=== PATIENT | male | born 1935 | race Caucasian/White ===

== ENCOUNTER 2018-02-01 08:48 | Outpatient (CLI) | payer MEDICARE, MEDICAID ==
--- NOTE | 2018-02-01 11:06 | CT ---
CT OF THE CHEST WITH CONTRAST: Comparison: 12-27-06, chest x-ray 11-14-16. History: Abnormal chest x-ray with shortness of breath. Technique: Multiple contiguous axial images were obtained in a CT of the chest with contrast. Coronal reformats were performed. FINDINGS: There is a calcified granuloma in the right middle lobe. There is a small left pleural effusion with adjacent atelectasis versus infiltrate. No other infiltrates are seen in the lungs. The heart is normal in size without focal cardiac abnormality. No hilar or mediastinal lymphadenopath y are seen. Atherosclerotic calcifications are seen in the aorta. Calcifications are also seen in the coronary arteries. Degenerative changes are seen in the spine. There are cysts in the left kidney measuring up to 6.6 c m in size. There appears to be a small cyst in the liver. The other visualized subdiaphragmatic struc tures are unremarkable. The chest wall soft tissues are unremarkable. IMPRESSION: 1. Small left pleural effusion with adjacent atelectasis versus infiltrate. 2. Left renal cysts. 3. Hepatic cyst. POS: JESÚS
== END 2018-02-01 08:49 | disposition home or self-care (01) ==
LOC: CT 08:48
PROVIDERS: ATTEND Internal Medicine
DX: R91.8 Other nonspecific abnormal finding of lung field (principal); J90 Pleural effusion, not elsewhere classified; N28.1 Cyst of kidney, acquired; K76.89 Other specified diseases of liver
CPT/HCPCS: 71260; 82565

== ENCOUNTER 2018-11-18 03:24 | Inpatient (IN) | payer MEDICARE, MEDICAID ==
[2018-11-18 03:50] LABS: Mean Corpuscular HGB CONC 32.6 g/dL (32.0-36.0); Mean Corpuscular Hemoglobin 30.1 pg (27.0-31.0); Mean Corpuscular Volume 92.2 fL (78.0-98.0); Mean Platelet Volume 9.9 fL (7.4-10.4); Platelet Count 160 thou/uL (130-400); RBC Distribution Width 13.9 % (11.5-14.5); Red Blood Cell (RBC) Count 3.99 mill/uL (4.70-6.10)
[2018-11-18] MEDS ORDERED: Norepinephrine 8 MG/0.9% NS 250 ML ONE (03:58)
[2018-11-18 04:04] LABS: Lactate 1.16 mmol/L (0.50-2.20)
[2018-11-18 04:10] LABS: Band 3 % (5-11); Hypochromia SLIGHT = 6-15 cells (100X) (0-5/hpf); Lymphocytes 4 % (21-51); MDiff Complete? YES; Monocytes 3 % (0-10); Neutrophil 90 % (42-75); Platelet Morphology Comment Appears Adequate
[2018-11-18 04:13] LABS: ALT (SGPT) 8 U/L (8-55); AST (SGOT) 16 U/L (5-34); Albumin 3.2 g/dL (3.4-4.8); Alkaline Phosphatase 81 U/L (40-150); Anion Gap 14 mmol/L (10-20); BUN (Urea Nitrogen) 44 mg/dL (8.4-25.7); Bilirubin, Total 0.5 mg/dL (0.2-1.2); Calc. Creatinine Clearance 0 mL/min (70-130); Calcium 8.6 mg/dL (7.8-10.44); Carbon Dioxide 22 mmol/L (23-31); Chloride 108 mmol/L (98-107); Estimated GFR-MDRD 30; Glucose 143 mg/dL (83-110); Lipase 19 U/L (8-78); Potassium 3.8 mmol/L (3.5-5.1); Protein, Total 6.2 g/dL (5.8-8.1); Sodium 140 mmol/L (136-145)
[2018-11-18 04:22] LABS: Bilirubin Small (Negative); Blood, Urine Small (Negative); Clarity CLOUDY (Clear); Glucose, Urine (Dipstick) Negative (Negative); Leukocyte Negative (Negative); Nitrite Negative (Negative); Protein, Urine (Dipstick) 100 mg/dL (Neg-Trace); Specific Gravity, Urine 1.024 (1.002-1.036)
[2018-11-18 04:25] LABS: Bacteria/HPF None Seen HPF (None Seen)
[2018-11-18 04:27] LABS: Pathc Cast-AUWi Flag 10.61 (0-2.49)
[2018-11-18 04:36] LABS: Hyaline Casts/LPF 0-3 HYALINE CAST LPF (0-3 Hyaline); Other Casts/LPF 0-3 COARSE GRAN LPF (0-3 Hyaline); Renal Epithelial None Seen HPF (0-3); Transitional Epithelial NONE SEEN HPF (0-3)
[2018-11-18 04:40] LABS: CKMB 2.9 ng/mL (0-6.6)
[2018-11-18 06:34] LABS: PTT 41.6 SEC (22.9-36.1); Prothrombin Time 22.3 SEC (12.0-14.7)
[2018-11-18] MEDS ORDERED: Cefepime 2 GM in Sodium Chloride 0.9% 100 ML IVPB SCH (06:45)
[2018-11-18] MEDS ORDERED: Diabetic Tussin 200 MG/10 ML UDCUP PO PRN (07:22)
[2018-11-18] MEDS ORDERED: Loratadine 10 MG TAB PO PRN (07:22)
[2018-11-18] MEDS ORDERED: Acetaminophen 650 MG Suppository PR PRN (07:22)
[2018-11-18] MEDS ORDERED: VANC AND ABX IVPB PRN (07:22)
[2018-11-18] MEDS ORDERED: Bisacodyl 5 MG TAB PO PRN (07:22)
[2018-11-18] MEDS ORDERED: Acetaminophen 325 MG TAB PO PRN (07:22)
[2018-11-18] MEDS ORDERED: Cepastat Lozenges 1 LOZ PO PRN (07:22)
[2018-11-18] MEDS ORDERED: Artificial Tears 18 DROP/0.9 ML EA EYE PRN (07:22)
[2018-11-18] MEDS ORDERED: Sodium Chloride 0.65% Nasal 44 ML BOT EA NARE PRN (07:22)
[2018-11-18] MEDS ORDERED: Ondansetron PF 4 MG/2 ML Vial IVP PRN (07:22)
[2018-11-18] MEDS ORDERED: Senokot S 8.6-50 MG TAB PO PRN (07:22)
[2018-11-18] MEDS ORDERED: Eucerin (Mineral Oil/Petrolatum,White) 30 gm Jar TOP PRN (07:22)
[2018-11-18] MEDS ORDERED: Bisacodyl 10 MG SUPP PR PRN (07:22)
[2018-11-18] MEDS ORDERED: Ondansetron ODT 4 MG TAB SL PRN (07:22)
[2018-11-18] MEDS ORDERED: Sodium Chloride 0.9% 1,000 ML IV SCH (07:30)
[2018-11-18] MEDS ORDERED: Norepinephrine 8 MG/0.9% NS 250 ML IVPB SCH (07:30)
--- NOTE | 2018-11-18 07:36 | CT ---
CT OF THE BRAIN WIHOUT CONTRAST: Date: 11/18/18 INDICATION: Altered mental status and fever. COMPARISON: None. FINDINGS: There is generalized cerebral and cerebellar atrophy. There is moderate chronic small vessel white ma tter ischemic change. There is some mild prominence of the lateral ventricles, likely related to gene ralized atrophy. There is a remote lacunar infarct involving both cerebellar hemispheres. There is pr ominent sulcation involving the left frontal convexity, best seen on image 24 of series 2, that is romano spicious for prior remote cortical infarct versus potentially an extra-axial CSF density lesion such as an arachnoid cyst. No acute intracranial hemorrhage is evident. Septum pellucidum and third ventri reynold are midline. Skull is intact. There is mucosal thickening within the ethmoid air cells. There is a mild right mastoid effusion. IMPRESSION: 1. No definite acute intracranial abnormality. 2. Prominent cerebral and cerebellar atrophy with slight prominence of the lateral ventricle, most l ikely related to ex vacuo dilatation. 3. Remote lacunar infarcts involving the cerebellar hemispheres, left basal ganglia with prominent h ypodensity involving the left frontal convexity which may reflect a cortically based infarct with enc ephalomalacia versus potentially an extra-axial arachnoid cyst. Follow-up MRI of the brain with and w ithout contrast may be helpful for improved characterization. POS: LAURA
--- NOTE | 2018-11-18 08:03 | RAD ---
CHEST 1 VIEW: Date: 11/18/18 INDICATION: Emergency room examination for fever. COMPARISON: Prior exam dated 11/14/[address] examination dated 02/01/18. FINDINGS: The left lower lobe air space consolidation persists. Cardiomegaly and pulmonary vascular congestion present. Chronic lung changes are similar appearing. Calcified granuloma in the right middle lobe per sists. No acute osseous abnormality is evident. IMPRESSION: Persistent consolidation of the left lower lobe. Findings may reflect an obstructive pneumonia or pos sibly recurrent aspiration. Repeat CT examination of the thorax may be helpful for better characteriz ation. POS: BH
[2018-11-18 08:09] LABS: Troponin I 1.682 ng/mL (< 0.028)
[2018-11-18] MEDS ORDERED: Famotidine/PF 20 mg/2ml Vial SLOW IVP SCH (09:00)
[2018-11-18] MEDS ORDERED: Famotidine 20 MG TAB PO SCH (09:00)
[2018-11-18] MEDS: Sodium Chloride 0.9% 1,000 ML IV SCH ×2 (10:30→20:16)
--- NOTE | 2018-11-18 10:49 | HP ---
PRIMARY CARE PHYSICIAN: Dr. Lilly. REASON FOR ADMISSION: Septic shock. HISTORY OF PRESENT ILLNESS: An 83-year-old male who lives at [facility]. Paramedics were called because the patient was having fever, hypoxia, tachycardia, and hypotension. His temperature was 101.2. He was unresponsive. As per , the patient is normally alert and oriented x1 or 2, but he was yesterday more lethargic and not following any commands. He appeared altered from his baseline and that is why the patient was sent to emergency room. In the emergency room, the patient's blood pressure was low at 66/39. Sepsis alert was initiated. He had central line placed. He required Levophed drip as well as a Claudia Hugger for relatively low temperature. The patient's blood pressure improved after Levophed in the emergency room. This morning, the was present at bedside, who reports that she saw him two days ago. At that time, he appeared baseline. The patient does have intermittent cough after thin liquid. He is on modified mechanical soft diet and nectar-thick liquid. He had a PEG tube couple of years ago, which was discontinued and removed. The [facility] prison, but is present, who reports that CPR is okay in case of cardiopulmonary arrest happens, but she is strictly against about intubation. The patient is altered from his baseline. He is not able to provide any good history, but to direct question, he denies any chest pain or palpitation. He feels mild congestion. He denies any upper respiratory symptoms. He denies any constipation, diarrhea, melena, or hematochezia. He does not have any UTI symptoms. prison people noted that he was coughing and he was having wheezing for last couple of days. REVIEW OF SYSTEMS: All review of systems tried to review the patient, but unable to review and not reliable because of altered mental status with encephalopathy. PAST MEDICAL HISTORY: Advanced Alzheimer dementia; osteoarthritis; oropharyngeal dysphagia, on modified diet; gout; glaucoma, cataract; history of TIA; hypertension; peripheral vascular disease; benign enlargement of prostate; history of throat cancer, required radiation. PAST SURGICAL HISTORY: Hemorrhoid surgery, back surgery, tracheostomy, and subsequent reversal. PAST PSYCHIATRIC HISTORY: Anxiety, depression, and dementia. SOCIAL HISTORY: The patient has DNR status at prison. He lives at [facility]. No history of tobacco, alcohol, or illicit drug abuse. The patient is wheelchair-bound. He is on modified diet. FAMILY HISTORY: No family history of coronary artery disease, stroke, or cancer. ALLERGIES: 1. DOXYCYCLINE. 2. PENICILLIN. 3. SULFA DRUGS. CURRENT HOME MEDICATIONS: 1. Allopurinol 300 mg daily. 2. MiraLAX 17 g daily. 3. Norvasc 10 mg daily. 4. Lisinopril 5 mg daily. 5. Depakote 125 mg twice daily. 6. Celexa 10 mg daily. 7. Trazodone 50 mg at bedtime. 8. Travatan Z ophthalmic drops at bedtime. 9. Gabapentin 800 mg twice daily. 10. Colace 100 mg daily. 11. Coumadin 7.5 mg Thursday, Thursday, Thursday and 5 mg on the rest of the days. EMERGENCY ROOM COURSE: The patient required central line placement. He is given cefepime, vancomycin, Levaquin, Levophed drip, and IV fluid. PHYSICAL EXAMINATION: VITAL SIGNS: Lowest blood pressure 66/39, pulse 82, respiratory rate 22, saturation 91% on room air, weight 101.2 kg, and temperature 99.3. Currently, blood pressure 112/67. GENERAL: The patient is currently alert, follows simple command, arousable, confused from baseline. HEENT: Head, normocephalic and atraumatic. Eyes pupils round and reactive to light. Extraocular muscles intact. ENT, oropharynx within normal limit. Moist mucous membranes. No oral lesion. No pharyngeal erythema. No exudate. NECK: Supple. No JVD. No thyromegaly. No carotid bruit. LUNGS: Bilateral end-expiratory wheezing with scattered rales at the base of the lung. Decreased air entry. CARDIAC: S1 and S2 appears regular without any significant murmur. ABDOMEN: Soft. Bowel sounds present. Nontender. Nondistended. No organomegaly. No mass. No suprapubic tenderness. BACK: Unremarkable. No CVA tenderness. GENITOURINARY: Peters catheter in place. EXTREMITIES: Upper extremities; passive movement of all joints is normal. Lower extremity, no edema. Good distal pulsation SKIN: No skin rash. HEMATOLOGICAL SYSTEM: No lymphadenopathy. PSYCHIATRIC: Flat affect. NEUROLOGIC: Nonfocal examination. He moves all four limbs. Grossly nonfocal neurological examination. SIGNIFICANT LABORATORY DATA: EKG showing normal sinus rhythm, premature ventricular complexes. Chest x-ray based on my review, consolidation of left lower lobe. CBC; WBC 24.0, hemoglobin 12.0, platelet 160 with bandemia. INR 2.0. BMP; sodium 140, potassium 3.8, chloride 108, carbon dioxide 22, BUN 44, creatinine 2.09, glucose 143, calcium 8.6. LFT; AST 16, ALT 8, alkaline phosphatase 81, albumin 3.2, lipase 19. TSH 0.55, CK-MB 2.9. Troponin 0.454, then 1.682. Urinalysis suspicious for UTI as well. CT brain based on my review, no acute intracranial process. ASSESSMENT AND PLAN: 1. Sepsis with acute organ dysfunction with septic shock. The patient was hypotensive. He was given IV fluid. He required Levophed drip in the emergency room. Currently, blood pressure has improved. He also has associated acute kidney failure. Source of infection is most likely aspiration pneumonia. Possibility of urinary tract infection cannot be entirely excluded. He also has lactic acidosis as well as [id number] myocardial infarction, type 2 because of demand ischemia. The patient will require admission in ICU. Levophed drip will be titrated. We will closely monitor his hemodynamics. 2. Acute kidney failure. The patient has very poor p.o. intake because of his modified diet. He has currently creatinine of 2.09. Most likely, this is from sepsis as well as his poor p.o. intake. He will be given IV fluid and will repeat BMP tomorrow. We will avoid nephrotoxins agent. 3. Demand ischemia of myocardium. His troponin is significantly elevated. Echocardiography will be obtained. Cardiology will be consulted. Most likely, this is related with demand ischemia. We will continue with aspirin 325 mg p.o. daily. 4. Acute aspiration pneumonia. The patient will be given broad-spectrum antibiotic therapy with cefepime, Levaquin, and vancomycin, and pharmacy will be adjusting dose based on renal function. Probiotics with Florastor 250 mg daily. 5. DuoNeb therapy q.6 hourly p.r.n. Pulmonary group is already consulted. This patient will need speech therapy evaluation. At this point, if the patient has swallowing dysfunction, then the patient has agreed and also agreed with PEG tube placement if needed. 6. Suspected urinary tract infection. Follow up on culture result. The patient is already on broad-spectrum antibiotic therapy. 7. Advanced Alzheimer dementia. Supportive care. 8. Gout. Continue allopurinol 300 mg daily. 9. Chronic anticoagulation. Currently, INR is therapeutic. We will monitor PT/ INR. Pharmacy will adjust warfarin dose. 10. Anxiety and depression. We will resume the patient's home medications, Celexa and Depakote as per prison dosage when the patient able to take p.o. intake. 11. Glaucoma. We will continue Travatan Z ophthalmic drops at bedtime. 12. History of hypertension, but currently low blood pressure. We will hold on antihypertensive medication. 13. Deep venous thrombosis prophylaxis. The patient is already on warfarin therapy. GI prophylaxis, Pepcid 20 mg IV daily. CODE STATUS: I spoke with the patient's at bedside, and she wants CPR to be done in case of cardiopulmonary arrest, but she is strictly against about intubation. This patient has [id number] DNR at prison, but the decided to keep as [id number] status. Palliative Care will be consulted. DISPOSITION PLAN: Based on clinical course. Total time spent providing critical care to this patient in the emergency room, 35 minutes. Job ID: [id number] MTDD
[2018-11-18 11:22] LABS: Troponin I 4.331 ng/mL (< 0.028)
--- NOTE | 2018-11-18 13:25 | CON ---
DATE OF CONSULTATION: 11/18/2018 TIME SPENT: This is a 45-minute critical care time. REASON FOR CONSULTATION: Septic shock. HISTORY OF PRESENT ILLNESS: The patient is an 83-year-old male, who was sent here from a senior care with fever, low O2 sats, rapid heart rate, and low blood pressure. He was treated with fluids. He had a central line inserted. Levophed has been started. He is demented and cannot give me much in the way of medical history. I am told by the nursing staff that he may have a left lower lobe pneumonia. PAST MEDICAL HISTORY: 1. Apparently, he chronically aspirates. 2. Advanced Alzheimer disease. 3. Osteoarthritis. 4. Gout. 5. Glaucoma. 6. Cataracts. 7. Transient ischemic attacks. 8. Hypertension. 9. Peripheral vascular disease. 10. Benign prostatic hypertrophy. 11. Throat cancer, treated with radiation therapy. PAST SURGICAL HISTORY: 1. Hemorrhoid surgery. 2. Back surgery. 3. Tracheostomy with removal. 4. PEG tube placement and removal. PSYCHIATRIC HISTORY: Remarkable for anxiety, depression, dementia. SOCIAL HISTORY: Apparently, he is a DNR status in the senior care. Does not smoke. Does not use illicit drugs. Wheelchair bound. FAMILY MEDICAL HISTORY: Negative for lung disease. ALLERGIES: DOXYCYCLINE, PENICILLIN, AND SULFA DRUGS. MEDICATIONS: Prior to admission; 1. Allopurinol. 2. MiraLAX. 3. Norvasc. 4. Lisinopril. 5. Depakote. 6. Celexa. 7. Trazodone. 8. Travatan. 9. Gabapentin. 10. Colace. 11. Coumadin. REVIEW OF SYSTEMS: Cannot be obtained secondary to the patient's altered mental status. PHYSICAL EXAMINATION: VITAL SIGNS: Blood pressure currently in the 90s/50s, pulse 80, respirations 20, O2 saturation 95% on nasal cannula, temperature 99.3. GENERAL: The patient is able to follow commands when stimulated. HEENT: Both pupils appear as if surgeries had been performed in the past. Oropharynx is dry. NECK: Without adenopathy, JVD, or bruits. LUNGS: Fairly clear bilaterally. CARDIOVASCULAR: S1, S2. Regular. ABDOMEN: Soft, obese, nontender, nondistended. EXTREMITIES: He has right femoral central line. He has stasis changes in his right ankle, extending down to his right feet. LABORATORY DATA: White blood cell count 24.0, hematocrit 36.8, and platelet count 160, with 90% neutrophils, 3% bands. INR 2.0, PTT 41.6. Sodium 140, potassium 3.8, chloride 108, CO2 of 22, BUN 44, creatinine 2.1, glucose 143, anion gap is 10. Troponin 4.3. Lactic acid was 1.2. TSH 0.556. Chest x-ray demonstrates cardiomegaly. There may be an infiltrate in the left base comparing to a film done 2 years ago. He also had chronic changes on left at that time. ASSESSMENT: 1. Probable sepsis, although he may just be clinically dry. He does not have lactic acidosis. Of note, he does have evidence of coronary ischemia. 2. Advanced age. 3. Alzheimer dementia. PLAN: 1. Would continue IV fluid resuscitation. 2. Levophed as needed to keep MAP greater than 65. 3. Agree with Levaquin, vancomycin, cefepime. 4. Follow up culture results. 5. Pepcid for GI prophylaxis. 6. Currently anticoagulated with Coumadin, which should be sufficient for DVT prophylaxis. I will follow with you. Job ID: [id number]
[2018-11-18 15:46] VITALS: BMI 29.8
--- NOTE | 2018-11-18 19:54 | CON ---
DATE OF CONSULTATION: 11/18/2018 HISTORY OF PRESENT ILLNESS: The patient is an 83-year-old gentleman who presented with altered mental status. The patient states he has no previous cardiac history. The patient lives in a local longterm. He apparently became disoriented. He was found to be hypotensive and admitted for further evaluation. The patient denies having any chest discomfort or dyspnea. PAST MEDICAL HISTORY: 1. Dementia. 2. History of TIA. 3. Glaucoma. 4. Peripheral vascular disease. PAST SURGICAL HISTORY: Back surgery, tracheostomy,and hemorrhoid surgery. SOCIAL HISTORY: Magnified Detention. ALLERGIES: PENICILLIN, SULFA, DOXYCYCLINE. MEDICATIONS: See nursing list. PHYSICAL EXAMINATION: GENERAL: Ill-appearing gentleman, hypotensive. VITAL SIGNS: Blood pressure 116/63 on Levophed. NECK: Showed no jugular venous distention. LUNGS: Clear to auscultation. HEART: Regular rate and rhythm. Normal S1 and S2. ABDOMEN: Distended. EXTREMITIES: Showed no edema. LABORATORY DATA: White blood cell count 24, hemoglobin 12.0, hematocrit 36.6, and platelets are 160. Sodium was 140, potassium 3.8, chloride 108, bicarbonate 22 , BUN 44, creatinine is 2.0, glucose 143, troponin 4.3, INR was 2.0. EKG revealed him to have normal sinus rhythm with voltage criteria for left ventricular hypertrophy. No acute ST-T wave changes. Q-waves suggestive of previous inferior infarct. IMPRESSION: 1. Septic shock. 2. Non-Q-wave myocardial infarction. 3. Renal insufficiency. 4. Dementia. This gentleman presents with septic shock and suffered a non-Q-wave myocardial infarction. The patient is not fully anticoagulated on Coumadin. The patient was treated with aspirin and would add lipid lowering medication. Continue to support the patient's blood pressure with Levophed. The patient's prognosis is very guarded. We will check the patient's echocardiogram. Critical care note time is 30 minutes. Job ID: [id number] MTDD
[2018-11-18] MEDS: Atorvastatin Calcium 40 MG TAB PO SCH (20:19)
[2018-11-18] MEDS ORDERED: Cefepime 1 GM in Sodium Chloride 0.9% 100 ML IVPB SCH (21:00)
[2018-11-19 03:56] LABS: #Eosinphils 0.3 thou/uL (0.0-0.7); #Lymphocytes 1.8 thou/uL (1.20-3.40); #Monocytes 1.2 thou/uL (0.11-0.59); #Neutrophils 8.9 thou/uL (1.40-6.50); %Basophils 0.1 % (0.0-1.0); %Eosinophils 2.2 % (0.0-10.0); %Lymphocytes 14.4 % (21.0-51.0); %Neutrophils 73.3 % (42.0-75.0); Hemoglobin 11.7 g/dL (14.0-18.0); Mean Corpuscular HGB CONC 32.3 g/dL (32.0-36.0); Mean Corpuscular Hemoglobin 30.4 pg (27.0-31.0); Mean Platelet Volume 10.2 fL (7.4-10.4); Platelet Count 140 thou/uL (130-400); RBC Distribution Width 14.1 % (11.5-14.5); Red Blood Cell (RBC) Count 3.84 mill/uL (4.70-6.10); White Blood Cell (WBC) Count 12.2 thou/uL (4.8-10.8)
[2018-11-19 04:01] LABS: INR-International Normal Ratio 2.3
[2018-11-19 04:14] LABS: Vancomycin, Random 18.8 ug/mL (See Comment)
[2018-11-19 04:18] LABS: ALT (SGPT) 14 U/L (8-55); AST (SGOT) 40 U/L (5-34); Albumin 3.2 g/dL (3.4-4.8); Alkaline Phosphatase 71 U/L (40-150); Anion Gap 14 mmol/L (10-20); BUN (Urea Nitrogen) 34 mg/dL (8.4-25.7); Bilirubin, Total 0.3 mg/dL (0.2-1.2); Calc. Creatinine Clearance 49 mL/min (70-130); Calcium 8.3 mg/dL (7.8-10.44); Carbon Dioxide 20 mmol/L (23-31); Chloride 113 mmol/L (98-107); Estimated GFR-MDRD 47; Globulin 2.9 g/dL (2.4-3.5); Glucose 93 mg/dL (83-110); Potassium 3.9 mmol/L (3.5-5.1); Protein, Total 6.1 g/dL (5.8-8.1); Sodium 143 mmol/L (136-145)
[2018-11-19] MEDS ORDERED: Vancomycin HCl 1.5 GM in Sodium Chloride 0.9% 250 ML 300 ML IVPB SCH (06:00)
[2018-11-19] MEDS: Sodium Chloride 0.9% 1,000 ML IV SCH ×2 (08:45→21:03)
[2018-11-19] MEDS: Famotidine 20 MG TAB PO SCH (09:00)
[2018-11-19] MEDS ORDERED: Aspirin 325 MG TAB PO SCH (09:00)
--- NOTE | 2018-11-19 09:02 | PRG ---
DATE OF SERVICE: 11/19/2018 SUBJECTIVE: He was weaned off the Levophed this morning. He is actually awake, alert, and communicative, which is totally different from yesterday. OBJECTIVE: VITAL SIGNS: Temperature 97.9, pulse 88, blood pressure 147/62, O2 saturation 93%. HEENT: Unremarkable. NECK: Without adenopathy, JVD, or bruits. LUNGS: Clear anteriorly. CARDIAC: S1, S2. Regular. ABDOMEN: Soft. EXTREMITIES: No edema. LABORATORY DATA: Sodium 143, potassium 3.9, chloride 113, CO2 20, BUN 34, creatinine 1.4, glucose 93. Troponin 4.3, INR 2.3. White blood cell count 12.2, hematocrit 36.1, and platelet count 140. His echo demonstrated EF of 40% to 45% with decreased LV function. ASSESSMENT: 1. Hypotension, sepsis versus volume depletion. 2. Advanced age. 3. Alzheimer type dementia. PLAN: 1. He will continue antibiotics and this will be adjusted based on culture results. 2. He is stable for transfer to the floor. 3. We will continue to follow for at least 24 more hours. Job ID: [id number]
[2018-11-19] MEDS: Aspirin 81 mg Enteric Coated Tablet PO SCH (10:02)
[2018-11-19] MEDS: Cefepime 1 GM in Sodium Chloride 0.9% 100 ML IVPB SCH (10:02)
[2018-11-19] MEDS: Famotidine/PF 20 mg/2ml Vial SLOW IVP SCH (10:03)
--- NOTE | 2018-11-19 11:13 | PDOC.PN ---
- Subjective Encounter Start Date: 11/19/18 Encounter Start Time: 09:00 -: old records requested/rev Patient seen and examined. No new complaints. No overnight events - Objective Resuscitation Status - Order Detail: 11/18/18 10:04 Resuscitation Status Routine Resuscitation Status: PRTL: Cardiac only Discussed with: SOREN Reviewed: Yes Vital Signs & Weight: Vital Signs (12 hours) Temp Pulse Resp Pulse Ox 11/19/18 07:57 77 15 99 11/19/18 04:00 97.9 F 11/19/18 00:26 73 12 99 11/19/18 00:00 97.8 F Weight Admit Weight 3.231 oz Weight 200 lb 6.403 oz Most Recent Monitor Data Heart Rate from ECG 96 NIBP 136/78 NIBP BP-Mean 97 Respiration from ECG 17 SpO2 96 I&O: 11/18/18 11/19/18 11/20/18 06:59 06:59 06:59 Intake Total 1891.3 Output Total 1685 Balance 206.3 Result Diagrams: 11/19/18 03:45 11/19/18 03:45 EKG Reviewed by me: Yes (nsr) Phys Exam - Physical Examination Constitutional: NAD HEENT: PERRLA, moist MMs, sclera anicteric Neck: no JVD, supple Respiratory: no wheezing, no rales, no rhonchi Cardiovascular: RRR, no rub SM+ Gastrointestinal: soft, non-tender, no distention, positive bowel sounds Musculoskeletal: no edema, pulses present chronic change+ Neurological: non-focal Lymphatic: no nodes Psychiatric: normal affect Skin: no rash, normal turgor Dx/Plan (1) Acute kidney failure Status: Acute (2) Aspiration pneumonia Code(s): J69.0 - PNEUMONITIS DUE TO INHALATION OF FOOD AND VOMIT Status: Acute (3) Moderate mitral regurgitation Code(s): I34.0 - NONRHEUMATIC MITRAL (VALVE) INSUFFICIENCY Status: Acute (4) Moderate tricuspid regurgitation Code(s): I07.1 - RHEUMATIC TRICUSPID INSUFFICIENCY Status: Acute (5) NSTEMI (non-ST elevated myocardial infarction) Code(s): I21.4 - NON-ST ELEVATION (NSTEMI) MYOCARDIAL INFARCTION Status: Acute (6) Septic shock Code(s): A41.9 - SEPSIS, UNSPECIFIED ORGANISM; R65.21 - SEVERE SEPSIS WITH SEPTIC SHOCK Status: Acute (7) Systolic dysfunction Code(s): I51.9 - HEART DISEASE, UNSPECIFIED Status: Acute (8) UTI (urinary tract infection) Status: Acute (9) Anxiety and depression Code(s): F41.9 - ANXIETY DISORDER, UNSPECIFIED; F32.9 - MAJOR DEPRESSIVE DISORDER, SINGLE EPISODE, UNSPECIFIED Status: Chronic (10) Chronic anticoagulation Code(s): Z79.01 - MCFP (CURRENT) USE OF ANTICOAGULANTS Status: Chronic (11) Dementia Code(s): F03.90 - UNSPECIFIED DEMENTIA WITHOUT BEHAVIORAL DISTURBANCE Status: Chronic (12) Glaucoma Code(s): H40.9 - UNSPECIFIED GLAUCOMA Status: Chronic (13) Gout Code(s): M10.9 - GOUT, UNSPECIFIED Status: Chronic (14) Hypertension Code(s): I10 - ESSENTIAL (PRIMARY) HYPERTENSION Status: Chronic (15) Oropharyngeal dysphagia Code(s): R13.12 - DYSPHAGIA, OROPHARYNGEAL PHASE Status: Chronic - Plan cont current plan of care, continue antibiotics * transfer to [facility] * continue modified diet * follow culture * continue empiric antibiotics * doing well * medication reviewed as below * symptomatic treatment. Review of Systems - Review of Systems ENT: negative: Ear Pain, Ear Discharge, Nose Pain, Nose Discharge, Nose Congestion, Mouth Pain, Mouth Swelling, Throat Pain, Throat Swelling, Other Respiratory: negative: Cough, Dry, Shortness of Breath, Hemoptysis, SOB with Excertion, Pleuritic Pain, Sputum, Wheezing Cardiovascular: negative: chest pain, palpitations, orthopnea, paroxysmal nocturnal dyspnea, edema, light headedness, other Gastrointestinal: negative: Nausea, Vomiting, Abdominal Pain, Diarrhea, Constipation, Melena, Hematochezia, Other Genitourinary: negative: Dysuria, Frequency, Incontinence, Hematuria, Retention , Other Musculoskeletal: negative: Neck Pain, Shoulder Pain, Arm Pain, Back Pain, Hand Pain, Leg Pain, Foot Pain, Other - Medications/Allergies Allergies/Adverse Reactions: Allergies Allergy/AdvReac Type Severity Reaction Status Date / Time doxycycline Allergy Verified 11/10/16 15:38 Penicillins Allergy Verified 11/10/16 15:38 Sulfa (Sulfonamide Allergy Verified 11/10/16 15:38 Antibiotics) Medications: Current Medications Acetaminophen (Tylenol) 650 mg PO Q4H PRN PRN Reason: Headache/Fever/Mild Pain (1-3) Acetaminophen (Tylenol) 650 mg NC Q4H PRN PRN Reason: Headache/Fever/Mild Pain (1-3) Albuterol/Ipratropium (Duoneb) 3 ml NEB [id number] [facility] Last Admin: 11/19/18 07:57 Dose: 3 ml Artificial Tears (Tears Naturale) 2 drop EA EYE PRN PRN PRN Reason: Dry Eyes Aspirin (Ecotrin) 81 mg PO DAILY [facility] Last Admin: 11/19/18 10:02 Dose: 81 mg Atorvastatin Calcium (Lipitor) 40 mg PO HS [facility] Last Admin: 11/18/18 20:19 Dose: Not Given Bisacodyl (Dulcolax) 10 mg NC DAILYPRN PRN PRN Reason: Constipation Bisacodyl (Dulcolax) 10 mg PO DAILYPRN PRN PRN Reason: Constipation Famotidine (Pepcid) 20 mg PO DAILY [facility] Last Admin: 11/19/18 09:00 Dose: Not Given Famotidine (Pepcid) 20 mg SLOW IVP DAILY [facility] Last Admin: 11/19/18 10:03 Dose: 20 mg Guaifenesin (Robitussin Sf) 200 mg PO Q4H PRN PRN Reason: Cough Cefepime HCl 1 gm/ Sodium (Chloride) 100 mls @ 200 mls/hr IVPB 0700 [facility] Last Admin: 11/19/18 10:02 Dose: 100 mls Sodium Chloride (Normal Saline 0.9%) 1,000 mls @ 100 mls/hr IV .Q10H [facility] Last Admin: 11/19/18 08:45 Dose: 1,000 mls Ascorbic Acid 1,500 mg/ Sodium (Chloride) 53 mls @ 100 mls/hr IVPB Q6HR [facility] Stop: 11/22/18 12:01 Last Admin: 11/19/18 05:41 Dose: 53 mls Thiamine HCl 200 mg/ Sodium (Chloride) 52 mls @ 100 mls/hr IVPB Q12HR [facility] Stop: 11/22/18 21:01 Last Admin: 11/19/18 10:09 Dose: 52 mls Levofloxacin 750 mg/ Device 150 mls @ 100 mls/hr IVPB Q2DAYS [facility] Loratadine (Claritin) 10 mg PO DAILYPRN PRN PRN Reason: Sinus Symptoms Mineral Oil/White Petrolatum (Eucerin Cream) 0 gm TOP BIDPRN PRN PRN Reason: Dry Skin Miscellaneous Medication (Pharmacy To Dose) 1 each IVPB DAILYPRN PRN PRN Reason: LABS Ondansetron HCl (Zofran Odt) 4 mg SL Q6H PRN PRN Reason: Nausea/Vomiting Ondansetron HCl (Zofran) 4 mg IVP Q6H PRN PRN Reason: Nausea/Vomiting Senna/Docusate Sodium (Senokot S) 2 tab PO BID PRN PRN Reason: Constipation Sodium Chloride ([place] Nasal [place] 0.65%) 0 ml EA NARE QIDPRN PRN PRN Reason: Nasal Congestion Throat Lozenges (Cepastat Lozenges) 1 mel PO Q2H PRN PRN Reason: Sore Throat
[2018-11-19] MEDS: Carvedilol 3.125 MG TAB PO SCH (17:00)
[2018-11-19] MEDS: Atorvastatin Calcium 40 MG TAB PO SCH (21:04)
[2018-11-19] MEDS ORDERED: Ziprasidone 20 MG VIAL IM PRN (22:54)
[2018-11-19] MEDS: Lorazepam 2 MG/ML VIAL SLOW IVP PRN (23:10)
[2018-11-20] MEDS ORDERED: Sterile Water 10 ML VIAL FS PRN (00:40)
[2018-11-20] MEDS ORDERED: Furosemide 40 MG/4 ML VIAL ONE (00:47)
[2018-11-20] MEDS ORDERED: Furosemide 40 MG/4 ML VIAL SLOW IVP SCH (01:15)
[2018-11-20 05:47] LABS: INR-International Normal Ratio 2.1; Prothrombin Time 23.5 SEC (12.0-14.7)
[2018-11-20 05:50] LABS: #Basophils 0.1 thou/uL (0.0-0.2); #Eosinphils 0.1 thou/uL (0.0-0.7); #Monocytes 0.8 thou/uL (0.11-0.59); #Neutrophils 10.4 thou/uL (1.40-6.50); %Basophils 0.5 % (0.0-1.0); %Eosinophils 0.5 % (0.0-10.0); %Lymphocytes 7.9 % (21.0-51.0); %Monocytes 6.1 % (0.0-10.0); Hemoglobin 13.1 g/dL (14.0-18.0); Mean Corpuscular HGB CONC 33.2 g/dL (32.0-36.0); Mean Corpuscular Hemoglobin 30.9 pg (27.0-31.0); Mean Corpuscular Volume 93.1 fL (78.0-98.0); Mean Platelet Volume 10.2 fL (7.4-10.4); Platelet Count 160 thou/uL (130-400); RBC Distribution Width 14.1 % (11.5-14.5); Red Blood Cell (RBC) Count 4.23 mill/uL (4.70-6.10); White Blood Cell (WBC) Count 12.2 thou/uL (4.8-10.8)
[2018-11-20 05:54] LABS: Anion Gap 11 mmol/L (10-20); BUN (Urea Nitrogen) 18 mg/dL (8.4-25.7); Calc. Creatinine Clearance 60 mL/min (70-130); Calcium 8.8 mg/dL (7.8-10.44); Carbon Dioxide 29 mmol/L (23-31); Chloride 104 mmol/L (98-107); Estimated GFR-MDRD 60; Glucose 124 mg/dL (83-110); Potassium 3.4 mmol/L (3.5-5.1); Sodium 141 mmol/L (136-145)
[2018-11-20 05:55] LABS: Vancomycin, Random 15.3 ug/mL (See Comment)
[2018-11-20] MEDS ORDERED: Vancomycin HCl 1.5 GM in Sodium Chloride 0.9% 250 ML 300 ML IVPB SCH (06:00)
[2018-11-20] MEDS ORDERED: Sodium Chloride 0.9% 10 ML ONE ×3 (08:26→17:17)
[2018-11-20] MEDS ORDERED: Lisinopril 5 MG TAB PO SCH (09:00)
[2018-11-20] MEDS ORDERED: Cefepime 1 GM in Sodium Chloride 0.9% 100 ML IVPB SCH (10:00)
[2018-11-20] MEDS: Famotidine/PF 20 mg/2ml Vial SLOW IVP SCH (10:02)
[2018-11-20] MEDS: Famotidine 20 MG TAB PO SCH (10:03)
[2018-11-20] MEDS: Aspirin 81 mg Enteric Coated Tablet PO SCH (10:16)
[2018-11-20] MEDS: Carvedilol 3.125 MG TAB PO SCH ×2 (10:17→17:24)
[2018-11-20] MEDS: Cefepime 1 GM in Sodium Chloride 0.9% 100 ML IVPB SCH (11:09)
--- NOTE | 2018-11-20 11:40 | PDOC.PN ---
- Subjective Encounter Start Date: 11/20/18 Encounter Start Time: 07:30 Patient seen and examined. No new complaints. No overnight events - Objective Resuscitation Status - Order Detail: 11/18/18 10:04 Resuscitation Status Routine Resuscitation Status: PRTL: Cardiac only Discussed with: SOREN Reviewed: Yes Vital Signs & Weight: Vital Signs (12 hours) Temp Pulse Resp BP BP Pulse Ox 11/20/18 10:21 85 155/67 H 11/20/18 08:08 95 11/20/18 08:06 87 16 11/20/18 07:54 98.1 F 98 17 144/64 H 97 11/20/18 03:50 98.2 F 97 17 140/78 94 L 11/20/18 00:55 142/80 H 11/20/18 00:25 89 L 11/20/18 00:20 85 16 85 L 11/19/18 23:56 99 160/79 H Weight Admit Weight 3.231 oz Weight 200 lb 6.403 oz Most Recent Monitor Data Heart Rate from ECG 84 NIBP 155/117 NIBP BP-Mean 129 Respiration from ECG 17 SpO2 95 I&O: 11/19/18 11/20/18 11/21/18 06:59 06:59 06:59 Intake Total 1891.3 3337.0 Output Total 1685 5065 Balance 206.3 -1728.0 Result Diagrams: 11/20/18 05:06 11/20/18 05:06 Additional Labs: Accuchecks 11/19/18 20:15 POC Glucose 129 H EKG Reviewed by me: Yes Phys Exam - Physical Examination Constitutional: NAD HEENT: PERRLA, moist MMs, sclera anicteric Neck: no JVD, supple Respiratory: no wheezing, no rales, no rhonchi Cardiovascular: RRR, no significant murmur, no rub Gastrointestinal: soft, non-tender, no distention, positive bowel sounds Musculoskeletal: no edema, pulses present Lymphatic: no nodes Psychiatric: normal affect Skin: no rash, normal turgor Dx/Plan (1) Acute kidney failure Status: Acute (2) Aspiration pneumonia Code(s): J69.0 - PNEUMONITIS DUE TO INHALATION OF FOOD AND VOMIT Status: Acute (3) Moderate mitral regurgitation Code(s): I34.0 - NONRHEUMATIC MITRAL (VALVE) INSUFFICIENCY Status: Acute (4) Moderate tricuspid regurgitation Code(s): I07.1 - RHEUMATIC TRICUSPID INSUFFICIENCY Status: Acute (5) NSTEMI (non-ST elevated myocardial infarction) Code(s): I21.4 - NON-ST ELEVATION (NSTEMI) MYOCARDIAL INFARCTION Status: Acute (6) Septic shock Code(s): A41.9 - SEPSIS, UNSPECIFIED ORGANISM; R65.21 - SEVERE SEPSIS WITH SEPTIC SHOCK Status: Acute (7) Systolic dysfunction Code(s): I51.9 - HEART DISEASE, UNSPECIFIED Status: Acute (8) UTI (urinary tract infection) Status: Acute (9) Anxiety and depression Code(s): F41.9 - ANXIETY DISORDER, UNSPECIFIED; F32.9 - MAJOR DEPRESSIVE DISORDER, SINGLE EPISODE, UNSPECIFIED Status: Chronic (10) Chronic anticoagulation Code(s): Z79.01 - RETIREMENT (CURRENT) USE OF ANTICOAGULANTS Status: Chronic (11) Dementia Code(s): F03.90 - UNSPECIFIED DEMENTIA WITHOUT BEHAVIORAL DISTURBANCE Status: Chronic (12) Glaucoma Code(s): H40.9 - UNSPECIFIED GLAUCOMA Status: Chronic (13) Gout Code(s): M10.9 - GOUT, UNSPECIFIED Status: Chronic (14) Hypertension Code(s): I10 - ESSENTIAL (PRIMARY) HYPERTENSION Status: Chronic (15) Oropharyngeal dysphagia Code(s): R13.12 - DYSPHAGIA, OROPHARYNGEAL PHASE Status: Chronic - Plan cont current plan of care * medication reviewed as below * symptomatic treatment * continue iv antibiotics over weekend * will consider discharge on Thursday. Review of Systems - Review of Systems ENT: negative: Ear Pain, Ear Discharge, Nose Pain, Nose Discharge, Nose Congestion, Mouth Pain, Mouth Swelling, Throat Pain, Throat Swelling, Other Respiratory: negative: Cough, Dry, Shortness of Breath, Hemoptysis, SOB with Excertion, Pleuritic Pain, Sputum, Wheezing Cardiovascular: negative: chest pain, palpitations, orthopnea, paroxysmal nocturnal dyspnea, edema, light headedness, other Gastrointestinal: negative: Nausea, Vomiting, Abdominal Pain, Diarrhea, Constipation, Melena, Hematochezia, Other Genitourinary: negative: Dysuria, Frequency, Incontinence, Hematuria, Retention , Other Musculoskeletal: negative: Neck Pain, Shoulder Pain, Arm Pain, Back Pain, Hand Pain, Leg Pain, Foot Pain, Other Skin: negative: Rash, Lesions, Rodolfo, Bruising, Other - Medications/Allergies Allergies/Adverse Reactions: Allergies Allergy/AdvReac Type Severity Reaction Status Date / Time doxycycline Allergy Verified 11/10/16 15:38 Penicillins Allergy Verified 11/10/16 15:38 Sulfa (Sulfonamide Allergy Verified 11/10/16 15:38 Antibiotics) Medications: Current Medications Acetaminophen (Tylenol) 650 mg PO Q4H PRN PRN Reason: Headache/Fever/Mild Pain (1-3) Acetaminophen (Tylenol) 650 mg DE Q4H PRN PRN Reason: Headache/Fever/Mild Pain (1-3) Albuterol/Ipratropium (Duoneb) 3 ml NEB [id number] [facility] Last Admin: 11/20/18 08:06 Dose: 3 ml Artificial Tears (Tears Naturale) 2 drop EA EYE PRN PRN PRN Reason: Dry Eyes Aspirin (Ecotrin) 81 mg PO DAILY [facility] Last Admin: 11/20/18 10:16 Dose: 81 mg Atorvastatin Calcium (Lipitor) 40 mg PO HS [facility] Last Admin: 11/19/18 21:04 Dose: 40 mg Bisacodyl (Dulcolax) 10 mg DE DAILYPRN PRN PRN Reason: Constipation Bisacodyl (Dulcolax) 10 mg PO DAILYPRN PRN PRN Reason: Constipation Carvedilol (Coreg) 3.125 mg PO BID-WM [facility] Last Admin: 11/20/18 10:17 Dose: 3.125 mg Famotidine (Pepcid) 20 mg PO DAILY [facility] Last Admin: 11/20/18 10:03 Dose: Not Given Famotidine (Pepcid) 20 mg SLOW IVP DAILY [facility] Last Admin: 11/20/18 10:02 Dose: 20 mg Guaifenesin (Robitussin Sf) 200 mg PO Q4H PRN PRN Reason: Cough Ascorbic Acid 1,500 mg/ Sodium (Chloride) 53 mls @ 100 mls/hr IVPB Q6HR [facility] Stop: 11/22/18 12:01 Last Admin: 11/20/18 05:30 Dose: 53 mls Thiamine HCl 200 mg/ Sodium (Chloride) 52 mls @ 100 mls/hr IVPB Q12HR [facility] Stop: 11/22/18 21:01 Last Admin: 11/20/18 10:44 Dose: 52 mls Levofloxacin 750 mg/ Device 150 mls @ 100 mls/hr IVPB Q2DAYS [facility] Last Admin: 11/20/18 06:18 Dose: 150 mls Cefepime HCl 1 gm/ Sodium (Chloride) 100 mls @ 200 mls/hr IVPB 1000 [facility] Last Admin: 11/20/18 10:06 Dose: 100 mls Lisinopril (Zestril) 5 mg PO DAILY [facility] Last Admin: 11/20/18 10:21 Dose: 5 mg Loratadine (Claritin) 10 mg PO DAILYPRN PRN PRN Reason: Sinus Symptoms Lorazepam (Ativan) 0.5 mg SLOW IVP Q4H PRN PRN Reason: Agitation Last Admin: 11/19/18 23:10 Dose: 0.5 mg Mineral Oil/White Petrolatum (Eucerin Cream) 0 gm TOP BIDPRN PRN PRN Reason: Dry Skin Miscellaneous Medication (Pharmacy To Dose) 1 each IVPB DAILYPRN PRN PRN Reason: LABS Ondansetron HCl (Zofran Odt) 4 mg SL Q6H PRN PRN Reason: Nausea/Vomiting Ondansetron HCl (Zofran) 4 mg IVP Q6H PRN PRN Reason: Nausea/Vomiting Senna/Docusate Sodium (Senokot S) 2 tab PO BID PRN PRN Reason: Constipation Sodium Chloride ([place] Nasal [place] 0.65%) 0 ml EA NARE QIDPRN PRN PRN Reason: Nasal Congestion Sterile Water (Water For Injection) 10 ml FS PRN PRN PRN Reason: DILUTENT Throat Lozenges (Cepastat Lozenges) 1 mel PO Q2H PRN PRN Reason: Sore Throat Ziprasidone (Geodon) 10 mg IM Q8HR PRN PRN Reason: Agitation Last Admin: 11/20/18 00:49 Dose: 10 mg
--- NOTE | 2018-11-20 12:49 | PDOC.CTH ---
Cardiology Progress Note - Subjective Patient without complaints. Per at bedside, patient hallucinating last night. Continues today. - Objective Vital Signs Temp Pulse Resp BP BP Pulse Ox 11/20/18 10:21 85 155/67 H 11/20/18 08:08 95 11/20/18 08:06 87 16 11/20/18 07:54 98.1 F 98 17 144/64 H 97 11/20/18 03:50 98.2 F 97 17 140/78 94 L 11/20/18 00:55 142/80 H Admit Weight 3.231 oz Weight 200 lb 6.403 oz 11/19/18 11/20/18 11/21/18 06:59 06:59 06:59 Intake Total 1891.3 3337.0 Output Total 1685 5065 Balance 206.3 -1728.0 - Physical Examination General/Neuro: alert & oriented x3 Neck: no JVD present Lungs: CTA Heart: RRR Abdomen: NT/ND Extremities: other: (trace; bilateral erythema to LEs) - Labs Result Diagrams: 11/20/18 05:06 11/20/18 05:06 Troponin/CKMB CK-MB (CK-2) 2.9 ng/mL (0-6.6) 11/18/18 03:43 Troponin I 4.331 ng/mL (< 0.028) H* 11/18/18 10:40 - Assessment/Plan 1. s/p NSTEMI 2. PNA 3. TATE 4. HTN 5. Sepsis 6. hallucinations Continue conservative management. On Coreg and lisinopril started today. recheck BMP in AM. Monitor neuro status. Agree with the above. Pt seen and examined. See CV meds. Abx.
[2018-11-20] MEDS: Lorazepam 2 MG/ML VIAL SLOW IVP PRN (17:22)
[2018-11-20] MEDS: Atorvastatin Calcium 40 MG TAB PO SCH (20:33)
--- NOTE | 2018-11-20 21:08 | PRG ---
DATE OF SERVICE: 11/20/2018 SERVICE: Pulmonary Medicine. INTERVAL HISTORY: The patient is doing okay from respiratory standpoint. Today's oxygen is off. He is not having any shortness of breath or chest discomfort. Otherwise, he has no apparent distress. PHYSICAL EXAMINATION: VITAL SIGNS: Afebrile, pulse 83, blood pressure 151/74, respirations 18, and saturation 95% on 2 L nasal cannula. GENERAL: The patient is awake and alert, in no apparent distress. LUNGS: Decent air entry. Rhonchi are present. No prolonged expiratory phase. HEART: Normal rate. Regular. ABDOMEN: Soft, nontender, and nondistended. Bowel sounds are positive. MUSCULOSKELETAL: No cyanosis or clubbing. There is no pitting in the bilateral lower extremities. NEUROLOGIC: Grossly nonfocal. LABORATORY DATA: WBC 12.2, hemoglobin 13.1, and platelets 160,000. Creatinine downtrending to 1.15. Basic metabolic profile is otherwise unremarkable. Potassium 3.4. Troponin was previously up trending to 4.3. Blood cultures x2 and urine culture is unremarkable. ASSESSMENT: 1. Acute hypoxic respiratory failure, resolved. 2. Pulmonary infiltrate, likely related to chronic aspiration. 3. Dementia, advanced. 4. Dehydration, severe. 5. Healthcare-associated pneumonia, possible. DISCUSSION AND PLAN: The patient has gotten significantly better with antibiotics and IV hydration. My suspicion is that much of his presentation was associated with dehydrated state. I will give him a dose of potassium. Pulmonary will continue to follow, intermittently during the hospital stay. Job ID: [id number]
[2018-11-21 05:54] LABS: INR-International Normal Ratio 2.5; Prothrombin Time 27.2 SEC (12.0-14.7)
[2018-11-21 06:06] LABS: Anion Gap 15 mmol/L (10-20); BUN (Urea Nitrogen) 16 mg/dL (8.4-25.7); Calc. Creatinine Clearance 67 mL/min (70-130); Calcium 8.6 mg/dL (7.8-10.44); Carbon Dioxide 23 mmol/L (23-31); Chloride 106 mmol/L (98-107); Estimated GFR-MDRD 68; Glucose 93 mg/dL (83-110); Potassium 3.7 mmol/L (3.5-5.1); Sodium 140 mmol/L (136-145)
[2018-11-21 06:07] LABS: Vancomycin, Random 16.4 ug/mL (See Comment)
[2018-11-21] MEDS ORDERED: Sodium Chloride 0.9% 10 ML ONE ×4 (07:42→18:31)
[2018-11-21] MEDS ORDERED: Vancomycin HCl 1.5 GM in Sodium Chloride 0.9% 250 ML 300 ML IVPB SCH (08:00)
[2018-11-21] MEDS: Carvedilol 6.25 MG TAB PO SCH ×2 (08:18→18:29)
[2018-11-21] MEDS: Lisinopril 5 MG TAB PO SCH ×2 (08:18→21:26)
[2018-11-21] MEDS: Aspirin 81 mg Enteric Coated Tablet PO SCH (08:18)
[2018-11-21] MEDS: Citalopram 10 MG TAB PO SCH (10:25)
[2018-11-21] MEDS: Docusate 100 MG CAP PO SCH (10:27)
[2018-11-21] MEDS: Amlodipine 10 MG TAB PO SCH (10:27)
[2018-11-21] MEDS: Divalproex Sodium 125 mg Sprinkle Capsule PO SCH ×2 (10:27→21:27)
[2018-11-21] MEDS: Allopurinol 300 MG TAB PO SCH (10:29)
[2018-11-21] MEDS: Famotidine 20 MG TAB PO SCH (10:30)
[2018-11-21] MEDS: Gabapentin 400 MG CAP PO SCH ×2 (10:32→21:26)
[2018-11-21] MEDS: Multivit, Therapeutic 1 TAB PO SCH (10:33)
[2018-11-21] MEDS: Polyethylene Glycol 3350 17 GM Packet PO SCH (10:33)
--- NOTE | 2018-11-21 10:40 | PDOC.PN ---
- Subjective Encounter Start Date: 11/21/18 Encounter Start Time: 07:45 Patient seen and examined. No overnight events pt is confused, refusing to take meds, requires restraints - Objective Resuscitation Status - Order Detail: 11/18/18 10:04 Resuscitation Status Routine Resuscitation Status: PRTL: Cardiac only Discussed with: SOREN Reviewed: Yes Vital Signs & Weight: Vital Signs (12 hours) Temp Pulse Resp BP BP Pulse Ox 11/21/18 08:18 85 174/75 H 11/21/18 07:55 97.8 F 85 20 174/75 H 94 L 11/21/18 07:53 94 L 11/21/18 07:50 82 12 11/21/18 05:16 166/71 H 11/21/18 04:00 98.9 F 88 16 182/79 H 95 11/21/18 00:52 91 16 94 L 11/21/18 00:00 99.4 F 87 20 143/66 H 94 L Weight Admit Weight 3.231 oz Weight 200 lb 9 oz Most Recent Monitor Data Heart Rate from ECG 84 NIBP 155/117 NIBP BP-Mean 129 Respiration from ECG 17 SpO2 95 I&O: 11/20/18 11/21/18 11/22/18 06:59 06:59 06:59 Intake Total 3337.0 1250 Output Total 5065 1350 Balance -1728.0 -100 Result Diagrams: 11/20/18 05:06 11/21/18 05:26 EKG Reviewed by me: Yes (nsr) Phys Exam - Physical Examination Constitutional: NAD HEENT: PERRLA, sclera anicteric Neck: no JVD, supple Respiratory: no wheezing, no rales, no rhonchi Cardiovascular: RRR, no significant murmur, no rub Gastrointestinal: soft, non-tender, no distention, positive bowel sounds Musculoskeletal: pulses present, edema present Neurological: non-focal, normal sensation Lymphatic: no nodes Psychiatric: normal affect Skin: no rash, normal turgor Dx/Plan (1) Acute kidney failure Status: Resolved (2) Aspiration pneumonia Code(s): J69.0 - PNEUMONITIS DUE TO INHALATION OF FOOD AND VOMIT Status: Acute (3) Moderate mitral regurgitation Code(s): I34.0 - NONRHEUMATIC MITRAL (VALVE) INSUFFICIENCY Status: Chronic (4) Moderate tricuspid regurgitation Code(s): I07.1 - RHEUMATIC TRICUSPID INSUFFICIENCY Status: Chronic (5) NSTEMI (non-ST elevated myocardial infarction) Code(s): I21.4 - NON-ST ELEVATION (NSTEMI) MYOCARDIAL INFARCTION Status: Acute (6) Septic shock Code(s): A41.9 - SEPSIS, UNSPECIFIED ORGANISM; R65.21 - SEVERE SEPSIS WITH SEPTIC SHOCK Status: Resolved (7) Systolic dysfunction Code(s): I51.9 - HEART DISEASE, UNSPECIFIED Status: Acute (8) UTI (urinary tract infection) Status: Acute (9) Anxiety and depression Code(s): F41.9 - ANXIETY DISORDER, UNSPECIFIED; F32.9 - MAJOR DEPRESSIVE DISORDER, SINGLE EPISODE, UNSPECIFIED Status: Chronic (10) Chronic anticoagulation Code(s): Z79.01 - MCFP (CURRENT) USE OF ANTICOAGULANTS Status: Chronic (11) Dementia Code(s): F03.90 - UNSPECIFIED DEMENTIA WITHOUT BEHAVIORAL DISTURBANCE Status: Chronic (12) Glaucoma Code(s): H40.9 - UNSPECIFIED GLAUCOMA Status: Chronic (13) Gout Code(s): M10.9 - GOUT, UNSPECIFIED Status: Chronic (14) Hypertension Code(s): I10 - ESSENTIAL (PRIMARY) HYPERTENSION Status: Chronic (15) Oropharyngeal dysphagia Code(s): R13.12 - DYSPHAGIA, OROPHARYNGEAL PHASE Status: Chronic - Plan cont current plan of care, continue antibiotics, respiratory therapy * medication reviewed as below * symptomatic treatment * supportive care * continue IV antibiotics * repeat labs tomorrow. Review of Systems - Review of Systems Other: not reliable due to dementia - Medications/Allergies Allergies/Adverse Reactions: Allergies Allergy/AdvReac Type Severity Reaction Status Date / Time doxycycline Allergy Verified 11/10/16 15:38 Penicillins Allergy Verified 11/10/16 15:38 Sulfa (Sulfonamide Allergy Verified 11/10/16 15:38 Antibiotics) Medications: Current Medications Acetaminophen (Tylenol) 650 mg PO Q4H PRN PRN Reason: Headache/Fever/Mild Pain (1-3) Albuterol/Ipratropium (Duoneb) 3 ml NEB [id number] [facility] Last Admin: 11/21/18 07:50 Dose: 3 ml Allopurinol (Zyloprim) 300 mg PO DAILY [facility] Amlodipine Besylate (Norvasc) 10 mg PO DAILY [facility] Artificial Tears (Tears Naturale) 2 drop EA EYE PRN PRN PRN Reason: Dry Eyes Aspirin (Ecotrin) 81 mg PO DAILY [facility] Last Admin: 11/21/18 08:18 Dose: 81 mg Atorvastatin Calcium (Lipitor) 40 mg PO HS [facility] Last Admin: 11/20/18 20:33 Dose: 40 mg Bisacodyl (Dulcolax) 10 mg MD DAILYPRN PRN PRN Reason: Constipation Bisacodyl (Dulcolax) 10 mg PO DAILYPRN PRN PRN Reason: Constipation [facility] ([facility]) [facility] Last Admin: 11/21/18 08:18 Dose: 6.25 mg Citalopram Hydrobromide (Celexa) 10 mg PO DAILY [facility] Divalproex Sodium (Depakote Sprinkle) 125 mg PO BID [facility] Docusate Sodium (Colace) 100 mg PO DAILY [facility] Famotidine (Pepcid) 20 mg PO DAILY [facility] Last Admin: 11/20/18 10:03 Dose: Not Given Gabapentin (Neurontin) 800 mg PO BID [facility] Guaifenesin (Robitussin Sf) 200 mg PO Q4H PRN PRN Reason: Cough Ascorbic Acid 1,500 mg/ Sodium (Chloride) 53 mls @ 100 mls/hr IVPB Q6HR [facility] Stop: 11/22/18 12:01 Last Admin: 11/21/18 05:36 Dose: 53 mls Thiamine HCl 200 mg/ Sodium (Chloride) 52 mls @ 100 mls/hr IVPB Q12HR [facility] Stop: 11/22/18 21:01 Last Admin: 11/21/18 08:20 Dose: 52 mls Levofloxacin 750 mg/ Device 150 mls @ 100 mls/hr IVPB 0900 [facility] Cefepime HCl 2 gm/ Sodium (Chloride) 100 mls @ 200 mls/hr IVPB 1000,2200 [facility] Lisinopril (Zestril) 5 mg PO BID [facility] Last Admin: 11/21/18 08:18 Dose: 5 mg Loratadine (Claritin) 10 mg PO DAILYPRN PRN PRN Reason: Sinus Symptoms Mineral Oil/White Petrolatum (Eucerin Cream) 0 gm TOP BIDPRN PRN PRN Reason: Dry Skin Multivitamins (Theragran) 1 tab PO DAILY [facility] Ondansetron HCl (Zofran Odt) 4 mg SL Q6H PRN PRN Reason: Nausea/Vomiting Ondansetron HCl (Zofran) 4 mg IVP Q6H PRN PRN Reason: Nausea/Vomiting Polyethylene Glycol (Miralax) 17 gm PO DAILY [facility] Senna/Docusate Sodium (Senokot S) 2 tab PO BID PRN PRN Reason: Constipation Sodium Chloride ([place] Nasal [place] 0.65%) 0 ml EA NARE QIDPRN PRN PRN Reason: Nasal Congestion Sterile Water (Water For Injection) 10 ml FS PRN PRN PRN Reason: DILUTENT Throat Lozenges (Cepastat Lozenges) 1 mel PO Q2H PRN PRN Reason: Sore Throat Trazodone HCl (Desyrel) 50 mg PO HS [facility] Warfarin Sodium (Coumadin) 2.5 mg PO We@1700 [facility] Warfarin Sodium (Coumadin) 5 mg PO SuMoTuThFrSa@1700 [facility] Ziprasidone (Geodon) 10 mg IM Q8HR PRN PRN Reason: Agitation Last Admin: 11/20/18 00:49 Dose: 10 mg
--- NOTE | 2018-11-21 10:59 | PDOC.CTH ---
Cardiology Progress Note - Subjective no overnight events. Patient still confused. - Objective Vital Signs Temp Pulse Resp BP BP Pulse Ox 11/21/18 10:27 76 137/61 11/21/18 08:18 85 174/75 H 11/21/18 07:55 97.8 F 85 20 174/75 H 94 L 11/21/18 07:53 94 L 11/21/18 07:50 82 12 11/21/18 05:16 166/71 H 11/21/18 04:00 98.9 F 88 16 182/79 H 95 11/21/18 00:52 91 16 94 L 11/21/18 00:00 99.4 F 87 20 143/66 H 94 L Admit Weight 3.231 oz Weight 200 lb 9 oz 11/20/18 11/21/18 11/22/18 06:59 06:59 06:59 Intake Total 3337.0 1250 Output Total 5065 1350 Balance -1728.0 -100 - Physical Examination General/Neuro: other: (alert and awake) Neck: no JVD present Lungs: CTA Heart: RRR Abdomen: NT/ND - Telemetry Telemetry Rhythm: SR - Labs Result Diagrams: 11/20/18 05:06 11/21/18 05:26 Troponin/CKMB CK-MB (CK-2) 2.9 ng/mL (0-6.6) 11/18/18 03:43 Troponin I 4.331 ng/mL (< 0.028) H* 11/18/18 10:40 - Assessment/Plan 1. s/p NSTEMI 2. PNA 3. TATE 4. HTN 5. Sepsis 6. hallucinations BP up, but patient refusing meds at times and confused. Continue conservative therapy.
[2018-11-21] MEDS: Cefepime 2 GM in Sodium Chloride 0.9% 100 ML IVPB SCH ×2 (12:22→21:41)
[2018-11-21 12:54] LABS: Hemoglobin 12.5 g/dL (14.0-18.0); Platelet Count 157 thou/uL (130-400)
[2018-11-21] MEDS ORDERED: Warfarin Sodium 2.5 MG TAB PO SCH (17:00)
[2018-11-21] MEDS ORDERED: Warfarin Sodium 5 MG TAB PO SCH (17:00)
[2018-11-21] MEDS: Atorvastatin Calcium 40 MG TAB PO SCH (21:26)
[2018-11-21] MEDS: traZODone HCl 50 MG TAB PO SCH (21:26)
[2018-11-22 05:31] LABS: #Basophils 0.1 thou/uL (0.0-0.2); #Eosinphils 0.6 thou/uL (0.0-0.7); #Lymphocytes 1.9 thou/uL (1.20-3.40); #Monocytes 0.9 thou/uL (0.11-0.59); #Neutrophils 5.5 thou/uL (1.40-6.50); %Basophils 0.8 % (0.0-1.0); %Eosinophils 6.5 % (0.0-10.0); %Lymphocytes 21.6 % (21.0-51.0); %Monocytes 9.8 % (0.0-10.0); %Neutrophils 61.4 % (42.0-75.0); Hemoglobin 11.8 g/dL (14.0-18.0); INR-International Normal Ratio 3.1; Mean Corpuscular HGB CONC 33.3 g/dL (32.0-36.0); Mean Corpuscular Hemoglobin 30.9 pg (27.0-31.0); Mean Corpuscular Volume 92.7 fL (78.0-98.0); Mean Platelet Volume 10.1 fL (7.4-10.4); Platelet Count 164 thou/uL (130-400); RBC Distribution Width 13.7 % (11.5-14.5); Red Blood Cell (RBC) Count 3.81 mill/uL (4.70-6.10)
[2018-11-22 05:51] LABS: ALT (SGPT) 15 U/L (8-55); AST (SGOT) 21 U/L (5-34); Alkaline Phosphatase 63 U/L (40-150); Anion Gap 13 mmol/L (10-20); BUN (Urea Nitrogen) 18 mg/dL (8.4-25.7); Bilirubin, Total 0.8 mg/dL (0.2-1.2); Calc. Creatinine Clearance 65 mL/min (70-130); Calcium 8.4 mg/dL (7.8-10.44); Carbon Dioxide 25 mmol/L (23-31); Chloride 107 mmol/L (98-107); Estimated GFR-MDRD 65; Globulin 2.9 g/dL (2.4-3.5); Glucose 94 mg/dL (83-110); Potassium 3.4 mmol/L (3.5-5.1); Protein, Total 5.9 g/dL (5.8-8.1); Sodium 142 mmol/L (136-145)
[2018-11-22] MEDS: Amlodipine 10 MG TAB PO SCH (09:05)
[2018-11-22] MEDS: Divalproex Sodium 125 mg Sprinkle Capsule PO SCH ×2 (09:05→21:15)
[2018-11-22] MEDS: Multivit, Therapeutic 1 TAB PO SCH (09:07)
[2018-11-22] MEDS: Gabapentin 400 MG CAP PO SCH ×2 (09:07→21:15)
[2018-11-22] MEDS: Famotidine 20 MG TAB PO SCH (09:07)
[2018-11-22] MEDS: Allopurinol 300 MG TAB PO SCH (09:07)
[2018-11-22] MEDS: Citalopram 10 MG TAB PO SCH (09:15)
[2018-11-22] MEDS: Docusate 100 MG CAP PO SCH (09:15)
[2018-11-22] MEDS: Aspirin 81 mg Enteric Coated Tablet PO SCH (09:15)
[2018-11-22] MEDS: Carvedilol 6.25 MG TAB PO SCH ×2 (09:15→16:25)
[2018-11-22] MEDS: Polyethylene Glycol 3350 17 GM Packet PO SCH (09:16)
[2018-11-22] MEDS: Cefepime 2 GM in Sodium Chloride 0.9% 100 ML IVPB SCH ×2 (09:17→21:16)
--- NOTE | 2018-11-22 09:27 | PRG ---
DATE OF SERVICE: 11/22/2018 SUBJECTIVE: The patient is doing reasonably well, had no complaints. OBJECTIVE: VITAL SIGNS: Temperature 98.4, pulse 67, blood pressure 158/70, O2 saturation 93%. HEENT: Unremarkable. NECK: No adenopathy, JVD, or bruits. LUNGS: Clear anteriorly. CARDIAC: S1 and S2, regular. ABDOMEN: Soft. EXTREMITIES: No edema. ASSESSMENT: 1. Acute hypoxic respiratory failure. 2. Aspiration pneumonia. 3. Dementia. PLAN: Issues are mainly rehabilitative at this point. I believe the patient can be switched over to oral antibiotics at any time. Pulmonary will continue to follow intermittently during the patient's hospitalization. Job ID: [id number]
[2018-11-22] MEDS: Lisinopril 5 MG TAB PO SCH ×2 (09:42→21:15)
--- NOTE | 2018-11-22 11:25 | PDOC.PN ---
- Subjective Encounter Start Date: 11/22/18 Encounter Start Time: 07:40 today pt is less confused, he is taking his meds and eating bedside Patient seen and examined. No new complaints. No overnight events - Objective Resuscitation Status - Order Detail: 11/18/18 10:04 Resuscitation Status Routine Resuscitation Status: PRTL: Cardiac only Discussed with: SOREN Reviewed: Yes Vital Signs & Weight: Vital Signs (12 hours) Temp Pulse Resp BP BP Pulse Ox 11/22/18 09:42 78 156/71 H 11/22/18 09:05 78 156/71 H 11/22/18 06:23 94 L 11/22/18 06:20 78 12 11/22/18 04:00 98.4 F 67 20 158/70 H 92 L 11/22/18 00:50 65 12 91 L Weight Admit Weight 3.231 oz Weight 202 lb 4 oz Most Recent Monitor Data Heart Rate from ECG 84 NIBP 155/117 NIBP BP-Mean 129 Respiration from ECG 17 SpO2 95 I&O: 11/21/18 11/22/18 11/23/18 06:59 06:59 06:59 Intake Total 1250 965 Output Total 1350 1050 Balance -100 -85 Result Diagrams: 11/22/18 04:58 11/22/18 04:58 Additional Labs: Accuchecks 11/21/18 16:53 POC Glucose 111 H EKG Reviewed by me: Yes Phys Exam - Physical Examination Constitutional: NAD HEENT: PERRLA, moist MMs, sclera anicteric Neck: no JVD, supple Respiratory: no wheezing, no rales, no rhonchi Cardiovascular: RRR, no significant murmur, no rub Gastrointestinal: soft, non-tender, no distention Musculoskeletal: no edema, pulses present Lymphatic: no nodes Psychiatric: normal affect Skin: no rash, normal turgor Dx/Plan (1) Acute kidney failure Status: Resolved (2) Aspiration pneumonia Code(s): J69.0 - PNEUMONITIS DUE TO INHALATION OF FOOD AND VOMIT Status: Acute (3) Moderate mitral regurgitation Code(s): I34.0 - NONRHEUMATIC MITRAL (VALVE) INSUFFICIENCY Status: Chronic (4) Moderate tricuspid regurgitation Code(s): I07.1 - RHEUMATIC TRICUSPID INSUFFICIENCY Status: Chronic (5) NSTEMI (non-ST elevated myocardial infarction) Code(s): I21.4 - NON-ST ELEVATION (NSTEMI) MYOCARDIAL INFARCTION Status: Acute (6) Septic shock Code(s): A41.9 - SEPSIS, UNSPECIFIED ORGANISM; R65.21 - SEVERE SEPSIS WITH SEPTIC SHOCK Status: Resolved (7) Systolic dysfunction Code(s): I51.9 - HEART DISEASE, UNSPECIFIED Status: Acute (8) UTI (urinary tract infection) Status: Acute (9) Anxiety and depression Code(s): F41.9 - ANXIETY DISORDER, UNSPECIFIED; F32.9 - MAJOR DEPRESSIVE DISORDER, SINGLE EPISODE, UNSPECIFIED Status: Chronic (10) Chronic anticoagulation Code(s): Z79.01 - [employer] (CURRENT) USE OF ANTICOAGULANTS Status: Chronic (11) Dementia Code(s): F03.90 - UNSPECIFIED DEMENTIA WITHOUT BEHAVIORAL DISTURBANCE Status: Chronic (12) Glaucoma Code(s): H40.9 - UNSPECIFIED GLAUCOMA Status: Chronic (13) Gout Code(s): M10.9 - GOUT, UNSPECIFIED Status: Chronic (14) Hypertension Code(s): I10 - ESSENTIAL (PRIMARY) HYPERTENSION Status: Chronic (15) Oropharyngeal dysphagia Code(s): R13.12 - DYSPHAGIA, OROPHARYNGEAL PHASE Status: Chronic - Plan cont current plan of care, plan discussed w/ family, continue antibiotics * continue IV antibiotics today * tomorrow will plan for discharge to SNU on oral antibiotics * discussed with bedside * medication reviewed as below * symptomatic treatment. * DC tele * transfer to medical Review of Systems - Review of Systems Other: not reliable due to advanced dementia - Medications/Allergies Allergies/Adverse Reactions: Allergies Allergy/AdvReac Type Severity Reaction Status Date / Time doxycycline Allergy Verified 11/10/16 15:38 Penicillins Allergy Verified 11/10/16 15:38 Sulfa (Sulfonamide Allergy Verified 11/10/16 15:38 Antibiotics) Medications: Current Medications Acetaminophen (Tylenol) 650 mg PO Q4H PRN PRN Reason: Headache/Fever/Mild Pain (1-3) Albuterol/Ipratropium (Duoneb) 3 ml NEB F4FT-PO DAVID Last Admin: 11/22/18 06:20 Dose: 3 ml Allopurinol (Zyloprim) 300 mg PO DAILY DAVID Last Admin: 11/22/18 09:07 Dose: 300 mg Amlodipine Besylate (Norvasc) 10 mg PO DAILY [facility] Last Admin: 11/22/18 09:05 Dose: 10 mg Artificial Tears (Tears Naturale) 2 drop EA EYE PRN PRN PRN Reason: Dry Eyes Aspirin (Ecotrin) 81 mg PO DAILY [facility] Last Admin: 11/22/18 09:15 Dose: 81 mg Atorvastatin Calcium (Lipitor) 40 mg PO HS [facility] Last Admin: 11/21/18 21:26 Dose: 40 mg Bisacodyl (Dulcolax) 10 mg SD DAILYPRN PRN PRN Reason: Constipation Bisacodyl (Dulcolax) 10 mg PO DAILYPRN PRN PRN Reason: Constipation Carvedilol (Coreg) 6.25 mg PO BID-[facility] Last Admin: 11/22/18 09:15 Dose: 6.25 mg Citalopram Hydrobromide (Celexa) 10 mg PO DAILY [facility] Last Admin: 11/22/18 09:15 Dose: 10 mg Divalproex Sodium (Depakote Sprinkle) 125 mg PO BID [facility] Last Admin: 11/22/18 09:05 Dose: 125 mg Docusate Sodium (Colace) 100 mg PO DAILY [facility] Last Admin: 11/22/18 09:15 Dose: Not Given Famotidine (Pepcid) 20 mg PO DAILY [facility] Last Admin: 11/22/18 09:07 Dose: 20 mg Gabapentin (Neurontin) 800 mg PO BID [facility] Last Admin: 11/22/18 09:07 Dose: 800 mg Guaifenesin (Robitussin Sf) 200 mg PO Q4H PRN PRN Reason: Cough Ascorbic Acid 1,500 mg/ Sodium (Chloride) 53 mls @ 100 mls/hr IVPB Q6HR [facility] Stop: 11/22/18 12:01 Last Admin: 11/22/18 05:26 Dose: 53 mls Thiamine HCl 200 mg/ Sodium (Chloride) 52 mls @ 100 mls/hr IVPB Q12HR [facility] Stop: 11/22/18 21:01 Last Admin: 11/22/18 09:17 Dose: 52 mls Levofloxacin 750 mg/ Device 150 mls @ 100 mls/hr IVPB 0900 [facility] Last Admin: 11/22/18 09:16 Dose: 150 mls Cefepime HCl 2 gm/ Sodium (Chloride) 100 mls @ 200 mls/hr IVPB 1000,2200 [facility] Last Admin: 11/22/18 09:17 Dose: 100 mls Lisinopril (Zestril) 10 mg PO BID [facility] Last Admin: 11/22/18 09:42 Dose: 10 mg Loratadine (Claritin) 10 mg PO DAILYPRN PRN PRN Reason: Sinus Symptoms Mineral Oil/White Petrolatum (Eucerin Cream) 0 gm TOP BIDPRN PRN PRN Reason: Dry Skin Multivitamins (Theragran) 1 tab PO DAILY [facility] Last Admin: 11/22/18 09:07 Dose: 1 tab Ondansetron HCl (Zofran Odt) 4 mg SL Q6H PRN PRN Reason: Nausea/Vomiting Ondansetron HCl (Zofran) 4 mg IVP Q6H PRN PRN Reason: Nausea/Vomiting Polyethylene Glycol (Miralax) 17 gm PO DAILY [facility] Last Admin: 11/22/18 09:16 Dose: Not Given Senna/Docusate Sodium (Senokot S) 2 tab PO BID PRN PRN Reason: Constipation Sodium Chloride ([place] Nasal [place] 0.65%) 0 ml EA NARE QIDPRN PRN PRN Reason: Nasal Congestion Sterile Water (Water For Injection) 10 ml FS PRN PRN PRN Reason: DILUTENT Throat Lozenges (Cepastat Lozenges) 1 mel PO Q2H PRN PRN Reason: Sore Throat Trazodone HCl (Desyrel) 50 mg PO HS [facility] Last Admin: 11/21/18 21:26 Dose: 50 mg Warfarin Sodium (Coumadin) 2.5 mg PO 1700 [facility] Last Admin: 11/21/18 18:29 Dose: 2.5 mg Ziprasidone (Geodon) 10 mg IM Q8HR PRN PRN Reason: Agitation Last Admin: 11/20/18 00:49 Dose: 10 mg
[2018-11-22] MEDS ORDERED: Warfarin Sodium 2.5 MG TAB PO SCH (17:00)
[2018-11-22] MEDS: traZODone HCl 50 MG TAB PO SCH (21:15)
[2018-11-22] MEDS: Atorvastatin Calcium 40 MG TAB PO SCH (21:15)
[2018-11-23 07:39] LABS: INR-International Normal Ratio 3.4; Prothrombin Time 33.9 SEC (12.0-14.7)
--- NOTE | 2018-11-23 09:28 | PRG ---
DATE OF SERVICE: 11/23/2018 SUBJECTIVE: He is in better spirits, had no acute complaints. OBJECTIVE: VITAL SIGNS: Temperature 97.7, pulse 79, respirations 16, O2 saturation 96% on 0.5 L, and blood pressure 117/57. HEENT: Unremarkable. NECK: No JVD. CHEST: Clear anteriorly. CARDIAC: S1, S2. Regular. ABDOMEN: Soft. EXTREMITIES: No edema. ASSESSMENT: 1. Acute hypoxic respiratory failure, which has resolved. 2. Aspiration pneumonia. 3. Dementia. 4. Oropharyngeal dysphagia. PLAN: The patient has progressed to the point where I think he can go to rehab. In my opinion, his antibiotics can be changed to oral therapy. There was nothing further to add from Pulmonary standpoint. We will sign off the case. Job ID: [id number]
[2018-11-23] MEDS: Amlodipine 10 MG TAB PO SCH (10:18)
[2018-11-23] MEDS: Gabapentin 400 MG CAP PO SCH (10:18)
[2018-11-23] MEDS: Docusate 100 MG CAP PO SCH (10:19)
[2018-11-23] MEDS: Lisinopril 5 MG TAB PO SCH (10:19)
[2018-11-23] MEDS: Divalproex Sodium 125 mg Sprinkle Capsule PO SCH (10:19)
[2018-11-23] MEDS: Carvedilol 6.25 MG TAB PO SCH (10:19)
[2018-11-23] MEDS: Citalopram 10 MG TAB PO SCH (10:20)
[2018-11-23] MEDS: Polyethylene Glycol 3350 17 GM Packet PO SCH (10:20)
[2018-11-23] MEDS: Allopurinol 300 MG TAB PO SCH (10:20)
[2018-11-23] MEDS: Aspirin 81 mg Enteric Coated Tablet PO SCH (10:20)
[2018-11-23] MEDS: Cefepime 2 GM in Sodium Chloride 0.9% 100 ML IVPB SCH (10:20)
[2018-11-23] MEDS: Famotidine 20 MG TAB PO SCH (10:20)
[2018-11-23] MEDS: Multivit, Therapeutic 1 TAB PO SCH (10:20)
--- NOTE | 2018-11-23 12:22 | DIS ---
DATE OF ADMISSION: 11/18/2018 DATE OF DISCHARGE: 11/23/2018 PRIMARY CARE PHYSICIAN: Dr. Lilly. DISCHARGE DISPOSITION: Magnified Assisted. PRIMARY DISCHARGE DIAGNOSES: Aspiration pneumonia, septic shock, acute kidney failure, [id number] NC type 2 due to demand ischemia, urinary tract infection, systolic dysfunction. SECONDARY DISCHARGE DIAGNOSES: Oropharyngeal dysphagia, moderate tricuspid regurgitation, moderate mitral regurgitation, hypertension, gout, glaucoma, dementia, chronic anticoagulation, anxiety and depression, physical deconditioning. PRIMARY PROCEDURE/OPERATION: Central line placement. RADIOLOGICAL INVESTIGATION: Chest x-ray on admission showed persistent consolidation of the left lower lobe. CT brain negative for any acute intracranial process. Echocardiography showed EF 40%, moderate tricuspid regurgitation. SIGNIFICANT LABORATORY DATA: WBC 9.0, hemoglobin 11.8, platelet 164. INR 3.4. Sodium 142, potassium 3.4, BUN 18, creatinine 1.08, calcium 8.4. LFT normal. Urinalysis suggestive of UTI. Blood culture and urine culture negative. DISCHARGE MEDICATIONS: 1. Allopurinol 300 mg p.o. daily. 2. Norvasc 10 mg daily. 3. Celexa 10 mg daily. 4. Depakote 125 mg p.o. b.i.d. 5. Colace 100 mg daily. 6. Gabapentin 800 mg p.o. b.i.d. 7. Lisinopril 5 mg daily. 8. Theragran one tablet p.o. daily. 9. MiraLAX 17 g p.o. daily. 10. Travatan ophthalmic drops at bedtime. 11. Trazodone 50 mg p.o. at bedtime. 12. Warfarin 2.5 mg and 5 mg as per previous dose to maintain INR 2 to 3. 13. Aspirin 81 mg daily. 14. Lipitor 10 mg p.o. b.i.d. 15. Coreg 6.25 mg p.o. b.i.d. 16. Levaquin 500 mg p.o. daily. CONTRAINDICATION: None. CODE STATUS: CPR only. No intubation. TEST RESULTS PENDING ON DISCHARGE: None. ALLERGIES: DOXYCYCLINE, PENICILLIN, SULFA. DISCHARGE PLAN: Post hospital, the patient will follow up with primary care physician in one week. HOSPITAL COURSE: An 83-year-old male who lives at senior living. The patient was sent from senior living for fever, altered mental status, cough. The patient was having septic shock on admission. He required central line placement. He required Levophed drip. He was admitted in ICU. He also had relatively low temperature, which required Claudia Hugger. The patient required overnight ICU stay and subsequently, he was transferred to telemetry floor. On admission, he was having acute kidney failure, non ST elevation NC type 2. We suspected aspiration pneumonia and UTI as a source of infection. We treated him with cefepime, Levaquin, and vancomycin. On discharge, we changed to levofloxacin. While in the hospital, INR was monitored. Based on INR monitoring daily basis by the time of discharge, the patient's renal function improved. Because of NSTEMI, we did echocardiography, which showed low EF. Cardiology started above-mentioned medication. During this admission, we increased lisinopril as above as well as we restarted Coreg. Statin therapy and aspirin was added. During this hospital course, the patient's code status was changed to CPR only. No intubation as per the patient's . Once patient was stabilized, he was transferred to tele medical floor. We continued above-mentioned treatment while in hospital. The patient significantly improved and he is now up to his baseline. The patient is seen and examined at bedside today. PHYSICAL EXAMINATION: VITAL SIGNS: Currently, temperature 97.7, pulse 79, blood pressure 150/61, saturation 96%. Weight 202 pounds. GENERAL: The patient is alert and oriented. NECK: Supple. No JVD. LUNGS: Clear to auscultation without any rhonchi or rales. CARDIAC: S1, S2. Regular without any murmur. ABDOMEN: Soft and benign. EXTREMITIES: No edema. NEUROLOGIC: Nonfocal examination. REVIEW OF SYSTEMS: Not reliable with the patient because of his advanced dementia. Paperwork for discharge done. DISCHARGE MEDICATIONS: Reconciliation done. Total time spent on discharge day, 31 minutes. Job ID: [id number]
[2018-11-23 14:32] VITALS: BP 115/58; TEMP 98.6
[2018-11-24] MEDS ORDERED: Warfarin Sodium 2.5 MG TAB PO SCH (17:00)
--- NOTE | 2018-11-26 08:10 | PQF ---
[employer] CARMELINA Batres, ROMAN XOCHITLNORMALAURARUTHY [id number] [id number] CLINICAL DOCUMENTATION CLARIFICATION FORM: POST DISCHARGE Addendum to original discharge summary date: ____ Late entry note date: __ Please exercise your independent, professional judgment in responding to the clarification form. Clinical indicators are provided on the bottom of this form for your review Please check appropriate box(s): Conflicting documentation was noted in the Medical Record, please clarify if patient is being treated/monitored for: [ ] NSTEMI [x ] NSTEMI TYPE 2 [ ] DEMAND ISCHEMIA [ ] Other diagnosis [ ] Unable to determine In addition, please specify: Present on Admission (POA): [x ] Yes [ ] No [ ] Unable to determine For continuity of documentation, please document condition throughout progress notes and discharge summary. Thank You. CLINICAL INDICATORS - SIGNS / SYMPTOMS/ LABS NSTEMI- PN 11/19, 11/20, 11/21, 11/22, 11/24 NSTEMI TYPE 2 DUE TO DEMAND ISCHEMIA- H&P, D/S NON Q WAVE OR- CONSULT 11/18 DR. PALMER RISK FACTORS HYPERTENSION- D/S, CONSULT DR. FARR, PN 11/19, 11/20, 11/21, 11/22, 11/24 TREATMENT CARDIAC CONSULT- 11/18 DR. BETTENCOURT (This form is maintained as a part of the permanent medical record) 2014 [employer]. All Rights Reserved [email or web address] [phone] MTDD
--- NOTE | 2018-11-26 08:15 | PQF ---
[employer] Veter[employer] Anatomist [employer] Reports Win[employer] ViewerCARMELINA ADAME, ROMAN RESENDIZ MD [id number] O-[id number] CLINICAL DOCUMENTATION CLARIFICATION FORM: POST DISCHARGE Addendum to original discharge summary date: ____ Late entry note date: __ Please exercise your independent, professional judgment in responding to the clarification form. Clinical indicators are provided on the bottom of this form for your review Please check appropriate box(s): HEART FAILURE: A. TYPE: [ ] Systolic / HFrEF [ ] Diastolic / HFpEF [ x ] Combined Systolic / Diastolic B. ACUITY [ ] Acute [ ] Acute on Chronic [ x ] Chronic [ ] Other diagnosis [ ] Unable to determine In addition, please specify: Present on Admission (POA): [ x ] Yes [ ] No [ ] Unable to determine For continuity of documentation, please document condition throughout progress notes and discharge summary. Thank You. CLINICAL INDICATORS - SIGNS / SYMPTOMS / LABS Ejection Fraction = 40 %- D/S SYSTOLIC DYSFUNCTION- PN 2/, 2/2, 2/3, 2 RISKS: HYPERTENSION- D/S, CONSULT DR. FARR, PN 11/19, 2, 11/21, 11/22, 2 TREATMENTS: ON HOME LISINOPRIL- H&P (This form is maintained as a part of the permanent medical record) [employer] An[id number]. All Rights Reserved [email or web address] [phone] MTDD
--- NOTE | 2018-11-27 15:34 | EKG ---
Test Reason : Blood Pressure : / mmHG Vent. Rate : 090 BPM Atrial Rate : 090 BPM P-R Int : 216 ms QRS Dur : 086 ms QT Int : 378 ms P-R-T Axes : 071 -20 049 degrees QTc Int : 462 ms Sinus rhythm with 1st degree A-V block with occasional Premature ventricular complexes Moderate voltage criteria for LVH, may be normal variant Inferior infarct , age undetermined Abnormal ECG Confirmed by MORENA Ga, KARY ([id number]), science editor JOVON LAMB ([id number]) on 11/27/2018 3:33:58 PM Referred By: Confirmed By:KARY BERG M.D.
== END 2018-11-23 15:12 | DRG 871 ==
LOC: ERS 03:24 → ERHOLD 06:29 → CCU 10:27 → 2NO 11-19 11:46 → T4-B 11-22 17:10
PROVIDERS: ADMIT Hospitalist; ATTEND Hospitalist
PROC: 3E033XZ Introduction of Vasopressor into Peripheral Vein, Percutaneous Approach (ICD-10-PCS; principal; 2018-11-18)
PROC: 06HM33Z Insertion of Infusion Device into Right Femoral Vein, Percutaneous Approach (ICD-10-PCS; 2018-11-18)
DX: A41.9 Sepsis, unspecified organism (principal); R65.21 Severe sepsis with septic shock; J69.0 Pneumonitis due to inhalation of food and vomit; J96.01 Acute respiratory failure with hypoxia; I21.A1 Myocardial infarction type 2; N17.9 Acute kidney failure, unspecified; N39.0 Urinary tract infection, site not specified; G93.40 Encephalopathy, unspecified; I50.42 Chronic combined systolic (congestive) and diastolic (congestive) heart failure; Z66 Do not resuscitate; G30.9 Alzheimer's disease, unspecified; I11.0 Hypertensive heart disease with heart failure; F02.80 Dementia in other diseases classified elsewhere, unspecified severity, without behavioral disturbance, psychotic disturbance, mood disturbance, and anxiety; M19.90 Unspecified osteoarthritis, unspecified site; R13.12 Dysphagia, oropharyngeal phase; I34.0 Nonrheumatic mitral (valve) insufficiency; E86.0 Dehydration; M10.9 Gout, unspecified; H40.9 Unspecified glaucoma; I73.9 Peripheral vascular disease, unspecified; N40.0 Benign prostatic hyperplasia without lower urinary tract symptoms; F41.9 Anxiety disorder, unspecified; F32.9 Major depressive disorder, single episode, unspecified; Z88.0 Allergy status to penicillin; Z88.2 Allergy status to sulfonamides; Z79.01 Long term (current) use of anticoagulants; Z86.73 Personal history of transient ischemic attack (TIA), and cerebral infarction without residual deficits; Z85.89 Personal history of malignant neoplasm of other organs and systems
CPT/HCPCS: 36415; 36416; 36556; 51702; 70450; 71045; 80048; 80053; 80202; 81003; 81015; 82553; 83605; 83690; 84443; 84484; 85014; 85018; 85025; 85049; 85610; 85730; 87040; 87086; 93005; 93306; 94640; 96365; 96366; 96367; A4216; J0692; J1940; J1956; J2060; J3370; J3411; J3486; J7050; J7620; S0028

== ENCOUNTER 2018-12-12 10:07 | Inpatient (IN) | payer MEDICARE, MEDICAID ==
[2018-12-12 11:01] LABS: #Basophils 0.1 thou/uL (0.0-0.2); #Eosinphils 0.2 thou/uL (0.0-0.7); #Lymphocytes 1.3 thou/uL (1.20-3.40); #Monocytes 1.8 thou/uL (0.11-0.59); #Neutrophils 13.7 thou/uL (1.40-6.50); %Basophils 0.4 % (0.0-1.0); %Eosinophils 1.4 % (0.0-10.0); %Lymphocytes 7.7 % (21.0-51.0); %Monocytes 10.7 % (0.0-10.0); %Neutrophils 79.8 % (42.0-75.0); Hemoglobin 11.9 g/dL (14.0-18.0); Mean Corpuscular HGB CONC 31.7 g/dL (32.0-36.0); Mean Corpuscular Hemoglobin 30.1 pg (27.0-31.0); Mean Corpuscular Volume 95.1 fL (78.0-98.0); Mean Platelet Volume 9.8 fL (7.4-10.4); Platelet Count 175 thou/uL (130-400); RBC Distribution Width 13.8 % (11.5-14.5); Red Blood Cell (RBC) Count 3.96 mill/uL (4.70-6.10); White Blood Cell (WBC) Count 17.2 thou/uL (4.8-10.8)
[2018-12-12 11:23] LABS: ALT (SGPT) 8 U/L (8-55); AST (SGOT) 17 U/L (5-34); Albumin 3.3 g/dL (3.4-4.8); Alkaline Phosphatase 105 U/L (40-150); Anion Gap 13 mmol/L (10-20); BUN (Urea Nitrogen) 20 mg/dL (8.4-25.7); Bilirubin, Total 0.7 mg/dL (0.2-1.2); CK (CPK) 34 U/L (30-200); Calc. Creatinine Clearance 0 mL/min (70-130); Calcium 8.8 mg/dL (7.8-10.44); Carbon Dioxide 27 mmol/L (23-31); Chloride 107 mmol/L (98-107); Estimated GFR-MDRD 49; Globulin 3.5 g/dL (2.4-3.5); Glucose 104 mg/dL (83-110); Lipase 22 U/L (8-78); Potassium 4.6 mmol/L (3.5-5.1); Protein, Total 6.8 g/dL (5.8-8.1); Sodium 142 mmol/L (136-145)
[2018-12-12 11:48] LABS: CKMB 1.2 ng/mL (0-6.6)
[2018-12-12 12:20] LABS: Bilirubin Negative (Negative); Blood, Urine Large (Negative); Clarity CLOUDY (Clear); Glucose, Urine (Dipstick) Negative (Negative); Leukocyte Large (Negative); Nitrite Positive (Negative); Protein, Urine (Dipstick) 100 mg/dL (Neg-Trace); Specific Gravity, Urine 1.022 (1.002-1.036)
[2018-12-12 12:23] LABS: Bacteria/HPF 2+ HPF (None Seen); Hyaline Casts/LPF 0-3 HYALINE CAST LPF (0-3 Hyaline); Pathc Cast-AUWi Flag 0.62 (0-2.49); RBC/HPF GREATER THAN 50-TNTC HPF (0-3); Squamous Epithelial None Seen HPF (0-3)
[2018-12-12] MEDS ORDERED: cefTRIAXone\\ROCEPHIN 2 GM VIAL ONE (12:47)
[2018-12-12] MEDS ORDERED: Sodium Chloride 0.9% 100 ML ONE (12:48)
--- NOTE | 2018-12-12 14:05 | RAD ---
FRONTAL RADIOGRAPH CHEST: DATE: 12/12/2018. COMPARISON: 11/18/2018. HISTORY: Altered mental status. FINDINGS: There is marked enlargement of the cardiac silhouette and elevation of the left hemidiaphragm, stable . Calcified granuloma noted in right lung base and calcified mediastinal lymph node again noted on t he right. Elevation of left hemidiaphragm limits assessment of the left base. No pneumothorax, loba r consolidation, or alveolar edema. IMPRESSION: Stable appearance of the chest. The left lung base is not well assessed secondary to elevation of th e left hemidiaphragm. POS: [facility]
[2018-12-12 14:09] LABS: Troponin I 0.048 ng/mL (< 0.028)
[2018-12-12] MEDS ORDERED: Senokot S 8.6-50 MG TAB PO PRN (14:25)
[2018-12-12] MEDS ORDERED: Guaifenesin DM 100-10/5 ML UDCUP PO PRN (14:25)
[2018-12-12] MEDS ORDERED: Ondansetron PF 4 MG/2 ML Vial IVP PRN (14:25)
[2018-12-12 15:12] LABS: INR-International Normal Ratio 2.8; Prothrombin Time 29.2 SEC (12.0-14.7)
--- NOTE | 2018-12-12 15:53 | HP ---
REASON FOR ADMISSION: Urinary tract infection, acute encephalopathy. HISTORY OF PRESENTING ILLNESS: The patient was sent from [facility] for increasing confusion, not eating well. The at bedside who saw him yesterday tells me that the patient was confused a bit and he was also having hallucinations with him telling her that people are chasing him. He was sleeping the whole day yesterday. He did not eat much and was not himself per . She was expecting a call anytime from yesterday that he might be transferred to the hospital. This happened this morning and she arrived with the patient here. The patient has had history of prior radiation for throat cancer and he was told that his throat is scarred up and cervical spine was also involved with quadriparesis. He has been bed bound from 2009 onwards. The patient was recently hospitalized and discharged on 11/23/2018 for pneumonia. The patient had a fever of 99.5 degrees rectal on arrival here. 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 Peripheral vascular disease, hypertension, glaucoma, cataract surgery, history of TIAs, benign enlargement of prostate, osteoarthritis, prior history of having feeding PEG tube placed and removed in 2018, hemorrhoid surgery, back surgery, prior history of tracheostomy with reversal, anxiety disorder, depression, seizure disorder, trigeminal neuralgia, history of diverticulitis. CURRENT MEDICATIONS: From shelter record, the patient is on, 1. Citalopram 10 mg daily. 2. Trazodone 25 mg at bedtime every other day. 3. Gabapentin 800 mg twice daily. 4. Tylenol p.r.n. 5. Albuterol nebulization q.4 hourly p.r.n. 6. Norvasc 10 mg daily. 7. Travatan eye drops at bedtime to both eyes. 8. Lisinopril 5 mg daily. 9. Multivitamin one tablet once daily. 10. Depakote 125 mg daily. 11. Allopurinol 300 mg daily. 12. Colace 100 mg daily. ALLERGIES: ALLERGIC TO DOXYCYCLINE, PENICILLIN, AND SULFA. PERSONAL HISTORY: Does not abuse alcohol or drugs. No history of smoking. He is a resident of [facility]. At baseline, the patient mobilizes himself to a wheelchair. He has been bed bound from 2009. He is able to dial his telephone to call his and normally converses well if he is on a good day. FAMILY HISTORY: Mother at the age of 85, father at the age of 76. Had three brothers, who were all diseased at 87 years, 76 years, and the third brother in his 70s. Has a living sister, who has history of leukemia, back pain which is chronic, and coronary artery disease, and has been wearing a monitor at present for possible arrhythmias. CODE STATUS: DNAR. This was discussed with the patient and at bedside. REVIEW OF SYSTEMS: CONSTITUTIONAL: Negative for weight loss or gain, ability to conduct usual activities. SKIN: Negative for rash, itching. EYES: Negative for double vision, pain. ENT/MOUTH: Negative for nose bleeding, neck stiffness, pain, tenderness. CARDIOVASCULAR: Negative for palpitations, dyspnea on exertion, orthopnea. RESPIRATORY: Negative for shortness of breath, wheezing, cough, hemoptysis, fever or night sweats. GASTROINTESTINAL: Negative for poor appetite, abdominal pain, heartburn, nausea , vomiting, constipation, or diarrhea. GENITOURINARY: Negative for urgency, frequency, dysuria, nocturia. MUSCULOSKELETAL: Negative for pain, swelling. NEUROLOGIC/PSYCHIATRIC: Negative for anxiety, depression. ALLERGY/IMMUNOLOGIC: Negative for skin rash, bleeding tendency. PHYSICAL EXAMINATION: GENERAL: The patient is an 83-year-old male, who is currently not in any acute distress. VITAL SIGNS: Blood pressure 146/60, pulse 82 per minute, respiratory rate 20 per minute, temperature 99 degrees Fahrenheit, saturating 95% on 3 L nasal cannula. NECK: Supple. No elevated JVD. HEENT: Eyes; extraocular muscles intact. Pupils reacting to light. Oral cavity; mucous membranes are dry. No exudates or congestion. CARDIOVASCULAR SYSTEM: S1 and S2 heard. Regular rhythm. RESPIRATORY SYSTEM: Air entry 1+ bilateral. Scattered rhonchi plus no rales or wheezes. ABDOMEN: Soft. Bowel sounds heard. No tenderness, rigidity, or guarding. EXTREMITIES: The patient has chronic nonpitting edema of both lower extremities worse on the left lower extremity. The at bedside also mentions that his left lower extremity is usually bigger than right. She does not know the reason for the same. No calf tenderness. Peripheral pulses are barely palpable in lower extremities and is 2+ in upper extremities. No peripheral gangrene noted. CENTRAL NERVOUS SYSTEM: No gross focal deficits noted. The patient is able to move his upper extremities and has good human resource internship on both hand and fingers. He barely moves his lower extremities, but mostly strength is 0/5 in both lower extremities. PSYCHIATRIC SYSTEM: The patient does not have any obvious hallucinations or delusions at present. He responds well to verbal questions at present. LABORATORY DATA: White count of 17, H and H of 11 and 37, platelet count is 175 with 79% neutrophils, MCV is 95. Electrolytes stable. BUN 20, creatinine 1.3. Liver enzymes within normal limits. Albumin is 3.3. Troponin I 0.04. CK-MB 1.2. BNP is 1517. UA shows signs of UTI with positive nitrite, large leukocyte esterase, greater than 50 wbc's, and 2+ bacteria. Influenza A and B antigens are negative. Chest x-ray done shows no obvious infiltrate. EKG shows normal sinus rhythm at 81 beats per minute. CLINICAL IMPRESSION AND PLAN: The patient will be admitted to medical floor for acute encephalopathy, urinary tract infection, dehydration. We will gently hydrate him with D5 normal saline at 60 mL/h for a total of 1 L. Urine and blood cultures have been obtained in the ER. He will be on ceftriaxone 1 g daily. The patient has received antibiotics recently for pneumonia. We will keep a close eye on his bowel moments to make sure he does not develop C. diff. We will continue his home medications of aspirin, Lipitor, carvedilol, citalopram, Neurontin, lisinopril at 5 mg daily, trazodone, MiraLAX, and latanoprost as before. We will also continue his Coumadin for prior history of pulmonary embolism. We will obtain an ultrasound and venous Doppler of lower extremities to rule out deep venous thrombosis. He will also be on DuoNeb q.6 hourly. Once cultures are obtained, his antibiotics will be switched based on sensitivities. Job ID: [id number] [facility]
[2018-12-12] MEDS ORDERED: Ibuprofen 800 MG TAB PO SCH (16:30)
[2018-12-12] MEDS ORDERED: Warfarin Sodium 5 MG TAB PO SCH (17:00)
[2018-12-12 17:52] VITALS: BMI 29.9
--- NOTE | 2018-12-12 18:12 | ULT ---
BILATERAL LOWER EXTREMITY VENOUS ULTRASOUND WITH DOPPLER: History: Evaluate for lower extremity thrombus. There is erythema and swelling. Edema. Comparison: None. Technique: Grayscale, color flow, doppler imaging and spectral waveform analysis was performed of the left and right lower extremity system. FINDINGS: There is nonspecific pulsatile flow in both lower extremity venous systems. Correlate for right heart failure. Incidental enlarged right inguinal lymph node measuring 1.4 cm. Fatty hilum is preserved. Bilaterally there is compressibility, presence of flow and augmentation in the common femoral veins, femoral veins, and popliteal veins. Flow in bilateral greater saphenous veins, profunda femoral veins and posterior tibial veins. IMPRESSION: 1. No acute thrombus in the left or right lower extremity venous system. 2. Pulsatile flow in visualized lower extremity venous systems. Correlate for right heart failure. POS: [facility]
[2018-12-12] MEDS: Dextrose 5 % And 0.9 % NaCl 1,000 ML IV SCH (19:45)
[2018-12-12] MEDS: Carvedilol 6.25 MG TAB PO SCH (20:07)
[2018-12-12] MEDS: Divalproex Sodium 125 mg Sprinkle Capsule PO SCH (20:10)
[2018-12-12] MEDS: traZODone HCl 50 MG TAB PO SCH (20:10)
[2018-12-12] MEDS: Atorvastatin Calcium 40 MG TAB PO SCH (20:10)
[2018-12-12] MEDS: Gabapentin 400 MG CAP PO SCH (20:10)
[2018-12-12] MEDS: Latanoprost 0.005% Ophth Soln 2.5 ml Bottle EA EYE SCH (20:53)
[2018-12-13 05:35] LABS: INR-International Normal Ratio 3.2; Prothrombin Time 32.8 SEC (12.0-14.7)
[2018-12-13 05:36] LABS: #Eosinphils 0.1 thou/uL (0.0-0.7); #Lymphocytes 0.7 thou/uL (1.20-3.40); #Monocytes 1.2 thou/uL (0.11-0.59); #Neutrophils 10.3 thou/uL (1.40-6.50); %Basophils 0.2 % (0.0-1.0); %Eosinophils 0.7 % (0.0-10.0); %Lymphocytes 5.7 % (21.0-51.0); %Monocytes 9.5 % (0.0-10.0); %Neutrophils 83.9 % (42.0-75.0); Hemoglobin 10.4 g/dL (14.0-18.0); Mean Corpuscular HGB CONC 31.8 g/dL (32.0-36.0); Mean Corpuscular Hemoglobin 30.1 pg (27.0-31.0); Mean Corpuscular Volume 94.8 fL (78.0-98.0); Platelet Count 144 thou/uL (130-400); RBC Distribution Width 13.8 % (11.5-14.5); Red Blood Cell (RBC) Count 3.46 mill/uL (4.70-6.10); White Blood Cell (WBC) Count 12.3 thou/uL (4.8-10.8)
[2018-12-13 05:55] LABS: Anion Gap 10 mmol/L (10-20); BUN (Urea Nitrogen) 20 mg/dL (8.4-25.7); Calc. Creatinine Clearance 62 mL/min (70-130); Calcium 8.2 mg/dL (7.8-10.44); Carbon Dioxide 28 mmol/L (23-31); Chloride 109 mmol/L (98-107); Estimated GFR-MDRD 55; Glucose 106 mg/dL (83-110); Potassium 3.8 mmol/L (3.5-5.1); Sodium 143 mmol/L (136-145)
[2018-12-13] MEDS ORDERED: Prevnar 13-Val Conj/PF 0.5 ML SYRINGE IM ONE (09:00)
[2018-12-13] MEDS ORDERED: Aspirin Chewable 81 MG TAB PO SCH (09:00)
[2018-12-13] MEDS: Famotidine 20 MG TAB PO SCH (10:51)
[2018-12-13] MEDS: Polyethylene Glycol 3350 17 GM Packet PO SCH ×2 (10:51→18:51)
[2018-12-13] MEDS: Citalopram 10 MG TAB PO SCH (10:51)
[2018-12-13] MEDS: Gabapentin 400 MG CAP PO SCH ×2 (10:51→20:17)
[2018-12-13] MEDS: Divalproex Sodium 125 mg Sprinkle Capsule PO SCH ×2 (10:51→20:17)
[2018-12-13] MEDS: Carvedilol 6.25 MG TAB PO SCH ×2 (10:52→18:50)
[2018-12-13] MEDS: Multivit, Therapeutic 1 TAB PO SCH (10:52)
[2018-12-13] MEDS: Allopurinol 300 MG TAB PO SCH (10:53)
[2018-12-13] MEDS: Lisinopril 5 MG TAB PO SCH (10:53)
[2018-12-13] MEDS: Docusate 100 MG CAP PO SCH (10:53)
[2018-12-13] MEDS: Dextrose 5 % And 0.9 % NaCl 1,000 ML IV SCH (10:58)
--- NOTE | 2018-12-13 12:24 | PDOC.PN ---
- Subjective Encounter Start Date: 12/13/18 Encounter Start Time: 10:00 Subjective: awake, no sob, at bedside - Objective Resuscitation Status - Order Detail: 12/12/18 14:16 Resuscitation Status Routine Resuscitation Status: DNAR: NO Resuscitation Discussed with: POA: , d/w patient and at bedside in ER room Dec Reviewed: Yes Vital Signs & Weight: Vital Signs (12 hours) Temp Pulse Resp BP BP Pulse Ox 12/13/18 10:53 65 141/62 H 12/13/18 10:52 141/62 H 12/13/18 08:00 98.1 F 65 16 141/62 H 96 12/13/18 06:06 54 L 16 93 L 12/13/18 03:50 97.8 F 67 20 144/60 H 92 L Weight Weight 223 lb 4.8 oz I&O: 12/12/18 12/13/18 12/14/18 06:59 06:59 06:59 Intake Total 905 Balance 905 Result Diagrams: 12/13/18 04:44 12/13/18 04:44 Phys Exam - Physical Examination HEENT: PERRLA, moist MMs Neck: no JVD, supple Respiratory: no wheezing, no rales rhonchi+ Cardiovascular: RRR, no significant murmur Gastrointestinal: soft, non-tender, positive bowel sounds Musculoskeletal: pulses present, edema present Neurological: non-focal, moves all 4 limbs Dx/Plan (1) Acute encephalopathy Code(s): G93.40 - ENCEPHALOPATHY, UNSPECIFIED Status: Resolved (2) Dehydration Code(s): E86.0 - DEHYDRATION Status: Resolved (3) UTI (urinary tract infection) Status: Acute Qualifiers: Urinary tract infection type: acute cystitis Hematuria presence: with hematuria Qualified Code(s): N30.01 - Acute cystitis with hematuria (4) Anxiety and depression Code(s): F41.9 - ANXIETY DISORDER, UNSPECIFIED; F32.9 - MAJOR DEPRESSIVE DISORDER, SINGLE EPISODE, UNSPECIFIED Status: Chronic (5) Dementia Code(s): F03.90 - UNSPECIFIED DEMENTIA WITHOUT BEHAVIORAL DISTURBANCE Status: Chronic Qualifiers: Dementia type: Alzheimer's disease Alzheimer's disease onset: unspecified onset Dementia behavioral disturbance: without behavioral disturbance Qualified Code(s): G30.9 - Alzheimer's disease, unspecified; F02.80 - Dementia in other diseases classified elsewhere without behavioral disturbance (6) Glaucoma Code(s): H40.9 - UNSPECIFIED GLAUCOMA Status: Chronic Qualifiers: Glaucoma type: unspecified (7) Gout Code(s): M10.9 - GOUT, UNSPECIFIED Status: Chronic Qualifiers: Gout site: unspecified site (8) Hypertension Code(s): I10 - ESSENTIAL (PRIMARY) HYPERTENSION Status: Chronic Qualifiers: Hypertension type: essential hypertension Qualified Code(s): I10 - Essential (primary) hypertension (9) Oropharyngeal dysphagia Code(s): R13.12 - DYSPHAGIA, OROPHARYNGEAL PHASE Status: Chronic (10) Hematuria Code(s): R31.9 - HEMATURIA, UNSPECIFIED Status: Acute Qualifiers: Hematuria type: gross Qualified Code(s): R31.0 - Gross hematuria - Plan is on ceftriaxone -: likely has underlying prostatic enlargement, d/w -: inr is 3.2, coumadin and asp are on hold -: will reverse anticoagulation if his bleeding worsens -: no dvt in LE, last PE was in 2003 per * . on lipitor, coreg, neurontin, lisinopril. prognosis guarded. Review of Systems - Medications/Allergies Allergies/Adverse Reactions: Allergies Allergy/AdvReac Type Severity Reaction Status Date / Time doxycycline Allergy Verified 11/10/16 15:38 Penicillins Allergy Verified 11/10/16 15:38 Sulfa (Sulfonamide Allergy Verified 11/10/16 15:38 Antibiotics) Medications: Current Medications Acetaminophen (Tylenol) 650 mg PO Q4H PRN PRN Reason: Headache/Fever/Mild Pain (1-3) Albuterol/Ipratropium (Duoneb) 3 ml NEB [id number] [facility] Last Admin: 12/13/18 06:06 Dose: 3 ml Allopurinol (Zyloprim) 300 mg PO DAILY [facility] Last Admin: 12/13/18 10:53 Dose: 300 mg Atorvastatin Calcium (Lipitor) 40 mg PO HS [facility] Last Admin: 12/12/18 20:10 Dose: 40 mg Carvedilol (Coreg) 6.25 mg PO BID-WM [facility] Last Admin: 12/13/18 10:52 Dose: 6.25 mg Citalopram Hydrobromide (Celexa) 10 mg PO DAILY [facility] Last Admin: 12/13/18 10:51 Dose: 10 mg Divalproex Sodium (Depakote Sprinkle) 125 mg PO BID [facility] Last Admin: 12/13/18 10:51 Dose: 125 mg Docusate Sodium (Colace) 100 mg PO DAILY [facility] Last Admin: 12/13/18 10:53 Dose: 100 mg Famotidine (Pepcid) 20 mg PO DAILY [facility] Last Admin: 12/13/18 10:51 Dose: 20 mg Gabapentin (Neurontin) 800 mg PO BID [facility] Last Admin: 12/13/18 10:51 Dose: 800 mg Guaifenesin/Dextromethorphan (Robitussin Dm) 15 ml PO Q4H PRN PRN Reason: Cough Ceftriaxone Sodium 1 gm/ (Sodium Chloride) 100 mls @ 200 mls/hr IVPB Q24HR [facility] Dextrose/Sodium Chloride (D5 0.9% Ns) 1,000 mls @ 50 mls/hr IV .Q20H [facility] Last Admin: 12/13/18 10:58 Dose: 1,000 mls Latanoprost (Xalatan 0.005% Oph Soln) 1 drop [facility] Last Admin: 12/12/18 20:53 Dose: 1 drp Lisinopril (Zestril) 5 mg PO DAILY [facility] Last Admin: 12/13/18 10:53 Dose: 5 mg Multivitamins (Theragran) 1 tab PO DAILY [facility] Last Admin: 12/13/18 10:52 Dose: 1 tab Ondansetron HCl (Zofran) 4 mg IVP Q6H PRN PRN Reason: Nausea/Vomiting Polyethylene Glycol (Miralax) 17 gm PO DAILY [facility] Last Admin: 12/13/18 10:51 Dose: 17 gm Senna/Docusate Sodium (Senokot S) 2 tab PO BID PRN PRN Reason: Constipation Trazodone HCl (Desyrel) 50 mg PO HS [facility] Last Admin: 12/12/18 20:10 Dose: 50 mg
[2018-12-13] MEDS: cefTRIAXone\\ROCEPHIN 1 GM in Sodium Chloride 0.9% 100 ML IVPB SCH (14:07)
[2018-12-13] MEDS: Atorvastatin Calcium 40 MG TAB PO SCH (20:17)
[2018-12-13] MEDS: Latanoprost 0.005% Ophth Soln 2.5 ml Bottle EA EYE SCH (20:17)
[2018-12-13] MEDS: traZODone HCl 50 MG TAB PO SCH (20:17)
[2018-12-14] MEDS ORDERED: Melatonin 3 MG TAB PO PRN (00:46)
[2018-12-14] MEDS: Acetaminophen 325 MG TAB PO PRN ×2 (00:50→20:46)
[2018-12-14] MEDS: Dextrose 5 % And 0.9 % NaCl 1,000 ML IV SCH (04:30)
[2018-12-14 07:25] LABS: #Eosinphils 0.5 thou/uL (0.0-0.7); #Lymphocytes 1.4 thou/uL (1.20-3.40); #Monocytes 0.8 thou/uL (0.11-0.59); #Neutrophils 4.7 thou/uL (1.40-6.50); %Basophils 0.4 % (0.0-1.0); %Eosinophils 6.4 % (0.0-10.0); %Lymphocytes 18.6 % (21.0-51.0); %Monocytes 11.2 % (0.0-10.0); %Neutrophils 63.4 % (42.0-75.0); Hemoglobin 10.8 g/dL (14.0-18.0); Mean Corpuscular HGB CONC 30.5 g/dL (32.0-36.0); Mean Corpuscular Volume 95.1 fL (78.0-98.0); Mean Platelet Volume 9.5 fL (7.4-10.4); Platelet Count 148 thou/uL (130-400); RBC Distribution Width 13.7 % (11.5-14.5); Red Blood Cell (RBC) Count 3.72 mill/uL (4.70-6.10); White Blood Cell (WBC) Count 7.4 thou/uL (4.8-10.8)
[2018-12-14 07:31] LABS: Prothrombin Time 31.2 SEC (12.0-14.7)
[2018-12-14 07:49] LABS: Anion Gap 10 mmol/L (10-20); BUN (Urea Nitrogen) 17 mg/dL (8.4-25.7); Calc. Creatinine Clearance 66 mL/min (70-130); Calcium 8.3 mg/dL (7.8-10.44); Carbon Dioxide 28 mmol/L (23-31); Chloride 110 mmol/L (98-107); Estimated GFR-MDRD 60; Glucose 94 mg/dL (83-110); Potassium 3.8 mmol/L (3.5-5.1); Sodium 144 mmol/L (136-145)
[2018-12-14] MEDS: Citalopram 10 MG TAB PO SCH (09:24)
[2018-12-14] MEDS: Divalproex Sodium 125 mg Sprinkle Capsule PO SCH ×2 (09:24→20:43)
[2018-12-14] MEDS: Gabapentin 400 MG CAP PO SCH ×2 (09:24→20:43)
[2018-12-14] MEDS: Multivit, Therapeutic 1 TAB PO SCH (09:24)
[2018-12-14] MEDS: Famotidine 20 MG TAB PO SCH (09:25)
[2018-12-14] MEDS: Allopurinol 300 MG TAB PO SCH (09:25)
[2018-12-14] MEDS: Carvedilol 6.25 MG TAB PO SCH ×2 (09:25→18:13)
[2018-12-14] MEDS: Lisinopril 5 MG TAB PO SCH (09:25)
[2018-12-14] MEDS: Docusate 100 MG CAP PO SCH (09:25)
[2018-12-14] MEDS: Polyethylene Glycol 3350 17 GM Packet PO SCH (09:40)
--- NOTE | 2018-12-14 11:14 | PDOC.PN ---
- Subjective Encounter Start Date: 12/14/18 Encounter Start Time: 11:00 Subjective: no sob, is awake and oriented -: ate his breakfast well -: drinks half can of ensure - Objective Resuscitation Status - Order Detail: 12/12/18 14:16 Resuscitation Status Routine Resuscitation Status: DNAR: NO Resuscitation Discussed with: POA: , d/w patient and at bedside in ER room Dec Reviewed: Yes Vital Signs & Weight: Vital Signs (12 hours) Temp Pulse Resp BP BP Pulse Ox 12/14/18 09:25 75 153/70 H 12/14/18 07:45 97.8 F 75 20 153/70 H 91 L 12/14/18 07:17 79 16 93 L 12/14/18 01:00 68 16 92 L Weight Weight 218 lb 8 oz I&O: 12/13/18 12/14/18 12/15/18 06:59 06:59 06:59 Intake Total 905 1650 200 Balance 905 1650 200 Result Diagrams: 12/14/18 07:09 12/14/18 07:09 Phys Exam - Physical Examination HEENT: PERRLA, moist MMs Neck: no nodes, no JVD Respiratory: no wheezing, no rales Cardiovascular: RRR, no significant murmur Gastrointestinal: soft, non-tender, positive bowel sounds Musculoskeletal: pulses present, edema present Neurological: non-focal, moves all 4 limbs Psychiatric: A&O x 3 Dx/Plan (1) Acute encephalopathy Code(s): G93.40 - ENCEPHALOPATHY, UNSPECIFIED Status: Resolved (2) Dehydration Code(s): E86.0 - DEHYDRATION Status: Resolved (3) UTI (urinary tract infection) Status: Acute Qualifiers: Urinary tract infection type: acute cystitis Hematuria presence: with hematuria Qualified Code(s): N30.01 - Acute cystitis with hematuria (4) Anxiety and depression Code(s): F41.9 - ANXIETY DISORDER, UNSPECIFIED; F32.9 - MAJOR DEPRESSIVE DISORDER, SINGLE EPISODE, UNSPECIFIED Status: Chronic (5) Dementia Code(s): F03.90 - UNSPECIFIED DEMENTIA WITHOUT BEHAVIORAL DISTURBANCE Status: Chronic Qualifiers: Dementia type: Alzheimer's disease Alzheimer's disease onset: unspecified onset Dementia behavioral disturbance: without behavioral disturbance Qualified Code(s): G30.9 - Alzheimer's disease, unspecified; F02.80 - Dementia in other diseases classified elsewhere without behavioral disturbance (6) Glaucoma Code(s): H40.9 - UNSPECIFIED GLAUCOMA Status: Chronic Qualifiers: Glaucoma type: unspecified (7) Gout Code(s): M10.9 - GOUT, UNSPECIFIED Status: Chronic Qualifiers: Gout site: unspecified site (8) Hypertension Code(s): I10 - ESSENTIAL (PRIMARY) HYPERTENSION Status: Chronic Qualifiers: Hypertension type: essential hypertension Qualified Code(s): I10 - Essential (primary) hypertension (9) Oropharyngeal dysphagia Code(s): R13.12 - DYSPHAGIA, OROPHARYNGEAL PHASE Status: Chronic (10) Hematuria Code(s): R31.9 - HEMATURIA, UNSPECIFIED Status: Resolved Qualifiers: Hematuria type: gross Qualified Code(s): R31.0 - Gross hematuria - Plan now passing clear urine, no blood or clots now -: tolerating oral diet -: is more awake and oriented this morning -: dc plan in am -: urine culture is pending, on ceftriaxone * . continue ensure 1/2 can tid hold coumadin for another day and restart from am on lipitor, correg, lisinopril and neurontin. [place] hose to both lower extremities, good capillary refill with no sign of cyanosis. Review of Systems - Medications/Allergies Allergies/Adverse Reactions: Allergies Allergy/AdvReac Type Severity Reaction Status Date / Time doxycycline Allergy Verified 11/10/16 15:38 Penicillins Allergy Verified 11/10/16 15:38 Sulfa (Sulfonamide Allergy Verified 11/10/16 15:38 Antibiotics) Medications: Current Medications Acetaminophen (Tylenol) 650 mg PO Q4H PRN PRN Reason: Headache/Fever/Mild Pain (1-3) Last Admin: 12/14/18 00:50 Dose: 650 mg Albuterol/Ipratropium (Duoneb) 3 ml NEB [id number] [facility] Last Admin: 12/14/18 07:17 Dose: 3 ml Allopurinol (Zyloprim) 300 mg PO DAILY [facility] Last Admin: 12/14/18 09:25 Dose: 300 mg Atorvastatin Calcium (Lipitor) 40 mg PO HS [facility] Last Admin: 12/13/18 20:17 Dose: 40 mg Carvedilol (Coreg) 6.25 mg PO BID-WM [facility] Last Admin: 12/14/18 09:25 Dose: 6.25 mg Citalopram Hydrobromide (Celexa) 10 mg PO DAILY [facility] Last Admin: 12/14/18 09:24 Dose: 10 mg Divalproex Sodium (Depakote Sprinkle) 125 mg PO BID [facility] Last Admin: 12/14/18 09:24 Dose: 125 mg Docusate Sodium (Colace) 100 mg PO DAILY [facility] Last Admin: 12/14/18 09:25 Dose: 100 mg Famotidine (Pepcid) 20 mg PO DAILY [facility] Last Admin: 12/14/18 09:25 Dose: 20 mg Gabapentin (Neurontin) 800 mg PO BID [facility] Last Admin: 12/14/18 09:24 Dose: 800 mg Guaifenesin/Dextromethorphan (Robitussin Dm) 15 ml PO Q4H PRN PRN Reason: Cough Ceftriaxone Sodium 1 gm/ (Sodium Chloride) 100 mls @ 200 mls/hr IVPB Q24HR [facility] Last Admin: 12/13/18 14:07 Dose: 100 mls Dextrose/Sodium Chloride (D5 0.9% Ns) 1,000 mls @ 50 mls/hr IV .Q20H [facility] Last Admin: 12/14/18 04:30 Dose: 1,000 mls Latanoprost (Xalatan 0.005% Oph Soln) 1 drop EA EYE HS [facility] Last Admin: 12/13/18 20:17 Dose: 1 drp Lisinopril (Zestril) 5 mg PO DAILY [facility] Last Admin: 12/14/18 09:25 Dose: 5 mg Melatonin (Melatonin) 3 mg PO HS PRN PRN Reason: Insomnia Last Admin: 12/14/18 00:50 Dose: 3 mg Multivitamins (Theragran) 1 tab PO DAILY [facility] Last Admin: 12/14/18 09:24 Dose: 1 tab Ondansetron HCl (Zofran) 4 mg IVP Q6H PRN PRN Reason: Nausea/Vomiting Polyethylene Glycol (Miralax) 17 gm PO DAILY [facility] Last Admin: 12/14/18 09:40 Dose: Not Given Senna/Docusate Sodium (Senokot S) 2 tab PO BID PRN PRN Reason: Constipation Trazodone HCl (Desyrel) 50 mg PO HS [facility] Last Admin: 12/13/18 20:17 Dose: 50 mg
[2018-12-14] MEDS: cefTRIAXone\\ROCEPHIN 1 GM in Sodium Chloride 0.9% 100 ML IVPB SCH (12:48)
[2018-12-14] MEDS ORDERED: Haloperidol Lactate 5 MG/ML VIAL IM SCH (16:00)
[2018-12-14 19:34] VITALS: TEMP 98.1
[2018-12-14] MEDS: Atorvastatin Calcium 40 MG TAB PO SCH (20:43)
[2018-12-14] MEDS: traZODone HCl 50 MG TAB PO SCH (20:44)
[2018-12-14] MEDS: Latanoprost 0.005% Ophth Soln 2.5 ml Bottle EA EYE SCH (20:45)
[2018-12-15] MEDS: Dextrose 5 % And 0.9 % NaCl 1,000 ML IV SCH (00:21)
[2018-12-15 04:45] LABS: INR-International Normal Ratio 2.2; Prothrombin Time 24.6 SEC (12.0-14.7)
[2018-12-15] MEDS: Allopurinol 300 MG TAB PO SCH (08:57)
[2018-12-15] MEDS: Carvedilol 6.25 MG TAB PO SCH (08:57)
[2018-12-15] MEDS: Multivit, Therapeutic 1 TAB PO SCH (08:57)
[2018-12-15] MEDS: Lisinopril 5 MG TAB PO SCH (08:57)
[2018-12-15] MEDS: Famotidine 20 MG TAB PO SCH (08:57)
[2018-12-15] MEDS: Polyethylene Glycol 3350 17 GM Packet PO SCH (09:00)
[2018-12-15 10:11] VITALS: BP 148/74
[2018-12-15] MEDS: Docusate 100 MG CAP PO SCH (10:31)
[2018-12-15] MEDS: Citalopram 10 MG TAB PO SCH (10:32)
[2018-12-15] MEDS: Divalproex Sodium 125 mg Sprinkle Capsule PO SCH (10:32)
[2018-12-15] MEDS: cefTRIAXone\\ROCEPHIN 1 GM in Sodium Chloride 0.9% 100 ML IVPB SCH (12:17)
--- NOTE | 2018-12-15 12:19 | PDOC.PN ---
- Subjective Encounter Start Date: 12/15/18 Encounter Start Time: 09:00 Subjective: awake and responds well to verbal stimuli -: is calm with no agitation - Objective Resuscitation Status - Order Detail: 12/12/18 14:16 Resuscitation Status Routine Resuscitation Status: DNAR: NO Resuscitation Discussed with: POA: , d/w patient and at bedside in ER room Dec Reviewed: Yes Vital Signs & Weight: Vital Signs (12 hours) Temp Pulse Resp BP BP Pulse Ox 12/15/18 08:57 59 L 154/72 H 12/15/18 08:00 98.1 F 79 16 148/74 H 93 L 12/15/18 06:25 59 L 16 93 L 12/15/18 00:45 69 16 92 L Weight Weight 218 lb 5 oz I&O: 12/14/18 12/15/18 12/16/18 06:59 06:59 06:59 Intake Total 1650 450 592 Balance 1650 450 592 Result Diagrams: 12/14/18 07:09 12/14/18 07:09 Phys Exam - Physical Examination HEENT: PERRLA, moist MMs Neck: no JVD, supple Respiratory: no wheezing, no rales Cardiovascular: RRR, no significant murmur Gastrointestinal: soft, non-tender, positive bowel sounds Musculoskeletal: no edema, pulses present Neurological: non-focal, moves all 4 limbs Dx/Plan (1) Acute encephalopathy Code(s): G93.40 - ENCEPHALOPATHY, UNSPECIFIED Status: Resolved (2) Dehydration Code(s): E86.0 - DEHYDRATION Status: Resolved (3) UTI (urinary tract infection) Status: Acute Qualifiers: Urinary tract infection type: acute cystitis Hematuria presence: with hematuria Qualified Code(s): N30.01 - Acute cystitis with hematuria (4) Anxiety and depression Code(s): F41.9 - ANXIETY DISORDER, UNSPECIFIED; F32.9 - MAJOR DEPRESSIVE DISORDER, SINGLE EPISODE, UNSPECIFIED Status: Chronic (5) Dementia Code(s): F03.90 - UNSPECIFIED DEMENTIA WITHOUT BEHAVIORAL DISTURBANCE Status: Chronic Qualifiers: Dementia type: Alzheimer's disease Alzheimer's disease onset: unspecified onset Dementia behavioral disturbance: without behavioral disturbance Qualified Code(s): G30.9 - Alzheimer's disease, unspecified; F02.80 - Dementia in other diseases classified elsewhere without behavioral disturbance (6) Glaucoma Code(s): H40.9 - UNSPECIFIED GLAUCOMA Status: Chronic Qualifiers: Glaucoma type: unspecified (7) Gout Code(s): M10.9 - GOUT, UNSPECIFIED Status: Chronic Qualifiers: Gout site: unspecified site (8) Hypertension Code(s): I10 - ESSENTIAL (PRIMARY) HYPERTENSION Status: Chronic Qualifiers: Hypertension type: essential hypertension Qualified Code(s): I10 - Essential (primary) hypertension (9) Oropharyngeal dysphagia Code(s): R13.12 - DYSPHAGIA, OROPHARYNGEAL PHASE Status: Chronic (10) Hematuria Code(s): R31.9 - HEMATURIA, UNSPECIFIED Status: Resolved Qualifiers: Hematuria type: gross Qualified Code(s): R31.0 - Gross hematuria - Plan vantin for uti -: hemostable -: continue seroquel bid in addition to celexa and trazadone -: dc pt to snf * .
[2018-12-15] MEDS: Gabapentin 400 MG CAP PO SCH (12:20)
--- NOTE | 2018-12-16 13:39 | DIS ---
DATE OF ADMISSION: 12/12/2018 DATE OF DISCHARGE: 12/15/2018 DISCHARGE DISPOSITION: To [facility]. PRIMARY DISCHARGE DIAGNOSES: Acute encephalopathy with urinary tract infection and dehydration, resolving. SECONDARY DISCHARGE DIAGNOSES: Dementia, anxiety, depression, oropharyngeal dysphagia with aspiration precautions, hematuria resolving, hypertension, gout, and glaucoma. PROCEDURES DONE DURING HOSPITALIZATION: Chest x-ray showed no acute changes when compared to prior x-ray. Ultrasound venous Doppler of both lower extremities done showed no evidence of DVT. Urine culture grew E. coli sensitive to ceftazidime, ceftriaxone, and cefepime. Blood cultures x2, no growth. Influenza A and B antigens were negative. Had a white count of 17 on the day of admission with discharge number of 7, H and H are 10 and 35, platelet count 148. PT/INR on the day of discharge is 24 and 2.2. BUN and creatinine are 17 and 1.1 on the day of discharge. Troponin was indeterminate, peaking up to 0.04. BNP was 1517. DISCHARGE MEDICATIONS: 1. Allopurinol 300 mg p.o. daily. 2. Norvasc 10 mg p.o. daily. 3. Celexa 10 mg p.o. daily. 4. Depakote 125 mg p.o. q.a.m. 5. Colace 100 mg daily. 6. Gabapentin 800 mg p.o. twice daily. 7. Lisinopril 5 mg p.o. q.a.m. 8. Multivitamin one tablet once daily. 9. MiraLAX 17 g daily. 10. Travatan eye drops at bedtime. 11. Trazodone 50 mg p.o. at bedtime. 12. Coumadin 7.5 mg p.o. daily. 13. Vantin 200 mg p.o. twice daily for 5 days. 14. DuoNeb q.6 hourly p.r.n. 15. Seroquel 25 mg p.o. twice daily. ALLERGIES: ALLERGIC TO DOXYCYCLINE, PENICILLIN, AND SULFA. DISCHARGE PLAN: The patient is to follow up with primary care physician in 1 week. BRIEF COURSE DURING HOSPITALIZATION: The patient initially got sent over from [facility] for increasing confusion and loss of appetite. He was also having delusions. The patient was essentially admitted to medical floor for acute encephalopathy with urinary tract infection and dehydration. He was gently hydrated during his stay here. The patient has history of ongoing oropharyngeal dysphagia. He has underlying dementia with behavioral disturbance as well. He had mild demand ischemia due to above is resolving. The patient did not have any acute CHF exacerbation. He was closely monitored on medical floor. The patient has come back to his baseline cognitive function. He has had sundowning with agitation and has been placed on Seroquel 25 mg twice daily in addition to Celexa and trazodone that he is on. The patient will need escalating doses based on response to current medications for his dementia with psychosis. He needs to continue Vantin for another 5 days for his UTI. His overall prognosis is guarded. The patient is essentially bed bound and mobilizes himself into a wheelchair. Complete updates were given to the patient 's during his stay here. We will discuss with Dr. Lilly, his primary care physician as well. A total of 35 minutes was spent on discharge plan. Please see a [id number] documentation for the day of discharge on [place]. Job ID: [id number] [facility]
--- NOTE | 2018-12-17 14:15 | PQF ---
CARMELINA ADAME VINAYA KUMAR MD [phone] CLINICAL DOCUMENTATION CLARIFICATION FORM: POST DISCHARGE Addendum to original discharge summary date: ____ Late entry note date: __ DATE: 12/17/18 ATTN: Dr. Davis, Please exercise your independent, professional judgment in responding to the clarification form. Clinical indicators are provided on the bottom of this form for your review Please check appropriate box(s): [x ] Encephalopathy: Etiology: [ ] Hypertensive [ x] Metabolic [ ] Toxic [ ] Hepatic with Coma [ ] Hepatic w/o Coma [ ] Hypoxic [ ] Septic [ ] Drug induced: [ ] Unspecified [ ] in the setting of underlying dementia [ ] Other (please specify) [ ] Other diagnosis [ ] Unable to determine In addition, please specify: Present on Admission (POA): [ x ] Yes [ ] No [ ] Unable to determine For continuity of documentation, please document condition throughout progress notes and discharge summary. Thank You. CLINICAL INDICATORS - SIGNS / SYMPTOMS / LABS Increasing confusion---H&P Altered Mental Status--12/12 ED note Acute Encephalopathy---Discharge Summary Oropharyngeal dysphasgia---Discharge Summary RISK FACTORS Acute Cystitis with hematuria--12/15 Progress note Dementia---Discharge Summary TREATMENTS: Ceftriaxone 1 gram daily-ordered 12/12/18 IV fluids---Ordered Thank you, Marialuisa Walsh, FRANCES 12/17/18 2:11PM (This form is maintained as a part of the permanent medical record) 2014 [employer]. All Rights Reserved [email or web address] [phone] [facility]
== END 2018-12-15 13:08 | DRG 689 ==
LOC: ERS 10:07 → ONC 12:45
PROVIDERS: ADMIT Internal Medicine; ATTEND Internal Medicine
DX: N30.01 Acute cystitis with hematuria (principal); G82.50 Quadriplegia, unspecified; G93.41 Metabolic encephalopathy; I24.8 Other forms of acute ischemic heart disease; I73.9 Peripheral vascular disease, unspecified; I10 Essential (primary) hypertension; H40.9 Unspecified glaucoma; B96.20 Unspecified Escherichia coli [E. coli] as the cause of diseases classified elsewhere; R13.12 Dysphagia, oropharyngeal phase; N40.0 Benign prostatic hyperplasia without lower urinary tract symptoms; M19.90 Unspecified osteoarthritis, unspecified site; G30.9 Alzheimer's disease, unspecified; F02.80 Dementia in other diseases classified elsewhere, unspecified severity, without behavioral disturbance, psychotic disturbance, mood disturbance, and anxiety; M10.9 Gout, unspecified; F41.9 Anxiety disorder, unspecified; F32.9 Major depressive disorder, single episode, unspecified; G40.909 Epilepsy, unspecified, not intractable, without status epilepticus; Z92.3 Personal history of irradiation; Z74.01 Bed confinement status; Z87.01 Personal history of pneumonia (recurrent); Z85.818 Personal history of malignant neoplasm of other sites of lip, oral cavity, and pharynx; G50.0 Trigeminal neuralgia; Z79.899 Other long term (current) drug therapy; Z79.51 Long term (current) use of inhaled steroids; Z88.0 Allergy status to penicillin; Z88.2 Allergy status to sulfonamides; Z66 Do not resuscitate; E86.0 Dehydration; Z86.711 Personal history of pulmonary embolism; Z86.73 Personal history of transient ischemic attack (TIA), and cerebral infarction without residual deficits; S14.109S Unspecified injury at unspecified level of cervical spinal cord, sequela; W88.1XXS Exposure to radioactive isotopes, sequela
CPT/HCPCS: 36415; 51701; 71045; 80048; 80053; 81003; 81015; 82550; 82553; 83605; 83690; 83880; 84484; 85025; 85610; 87040; 87077; 87086; 87186; 87804; 93005; 93970; 94640; 96365; J0696; J7050; J7620

== ENCOUNTER 2019-05-18 13:45 | Inpatient (IN) | payer MEDICARE, MEDICAID ==
[2019-05-18 14:59] LABS: Hemoglobin 13.1 g/dL (14.0-18.0); Mean Corpuscular HGB CONC 33.2 g/dL (32.0-36.0); Mean Corpuscular Hemoglobin 30.6 pg (27.0-31.0); Mean Corpuscular Volume 92.4 fL (78.0-98.0); Mean Platelet Volume 10.6 fL (7.4-10.4); Platelet Count 140 thou/uL (130-400); RBC Distribution Width 15.3 % (11.5-14.5); Red Blood Cell (RBC) Count 4.29 mill/uL (4.70-6.10); White Blood Cell (WBC) Count 21.5 thou/uL (4.8-10.8)
[2019-05-18] MEDS ORDERED: MEROPENEM 1 GM/50 ML BAG IVPB SCH (15:00)
--- NOTE | 2019-05-18 15:05 | RAD ---
RADIOGRAPH CHEST 1 VIEW: Date: 05/18/19 Time: 2:29 p.m. HISTORY: 83-year-old male with fever and hypoxemia. COMPARISON: 12/12/18. FINDINGS: There is a new dense, ill-defined opacity at the right mid lung zone of moderate size. Again noted is a chronically elevated left hemidiaphragm. No pulmonary edema or pneumothorax. IMPRESSION: 1. New pulmonary opacity on the right side: evidence for right sided pneumonia. 2. Recommend serial follow up chest radiographs, beginning in 1 week, until complete resolution. 3. Chronically elevated left hemidiaphragm. JN [] POS: OFF
[2019-05-18 15:20] LABS: Anisocytosis SLIGHT = 6-15 cells (100X) (0-5/hpf); Band 25 % (5-11); Lymphocytes 6 % (21-51); MDiff Complete? YES; Metamyelocyte 2 % (0-0); Monocytes 4 % (0-10); Neutrophil 61 % (42-75); Ovalocytes SLIGHT = 2-5 cells (100X) (0-1/hpf); Platelet Morphology Comment Appears Adequate; Polychromasia SLIGHT = 2-3 cells (100X) (0-2/hpf); Reactive Lymphocytes 2 % (0-10); Schistocytes SLIGHT = 2-5 cells (100X) (0-1/hpf)
[2019-05-18 15:21] LABS: ALT (SGPT) Less than 7 U/L (8-55); AST (SGOT) 11 U/L (5-34); Albumin 3.2 g/dL (3.4-4.8); Alkaline Phosphatase 84 U/L (40-150); Anion Gap 11 mmol/L (10-20); BUN (Urea Nitrogen) 27 mg/dL (8.4-25.7); Bilirubin, Total 0.8 mg/dL (0.2-1.2); Calc. Creatinine Clearance 0 mL/min (70-130); Carbon Dioxide 29 mmol/L (23-31); Chloride 107 mmol/L (98-107); Estimated GFR-MDRD 44; Globulin 2.6 g/dL (2.4-3.5); Glucose 115 mg/dL (83-110); Potassium 4.5 mmol/L (3.5-5.1); Protein, Total 5.8 g/dL (5.8-8.1); Sodium 142 mmol/L (136-145)
[2019-05-18 15:48] LABS: Bacteria/HPF None Seen HPF (None Seen); Bilirubin Negative (Negative); Blood, Urine Negative (Negative); Clarity Clear (Clear); Glucose, Urine (Dipstick) Normal (Negative); Leukocyte Negative Leu/uL (Negative); Mucous/LPF Rare LPF (<2+); Nitrite Negative (Negative); Protein, Urine (Dipstick) 50 mg/dL (Neg-Trace); RBC/HPF 0-3 HPF (0-3); Squamous Epithelial None Seen HPF (0-3); WBC/HPF 0-3 HPF (0-3)
[2019-05-18] MEDS ORDERED: Clindamycin/D5W 900 mg/50 ml Premix Bag ONE (15:54)
[2019-05-18] MEDS ORDERED: Ondansetron ODT 4 MG TAB SL PRN (18:18)
[2019-05-18] MEDS ORDERED: Ondansetron PF 4 MG/2 ML Vial IVP PRN (18:18)
[2019-05-18] MEDS ORDERED: Famotidine/PF 20 mg/2ml Vial SLOW IVP SCH (21:00)
[2019-05-18 21:45] VITALS: BMI 28.9
[2019-05-18] MEDS: Atorvastatin Calcium 40 MG TAB PO SCH (22:37)
[2019-05-18] MEDS: Lisinopril 10 MG TAB PO SCH (22:37)
[2019-05-18] MEDS ORDERED: Clindamycin/D5W 900 MG in Premix Bag 1 BAG IVPB SCH (23:59)
--- NOTE | 2019-05-19 01:44 | HP ---
CHIEF COMPLAINT: Hypoxia and altered mental status. HISTORY OF PRESENT ILLNESS: This patient is an 83-year-old male, who presented via the emergency department. The patient lives at [facility]. He was noted today to have some decreased verbal interaction, which he has had in the past with prior infections. The patient has a history of throat cancer with radiation and associated dysphagia, has a history of FL and TIAs. Today, he was noted to have the altered mentation with decreased verbal responses. His evaluation revealed some hypoxia and reportedly some facial asymmetry, but the reports that she currently has no indication if that is the case. This patient's baseline is that he is typically very verbally interactive. The patient currently denies any problems as he is breathing comfortably. Denies any cough, although some cough was noted by his that she described as a wet cough. REVIEW OF SYSTEMS: The patient apparently has been eating and drinking well. His reports that he has been eating better since he has been on a pureed diet with nectar thick liquids. He has some chronic peripheral edema, for which he wears CHRISTOPHER hose. As far as she knows, he has had no fevers, chills, and has had normal bowel and bladder habits. All other systems were reviewed, all pertinent positives and negatives noted in the HPI. 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 The patient had an apparent pulmonary embolus following spinal surgery. PAST SURGICAL HISTORY: Spinal surgery, trach, knee surgery, jaw surgery, and hemorrhoidectomy. FAMILY HISTORY: Negative for coronary artery disease, stroke, or cancer. SOCIAL HISTORY: The patient lives at [facility]. He is . His is present. He has no history of alcohol, tobacco, or drugs. He is apparently primarily wheelchair bound and he is a DNR/DNI. ALLERGIES: REPORTS HIS ONLY ALLERGY IS PENICILLIN, ALTHOUGH HE HAS DOXYCYCLINE AND SULFA LISTED. SHE STATES THAT HIS PENICILLIN ALLERGY WAS FROM MANY MANY YEARS AGO. CURRENT MEDICATIONS: 1. Atorvastatin 40 mg daily. 2. Carvedilol 6.25 b.i.d. 3. Divalproex 125 mg, I believe it is three tablets b.i.d., although it is unclear at this point. 4. Lasix 20 mg daily. 5. Lisinopril 10 mg b.i.d. 6. Warfarin 7.5 mg. PHYSICAL EXAMINATION: VITAL SIGNS: Initially, the patient's blood pressure dropped down as low as 76/51 and currently 126/57, pulse 70, respirations 18, and O2 saturation 100% on 4 L nasal cannula. GENERAL APPEARANCE: Age-appropriate male. He is in no distress. He is resting comfortably in the ER [facility]. He is awake and talkative, has retained sense of humor. HEENT: PERRL. He has extraocular lens implants noted. He has no OP lesions. Small bit of white matter on the tongue with satellites concerning for possible thrush but not clear. He has some defect in the posterior right ramus consistent with the history of the osteonecrosis. NECK: Has old trach scar, which is well healed. HEART: Regular rate and rhythm without murmurs, gallops, or rubs. LUNGS: Diminished. He has some rales and wheezes bilaterally, but definitely worse on the right than the left. Fair air exchange otherwise. ABDOMEN: Soft, nontender, and nondistended with positive bowel sounds. No masses. No organomegaly. EXTREMITIES: He has one CHRISTOPHER hose. He has no cyanosis, clubbing, or edema. Has palpable and symmetric dorsalis pedis pulses. PSYCH: The patient has normal affect and behavior. NEUROLOGICAL: He appears to be grossly intact with no focal deficits. LABORATORY DATA: White count 21.5, hemoglobin 13.1, platelets 140, and 25% bands. Chemistry; sodium 142, potassium 4.5, chloride 107, CO2 of 29, BUN 27, creatinine is 1.52, and GFR is 44. Urinalysis is negative. IMAGING DATA: Chest x-ray shows right-sided infiltrate, which appears to be more in the middle lung with chronically elevated left hemidiaphragm. EKG is unremarkable for any ischemic changes. IMPRESSION AND PLAN: 1. Pneumonia. The patient has a significant infiltrate on chest x-ray on the right side consistent with pneumonia, unclear if this is aspiration. He does have a history of radiation damage, resulting in some dysphagia, so we will cover him with vancomycin and Levaquin. In the emergency department, he received vancomycin, meropenem, and clindamycin. We will continue with p.r.n. nebs as needed. 2. Acute hypoxic respiratory failure secondary to pneumonia. Continue with supplemental oxygen as needed. 3. Sepsis. The patient dropped his blood pressure in the emergency department related to this infection consistent with sepsis along with his significantly elevated white blood cell count. In the emergency department, the patient has received some fluid resuscitation and his blood pressure has responded. He has received a total of 2 L of fluid given his congestive heart failure history. We will keep that for now. 4. History of congestive heart failure, appears to be stable and not decompensated presently. We will need to watch fluids carefully. 5. Chronic kidney disease, stage 3. He is close to his baseline renal function now. We will need to renally dose medications. 6. History of seizure disorder. We will continue with his divalproex. 7. History of thromboembolic event. I am not sure of the details, but he is on warfarin for that and we will continue with that for now. 8. Dysphagia. We will keep him on a pureed diet and nectar thick liquids per the 's instructions and we will consult Speech Therapy as well. Job ID: [id number]
[2019-05-19] MEDS ORDERED: Vancomycin HCl 1 GM in Premix Bag 1 BAG IVPB SCH (02:00)
[2019-05-19] MEDS ORDERED: MEROPENEM 1 GM/50 ML 1 GM in Premix Bag 1 BAG IVPB SCH (04:00)
[2019-05-19 05:17] LABS: INR-International Normal Ratio 1.7; Prothrombin Time 19.9 SEC (12.0-14.7)
[2019-05-19 05:32] LABS: #Eosinphils 0.1 thou/uL (0.0-0.7); #Lymphocytes 1.8 thou/uL (1.20-3.40); #Monocytes 1.2 thou/uL (0.11-0.59); #Neutrophils 12.8 thou/uL (1.40-6.50); %Basophils 0.2 % (0.0-1.0); %Eosinophils 0.6 % (0.0-10.0); %Lymphocytes 11.5 % (21.0-51.0); %Monocytes 7.7 % (0.0-10.0); %Neutrophils 79.9 % (42.0-75.0); Hemoglobin 11.6 g/dL (14.0-18.0); Mean Corpuscular HGB CONC 33.1 g/dL (32.0-36.0); Mean Corpuscular Hemoglobin 31.6 pg (27.0-31.0); Mean Corpuscular Volume 95.4 fL (78.0-98.0); Mean Platelet Volume 10.9 fL (7.4-10.4); Platelet Count 114 thou/uL (130-400); Platelet Morphology Comment Appears Decreased; RBC Distribution Width 15.5 % (11.5-14.5); Red Blood Cell (RBC) Count 3.66 mill/uL (4.70-6.10)
[2019-05-19 05:33] LABS: Anion Gap 7 mmol/L (10-20); BUN (Urea Nitrogen) 29 mg/dL (8.4-25.7); Calc. Creatinine Clearance 56 mL/min (70-130); Calcium 8.4 mg/dL (7.8-10.44); Carbon Dioxide 28 mmol/L (23-31); Chloride 109 mmol/L (98-107); Estimated GFR-MDRD 55; Glucose 99 mg/dL (83-110); Potassium 4.2 mmol/L (3.5-5.1); Sodium 140 mmol/L (136-145)
[2019-05-19] MEDS: Lisinopril 10 MG TAB PO SCH ×2 (08:59→19:49)
[2019-05-19] MEDS: Furosemide 20 MG TAB PO SCH (08:59)
[2019-05-19] MEDS: Carvedilol 6.25 MG TAB PO SCH ×2 (08:59→15:52)
[2019-05-19] MEDS: Cefepime 1 GM in Sodium Chloride 0.9% 100 ML IVPB SCH ×2 (09:10→19:48)
--- NOTE | 2019-05-19 09:23 | CON ---
DATE OF CONSULTATION: HISTORY OF PRESENT ILLNESS: Kevin Montana is an 83-year-old gentleman demented from the fpc, presented with fever, acute mental status change, possible UTI. This morning, he is in MICU for reason for consult, not able to give any additional history. Not coughing. While arrived, he had foul-smelling diapers as per the ER note. Admission saturations were 90% on 4 L, temperature 99, and blood pressure 113/74. He was recently in the hospital, he was seen by Dr. Gauthier. PAST MEDICAL HISTORY: 1. Dementia. 2. Osteoarthritis. 3. Gout. 4. Hemorrhoids. 5. Dysphagia. 6. History of throat cancer. 7. History of tobacco abuse. 8. History of glaucoma. 9. Cataract. 10. TIA. 11. Hypertension. 12. Recurrent aspiration pneumonia. 13. Previous CO. PAST SURGICAL HISTORY: Including back surgery, previous radiation at [facility] ([place] for throat cancer, previous tracheostomy, previous jaw surgery, previous hemorrhoid surgery. SKILLED NURSING MEDICATIONS: 1. Coumadin 7.5. 2. Potassium. 3. Melatonin. 4. Zestril 10. 5. Lasix 20. 6. . 7. Coreg 6.25. 8. Calcium. X-ray shows now right-sided pneumonia. ALLERGIES: DOXY, PENICILLIN, SULFA. PHYSICAL EXAMINATION: VITAL SIGNS: saturations are 99% on 3 L, temperature 98, blood pressure 130/61, respiratory rate 18. CHEST: No wheezing or crackles. CARDIAC: Normal S1 and S2. No gallops. ABDOMEN: No masses. LABORATORY DATA: Admission white count 21,000, H and H 13 and 39, platelet count normal. His lytes are normal. Creatinine is elevated at 1.25. Urine was negative. IMPRESSION: 1. Right-sided pneumonia, probably aspiration. 2. Previous head and neck cancer status post radiation. 3. Dementia. 4. Renal failure. PLAN: I have added some anaerobic coverage to his present regime. Steroids may hasten recovery and start low-dose for few days. Continue neb treatments and supportive care. Consultation note, 70 minutes, 50% direct patient. Job ID: [id number]
[2019-05-19] MEDS: Acetaminophen 325 MG TAB PO PRN (11:40)
[2019-05-19] MEDS ORDERED: hydrALAZINE 20 MG/ML VIAL SLOW IVP PRN (14:36)
--- NOTE | 2019-05-19 14:46 | PDOC.HOSPP ---
- Subjective Subjective: 83 y/o male with throat cancer s/p radiation associated with dyphagia, CKD, CAD , CHF and prior DVT admitted due to AMS and hypoxia. Found to have right lung base infiltrate consistent with apiration pneumonia. Started on antimicrobial and oxygen with improvement. Still confused though improved. No fever since admission. - Objective Vital Signs & Weight: Vital Signs (12 hours) Temp BP Pulse Ox 05/19/19 11:44 98.7 F 05/19/19 08:59 120/54 L 05/19/19 08:00 98.3 F 05/19/19 07:25 99 05/19/19 03:00 97.6 F Weight Weight 201 lb 12.8 oz Most Recent Monitor Data Heart Rate from ECG 93 NIBP 188/88 NIBP BP-Mean 121 Respiration from ECG 20 SpO2 99 I&O: 05/18/19 05/19/19 05/20/19 06:59 06:59 06:59 Intake Total 200 Balance 200 Result Diagrams: 05/19/19 04:53 05/19/19 04:53 ROS - Review of Systems All systems: All other ROS were reviewed and found negative. - Medication Medications: Active Medications Generic Name Dose Route Start Last Admin Trade Name Freq PRN Reason Stop Dose Admin Acetaminophen 650 mg 05/18/19 18:49 05/19/19 11:40 Tylenol PO 650 mg Q4H PRN Administration Headache/Fever/Mild Pain (1-3) Atorvastatin Calcium 40 mg 05/18/19 21:00 05/18/19 22:37 Lipitor PO Not Given HS DAVID Carvedilol 6.25 mg 05/19/19 08:00 05/19/19 08:59 Coreg PO 6.25 mg BID-WM DAVID Administration Furosemide 20 mg 05/19/19 09:00 05/19/19 08:59 Lasix PO 20 mg DAILY DAVID Administration Levofloxacin 750 mg/ Device 150 mls @ 100 mls/hr 05/18/19 20:00 05/18/19 20: 21 IVPB 150 mls Q24HR DAVID Administration Cefepime HCl 1 gm/ Sodium 100 mls @ 200 mls/hr 05/19/19 09:00 05/19/19 09:10 Chloride IVPB 100 mls Q12HR DAVID Administration Lisinopril 10 mg 05/18/19 21:00 05/19/19 08:59 Zestril PO 10 mg BID DAVID Administration - Exam awake alert Eye: PERRL, anicteric sclera ENT: normocephalic atraumatic Neck: symmetric Heart: RRR Respiratory: no wheezes, no ronchi (fair air entry bilaterally with some transmitted sound) Gastrointestinal: soft, non-tender, non-distended, normal bowel sounds Extremities: no cyanosis, 1+ LE edema Neurological: CN's grossly intact, no focal deficits (Mild disorientation noted) Hosp A/P (1) Acute respiratory failure with hypoxia Code(s): J96.01 - ACUTE RESPIRATORY FAILURE WITH HYPOXIA Status: Acute (2) MARIA (acute kidney injury) Code(s): N17.9 - ACUTE KIDNEY FAILURE, UNSPECIFIED Status: Acute (3) CKD (chronic kidney disease) stage 3, GFR 30-59 ml/min Code(s): N18.3 - CHRONIC KIDNEY DISEASE, STAGE 3 (MODERATE) Status: Acute (4) Seizure Code(s): R56.9 - UNSPECIFIED CONVULSIONS Status: Acute (5) Aspiration pneumonia Code(s): J69.0 - PNEUMONITIS DUE TO INHALATION OF FOOD AND VOMIT Status: Acute (6) Chronic anticoagulation Code(s): Z79.01 - SECURITY FIELD SUPERVISOR (CURRENT) USE OF ANTICOAGULANTS Status: Chronic (7) Dementia Code(s): F03.90 - UNSPECIFIED DEMENTIA WITHOUT BEHAVIORAL DISTURBANCE Status: Chronic Qualifiers: Dementia type: Alzheimer's disease Alzheimer's disease onset: unspecified onset Dementia behavioral disturbance: without behavioral disturbance Qualified Code(s): G30.9 - Alzheimer's disease, unspecified; F02.80 - Dementia in other diseases classified elsewhere without behavioral disturbance (8) Hypertension Code(s): I10 - ESSENTIAL (PRIMARY) HYPERTENSION Status: Chronic Qualifiers: Hypertension type: essential hypertension Qualified Code(s): I10 - Essential (primary) hypertension (9) Oropharyngeal dysphagia Code(s): R13.12 - DYSPHAGIA, OROPHARYNGEAL PHASE Status: Chronic (10) Acute encephalopathy Code(s): G93.40 - ENCEPHALOPATHY, UNSPECIFIED Status: Resolved (11) Chronic systolic (congestive) heart failure Code(s): I50.22 - CHRONIC SYSTOLIC (CONGESTIVE) HEART FAILURE Status: Acute - Plan Add flagyl to antibiotics. We will transition to oral antibiotics tomorrow Wean oxygen as tolerated. Titrate antihypertensives to get adequate BP control. Consult palliative care to help with care goals. this is patients 3rd admission this year for aspiration pneumonia monitor renal function.
[2019-05-19] MEDS ORDERED: OLANZapine 2.5 MG TAB PO SCH (15:15)
[2019-05-19] MEDS: metroNIDAZOLE 500 MG TAB PO SCH ×2 (15:52→19:49)
[2019-05-19] MEDS: Warfarin Sodium 7.5 MG TAB PO SCH (15:54)
[2019-05-19] MEDS: Famotidine/PF 20 mg/2ml Vial SLOW IVP SCH (19:49)
[2019-05-19] MEDS: Divalproex Sodium 125 mg Sprinkle Capsule PO SCH (19:49)
[2019-05-19] MEDS: Atorvastatin Calcium 40 MG TAB PO SCH (19:49)
[2019-05-20 05:54] LABS: INR-International Normal Ratio 1.6; Prothrombin Time 18.8 SEC (12.0-14.7)
[2019-05-20] MEDS ORDERED: Prevnar 13-Val Conj/PF 0.5 ML SYRINGE IM ONE (09:00)
--- NOTE | 2019-05-20 09:32 | PRG ---
DATE OF SERVICE: 05/20/2019 SUBJECTIVE: This morning, he is awake, alert, and responsive. OBJECTIVE: VITAL SIGNS: Saturations are 90% on room air, temperature is 98, blood pressure is 170/81. GENERAL: He is having difficulty breathing. He tells me though he appears to be in no distress. CHEST: No wheezing or crackles. CARDIAC: Normal S1, S2. No gallops. ABDOMEN: No masses. ASSESSMENT: Aspiration pneumonia. PLAN: He appears to be much improved. Clearly, he can be transferred out of the ICU. Switch him to some oral medication in the next 24 to 48 hours. PT, supportive care. So far, cultures are negative. Job ID: [id number]
[2019-05-20] MEDS: predniSONE 20 MG TAB PO SCH (10:09)
[2019-05-20] MEDS: Carvedilol 6.25 MG TAB PO SCH ×2 (10:09→16:38)
[2019-05-20] MEDS: Cefepime 1 GM in Sodium Chloride 0.9% 100 ML IVPB SCH (10:09)
[2019-05-20] MEDS: Divalproex Sodium 125 mg Sprinkle Capsule PO SCH ×2 (10:11→20:51)
[2019-05-20] MEDS: Furosemide 20 MG TAB PO SCH (10:12)
[2019-05-20] MEDS: metroNIDAZOLE 500 MG TAB PO SCH ×3 (10:13→20:50)
[2019-05-20] MEDS: Lisinopril 10 MG TAB PO SCH ×2 (10:13→20:50)
[2019-05-20] MEDS ORDERED: Amlodipine 5 MG TAB PO SCH (15:00)
[2019-05-20] MEDS: Warfarin Sodium 7.5 MG TAB PO SCH (16:37)
--- NOTE | 2019-05-20 18:43 | PDOC.HOSPP ---
- Subjective Subjective: 83 y/o male with throat cancer s/p radiation associated with dyphagia, CKD, CAD , CHF and prior DVT admitted due to AMS and hypoxia. Found to have right lung base infiltrate consistent with apiration pneumonia and was started on antimicrobial and oxygen with improvement. Was confused and agitated with aggressiveness hence with restraints. Calmer with spouse around but still confused. No fever since admission. - Objective Vital Signs & Weight: Vital Signs (12 hours) Temp Pulse BP Pulse Ox 05/20/19 16:38 145/78 H 05/20/19 16:37 74 145/78 H 05/20/19 16:00 98.8 F 05/20/19 11:31 99.3 F 05/20/19 10:13 175/86 H 05/20/19 10:09 175/86 H 05/20/19 08:00 98.7 F 05/20/19 07:59 95 Weight Weight 201 lb 12.8 oz Most Recent Monitor Data Heart Rate from ECG 66 NIBP 138/68 NIBP BP-Mean 91 Respiration from ECG 17 SpO2 99 I&O: 05/19/19 05/20/19 05/21/19 06:59 06:59 06:59 Intake Total 200 830 Balance 200 830 Result Diagrams: 05/19/19 04:53 05/19/19 04:53 ROS - Review of Systems All systems: All other ROS were reviewed and found negative. - Medication Medications: Active Medications Generic Name Dose Route Start Last Admin Trade Name Freq PRN Reason Stop Dose Admin Acetaminophen 650 mg 05/18/19 18:49 05/19/19 11:40 Tylenol PO 650 mg Q4H PRN Administration Headache/Fever/Mild Pain (1-3) Atorvastatin Calcium 40 mg 05/18/19 21:00 05/19/19 19:49 Lipitor PO 40 mg HS DAVID Administration Carvedilol 6.25 mg 05/19/19 08:00 05/20/19 16:38 Coreg PO 6.25 mg BID-WM DAVID Administration Divalproex Sodium 375 mg 05/19/19 21:00 05/20/19 10:11 Depakote Sprinkle PO 375 mg BID DAVID Administration Famotidine 20 mg 05/19/19 21:00 05/19/19 19:49 Pepcid SLOW IVP 20 mg 2100 DAVID Administration Furosemide 20 mg 05/19/19 09:00 05/20/19 10:12 Lasix PO 20 mg DAILY DAVID Administration Lisinopril 10 mg 05/18/19 21:00 05/20/19 10:13 Zestril PO 10 mg BID DAVID Administration Metronidazole 500 mg 05/19/19 15:00 05/20/19 16:38 Flagyl PO 500 mg TID DAVID Administration Prednisone 20 mg 05/20/19 08:00 05/20/19 10:09 Prednisone PO 05/25/19 08:01 20 mg QAM-WM DAVID Administration Warfarin Sodium 7.5 mg 05/19/19 17:00 05/20/19 16:37 Coumadin PO 7.5 mg 1700 DAVID Administration - Exam awake alert Eye: anicteric sclera ENT: normocephalic atraumatic, moist mucosa Heart: RRR Respiratory: no wheezes, no rales, no ronchi (Fair air entry bilaterally) Gastrointestinal: soft, non-tender, non-distended, normal bowel sounds Neurological: CN's grossly intact (Awake, oriented to self. Some confusion noted ) Hosp A/P (1) Acute respiratory failure with hypoxia Code(s): J96.01 - ACUTE RESPIRATORY FAILURE WITH HYPOXIA Status: Acute (2) MARIA (acute kidney injury) Code(s): N17.9 - ACUTE KIDNEY FAILURE, UNSPECIFIED Status: Acute (3) CKD (chronic kidney disease) stage 3, GFR 30-59 ml/min Code(s): N18.3 - CHRONIC KIDNEY DISEASE, STAGE 3 (MODERATE) Status: Acute (4) Seizure Code(s): R56.9 - UNSPECIFIED CONVULSIONS Status: Acute (5) Aspiration pneumonia Code(s): J69.0 - PNEUMONITIS DUE TO INHALATION OF FOOD AND VOMIT Status: Acute (6) Chronic anticoagulation Code(s): Z79.01 - CARE HOME (CURRENT) USE OF ANTICOAGULANTS Status: Chronic (7) Dementia Code(s): F03.90 - UNSPECIFIED DEMENTIA WITHOUT BEHAVIORAL DISTURBANCE Status: Chronic Qualifiers: Dementia type: Alzheimer's disease Alzheimer's disease onset: unspecified onset Dementia behavioral disturbance: without behavioral disturbance Qualified Code(s): G30.9 - Alzheimer's disease, unspecified; F02.80 - Dementia in other diseases classified elsewhere without behavioral disturbance (8) Hypertension Code(s): I10 - ESSENTIAL (PRIMARY) HYPERTENSION Status: Chronic Qualifiers: Hypertension type: essential hypertension Qualified Code(s): I10 - Essential (primary) hypertension (9) Oropharyngeal dysphagia Code(s): R13.12 - DYSPHAGIA, OROPHARYNGEAL PHASE Status: Chronic (10) Acute encephalopathy Code(s): G93.40 - ENCEPHALOPATHY, UNSPECIFIED Status: Resolved (11) Chronic systolic (congestive) heart failure Code(s): I50.22 - CHRONIC SYSTOLIC (CONGESTIVE) HEART FAILURE Status: Acute - Plan DC IV antibiotics. Add oral cefdinir to oral flagyl. Continue other supportive care. Get CBC and CMP in the am. Dysphagic diet as tolerated. Transfer to medical floor.
[2019-05-20] MEDS: Cefdinir 300 MG CAP PO SCH (20:50)
[2019-05-20] MEDS: Atorvastatin Calcium 40 MG TAB PO SCH (20:50)
[2019-05-20] MEDS: Famotidine/PF 20 mg/2ml Vial SLOW IVP SCH (20:50)
[2019-05-21 05:17] LABS: #Basophils 0.1 thou/uL (0.0-0.2); #Eosinphils 0.1 thou/uL (0.0-0.7); #Lymphocytes 2.4 thou/uL (1.20-3.40); #Neutrophils 7.7 thou/uL (1.40-6.50); %Basophils 0.6 % (0.0-1.0); %Eosinophils 0.6 % (0.0-10.0); %Lymphocytes 21.4 % (21.0-51.0); %Monocytes 8.5 % (0.0-10.0); %Neutrophils 68.8 % (42.0-75.0); Hemoglobin 12.4 g/dL (14.0-18.0); Mean Corpuscular HGB CONC 34.2 g/dL (32.0-36.0); Mean Corpuscular Hemoglobin 31.5 pg (27.0-31.0); Mean Corpuscular Volume 92.2 fL (78.0-98.0); Mean Platelet Volume 10.3 fL (7.4-10.4); Platelet Count 142 thou/uL (130-400); RBC Distribution Width 15.3 % (11.5-14.5); Red Blood Cell (RBC) Count 3.94 mill/uL (4.70-6.10); White Blood Cell (WBC) Count 11.2 thou/uL (4.8-10.8)
[2019-05-21 05:24] LABS: INR-International Normal Ratio 1.6; Prothrombin Time 19.1 SEC (12.0-14.7)
[2019-05-21 05:42] LABS: ALT (SGPT) 10 U/L (8-55); AST (SGOT) 15 U/L (5-34); Albumin 3.1 g/dL (3.4-4.8); Alkaline Phosphatase 70 U/L (40-150); Anion Gap 10 mmol/L (10-20); BUN (Urea Nitrogen) 20 mg/dL (8.4-25.7); Calc. Creatinine Clearance 66 mL/min (70-130); Calcium 8.8 mg/dL (7.8-10.44); Carbon Dioxide 30 mmol/L (23-31); Chloride 104 mmol/L (98-107); Estimated GFR-MDRD 66; Globulin 2.6 g/dL (2.4-3.5); Glucose 101 mg/dL (83-110); Potassium 3.4 mmol/L (3.5-5.1); Protein, Total 5.7 g/dL (5.8-8.1); Sodium 141 mmol/L (136-145)
[2019-05-21] MEDS: Cefdinir 300 MG CAP PO SCH ×2 (08:37→21:09)
[2019-05-21] MEDS: Amlodipine 5 MG TAB PO SCH (08:38)
[2019-05-21] MEDS: Divalproex Sodium 125 mg Sprinkle Capsule PO SCH ×2 (08:38→21:09)
[2019-05-21] MEDS: Lisinopril 10 MG TAB PO SCH ×2 (08:39→21:09)
[2019-05-21] MEDS: Carvedilol 6.25 MG TAB PO SCH ×2 (08:39→17:19)
[2019-05-21] MEDS: metroNIDAZOLE 500 MG TAB PO SCH ×3 (08:39→21:09)
[2019-05-21] MEDS: Furosemide 20 MG TAB PO SCH (08:39)
[2019-05-21] MEDS: predniSONE 20 MG TAB PO SCH (08:39)
--- NOTE | 2019-05-21 13:10 | PDOC.HOSPP ---
- Subjective Subjective: Patient seen and examined, no new issues - Objective Vital Signs & Weight: Vital Signs (12 hours) Temp Pulse BP Pulse Ox 05/21/19 11:36 98.8 F 05/21/19 08:39 145/78 H 05/21/19 08:38 75 145/78 H 05/21/19 08:00 95 05/21/19 07:33 98.2 F 05/21/19 03:32 98.9 F Weight Weight 201 lb 12.8 oz Most Recent Monitor Data Heart Rate from ECG 73 NIBP 149/77 NIBP BP-Mean 101 Respiration from ECG 20 SpO2 96 I&O: 05/20/19 05/21/19 05/22/19 06:59 06:59 06:59 Intake Total 830 60 Balance 830 60 Result Diagrams: 05/21/19 04:33 05/21/19 04:33 ROS - Review of Systems All systems: All other ROS were reviewed and found negative. - Medication Medications: Active Medications Generic Name Dose Route Start Last Admin Trade Name Freq PRN Reason Stop Dose Admin Acetaminophen 650 mg 05/18/19 18:49 05/19/19 11:40 Tylenol PO 650 mg Q4H PRN Administration Headache/Fever/Mild Pain (1-3) Amlodipine Besylate 5 mg 05/21/19 09:00 05/21/19 08:38 Norvasc PO 5 mg DAILY DAVID Administration Atorvastatin Calcium 40 mg 05/18/19 21:00 05/20/19 20:50 Lipitor PO 40 mg HS DAVID Administration Carvedilol 6.25 mg 05/19/19 08:00 05/21/19 08:39 Coreg PO 6.25 mg BID-WM DAVID Administration Cefdinir 300 mg 05/20/19 21:00 05/21/19 08:37 Omnicef PO 300 mg BID DAVID Administration Divalproex Sodium 375 mg 05/19/19 21:00 05/21/19 08:38 Depakote Sprinkle PO 375 mg BID DAVID Administration Famotidine 20 mg 05/19/19 21:00 05/20/19 20:50 Pepcid SLOW IVP 20 mg 2100 DAVID Administration Furosemide 20 mg 05/19/19 09:00 05/21/19 08:39 Lasix PO 20 mg DAILY DAVID Administration Lisinopril 10 mg 05/18/19 21:00 05/21/19 08:39 Zestril PO 10 mg BID DAVID Administration Metronidazole 500 mg 05/19/19 15:00 05/21/19 08:39 Flagyl PO 500 mg TID DVAID Administration Prednisone 20 mg 05/20/19 08:00 05/21/19 08:39 Prednisone PO 05/25/19 08:01 20 mg QAM-WM DAVID Administration Warfarin Sodium 7.5 mg 05/19/19 17:00 05/20/19 16:37 Coumadin PO 7.5 mg 1700 DAVID Administration - Exam NAD, awake alert Eye: PERRL, anicteric sclera ENT: normocephalic atraumatic Neck: supple, symmetric Heart: RRR, no murmur, no gallops Respiratory: CTAB, no wheezes Gastrointestinal: soft Extremities: no cyanosis, no clubbing Neurological: CN's grossly intact Hosp A/P (1) CKD (chronic kidney disease) stage 3, GFR 30-59 ml/min Code(s): N18.3 - CHRONIC KIDNEY DISEASE, STAGE 3 (MODERATE) Status: Acute (2) Chronic systolic (congestive) heart failure Code(s): I50.22 - CHRONIC SYSTOLIC (CONGESTIVE) HEART FAILURE Status: Acute (3) Aspiration pneumonia Code(s): J69.0 - PNEUMONITIS DUE TO INHALATION OF FOOD AND VOMIT Status: Acute (4) Anxiety and depression Code(s): F41.9 - ANXIETY DISORDER, UNSPECIFIED; F32.9 - MAJOR DEPRESSIVE DISORDER, SINGLE EPISODE, UNSPECIFIED Status: Chronic (5) Gout Code(s): M10.9 - GOUT, UNSPECIFIED Status: Chronic Qualifiers: Gout site: unspecified site (6) Hypertension Code(s): I10 - ESSENTIAL (PRIMARY) HYPERTENSION Status: Chronic Qualifiers: Hypertension type: essential hypertension Qualified Code(s): I10 - Essential (primary) hypertension - Plan - cont current plan of care - no changes
[2019-05-21] MEDS: Warfarin Sodium 7.5 MG TAB PO SCH (17:23)
--- NOTE | 2019-05-21 18:15 | PRG ---
DATE OF SERVICE: 05/21/2019 SUBJECTIVE: Mr. Montana is afebrile. OBJECTIVE: VITAL SIGNS: Heart rate in the 70s; blood pressure 186/82; respiratory rate in the teens; oximetry is 92% on room air, 96% on a cannula. LUNGS: Clear. HEART: Regular rhythm. ABDOMEN: Soft. His mental status according to his has improved dramatically. IMPRESSION: 1. Pneumonia. 2. Dementia with decompensation with his pneumonia. 3. History of throat cancer. 4. History of aspiration. 5. History of tracheostomy. Overall, he is stable to move out of the intermediate care unit. Job ID: [id number]
[2019-05-21] MEDS: Atorvastatin Calcium 40 MG TAB PO SCH (21:09)
[2019-05-21] MEDS: Acetaminophen 325 MG TAB PO PRN (21:10)
[2019-05-21] MEDS: Famotidine/PF 20 mg/2ml Vial SLOW IVP SCH (21:10)
[2019-05-22 06:00] LABS: #Basophils 0.1 thou/uL (0.0-0.2); #Eosinphils 0.1 thou/uL (0.0-0.7); #Lymphocytes 2.6 thou/uL (1.20-3.40); #Monocytes 0.9 thou/uL (0.11-0.59); #Neutrophils 5.8 thou/uL (1.40-6.50); %Basophils 0.8 % (0.0-1.0); %Eosinophils 0.8 % (0.0-10.0); %Lymphocytes 27.7 % (21.0-51.0); %Monocytes 9.9 % (0.0-10.0); %Neutrophils 60.8 % (42.0-75.0); Hemoglobin 13.4 g/dL (14.0-18.0); Mean Corpuscular HGB CONC 33.2 g/dL (32.0-36.0); Mean Corpuscular Volume 93.5 fL (78.0-98.0); Mean Platelet Volume 10.2 fL (7.4-10.4); Platelet Count 156 thou/uL (130-400); RBC Distribution Width 15.6 % (11.5-14.5); Red Blood Cell (RBC) Count 4.31 mill/uL (4.70-6.10); White Blood Cell (WBC) Count 9.5 thou/uL (4.8-10.8)
[2019-05-22 06:05] LABS: Prothrombin Time 22.1 SEC (12.0-14.7)
[2019-05-22 06:23] LABS: ALT (SGPT) 13 U/L (8-55); AST (SGOT) 15 U/L (5-34); Albumin 3.2 g/dL (3.4-4.8); Alkaline Phosphatase 70 U/L (40-150); Anion Gap 11 mmol/L (10-20); BUN (Urea Nitrogen) 20 mg/dL (8.4-25.7); Bilirubin, Total 0.8 mg/dL (0.2-1.2); Calc. Creatinine Clearance 60 mL/min (70-130); Carbon Dioxide 30 mmol/L (23-31); Chloride 104 mmol/L (98-107); Estimated GFR-MDRD 60; Globulin 2.7 g/dL (2.4-3.5); Glucose 96 mg/dL (83-110); Potassium 3.7 mmol/L (3.5-5.1); Protein, Total 5.9 g/dL (5.8-8.1); Sodium 141 mmol/L (136-145)
[2019-05-22] MEDS: Divalproex Sodium 125 mg Sprinkle Capsule PO SCH ×2 (08:07→20:17)
[2019-05-22] MEDS: metroNIDAZOLE 500 MG TAB PO SCH ×3 (08:08→20:17)
[2019-05-22] MEDS: Amlodipine 5 MG TAB PO SCH (08:08)
[2019-05-22] MEDS: Furosemide 20 MG TAB PO SCH (08:08)
[2019-05-22] MEDS: Lisinopril 10 MG TAB PO SCH ×2 (08:08→20:17)
[2019-05-22] MEDS: Cefdinir 300 MG CAP PO SCH ×2 (08:08→20:17)
[2019-05-22] MEDS: predniSONE 20 MG TAB PO SCH (08:09)
[2019-05-22] MEDS: Carvedilol 6.25 MG TAB PO SCH ×2 (08:09→18:13)
--- NOTE | 2019-05-22 12:20 | PDOC.HOSPP ---
- Subjective Subjective: Patient seen and examined, no new issues. at bedside, all questions answered. - Objective Vital Signs & Weight: Vital Signs (12 hours) Temp Pulse Resp BP BP Pulse Ox 05/22/19 10:39 94 L 05/22/19 08:09 174/60 H 05/22/19 08:08 56 L 174/60 H 05/22/19 08:00 91 L 05/22/19 07:37 98.4 F 56 L 21 H 174/60 H 95 05/22/19 04:00 98.7 F 55 L 15 174/68 H 94 L Weight Weight 201 lb 12.8 oz Most Recent Monitor Data Heart Rate from ECG 73 NIBP 149/77 NIBP BP-Mean 101 Respiration from ECG 20 SpO2 96 I&O: 05/21/19 05/22/19 05/23/19 06:59 06:59 06:59 Intake Total 60 540 200 Balance 60 540 200 Result Diagrams: 05/22/19 05:32 05/22/19 05:32 ROS - Review of Systems All systems: All other ROS were reviewed and found negative. - Medication Medications: Active Medications Generic Name Dose Route Start Last Admin Trade Name Freq PRN Reason Stop Dose Admin Acetaminophen 650 mg 05/18/19 18:49 05/21/19 21:10 Tylenol PO 650 mg Q4H PRN Administration Headache/Fever/Mild Pain (1-3) Amlodipine Besylate 5 mg 05/21/19 09:00 05/22/19 08:08 Norvasc PO 5 mg DAILY DAVID Administration Atorvastatin Calcium 40 mg 05/18/19 21:00 05/21/19 21:09 Lipitor PO 40 mg HS DAVID Administration Carvedilol 6.25 mg 05/19/19 08:00 05/22/19 08:09 Coreg PO 6.25 mg BID-WM DAVID Administration Cefdinir 300 mg 05/20/19 21:00 05/22/19 08:08 Omnicef PO 300 mg BID DAVID Administration Divalproex Sodium 375 mg 05/19/19 21:00 05/22/19 08:07 Depakote Sprinkle PO 375 mg BID DAVID Administration Famotidine 20 mg 05/19/19 21:00 05/21/19 21:10 Pepcid SLOW IVP 20 mg 2100 DAVID Administration Furosemide 20 mg 05/19/19 09:00 05/22/19 08:08 Lasix PO 20 mg DAILY DAVID Administration Lisinopril 10 mg 05/18/19 21:00 05/22/19 08:08 Zestril PO 10 mg BID DAVID Administration Metronidazole 500 mg 05/19/19 15:00 05/22/19 08:08 Flagyl PO 500 mg TID DAVID Administration Prednisone 20 mg 05/20/19 08:00 05/22/19 08:09 Prednisone PO 05/25/19 08:01 20 mg QAM-WM DAVID Administration Warfarin Sodium 7.5 mg 05/19/19 17:00 05/21/19 17:23 Coumadin PO 7.5 mg 1700 DAVID Administration - Exam NAD Eye: PERRL ENT: normocephalic atraumatic Neck: supple, symmetric Heart: RRR, no murmur, no gallops Respiratory: CTAB, no wheezes, no rales Gastrointestinal: soft, non-tender, non-distended Extremities: no cyanosis, no clubbing Skin: normal turgor Hosp A/P (1) CKD (chronic kidney disease) stage 3, GFR 30-59 ml/min Code(s): N18.3 - CHRONIC KIDNEY DISEASE, STAGE 3 (MODERATE) Status: Acute (2) Chronic systolic (congestive) heart failure Code(s): I50.22 - CHRONIC SYSTOLIC (CONGESTIVE) HEART FAILURE Status: Acute (3) Aspiration pneumonia Code(s): J69.0 - PNEUMONITIS DUE TO INHALATION OF FOOD AND VOMIT Status: Acute (4) Anxiety and depression Code(s): F41.9 - ANXIETY DISORDER, UNSPECIFIED; F32.9 - MAJOR DEPRESSIVE DISORDER, SINGLE EPISODE, UNSPECIFIED Status: Chronic (5) Gout Code(s): M10.9 - GOUT, UNSPECIFIED Status: Chronic Qualifiers: Gout site: unspecified site (6) Hypertension Code(s): I10 - ESSENTIAL (PRIMARY) HYPERTENSION Status: Chronic Qualifiers: Hypertension type: essential hypertension Qualified Code(s): I10 - Essential (primary) hypertension - Plan - cont current plan of care - no changes - vitals stable - will consult CM for hospice/palliation information, request - case and plan d/w patient's at length, she understood and agreed with this plan.
[2019-05-22] MEDS: Warfarin Sodium 7.5 MG TAB PO SCH (18:13)
--- NOTE | 2019-05-22 19:12 | PRG ---
DATE OF SERVICE: 05/22/2019 SUBJECTIVE: Kevin Montana has no complaints. OBJECTIVE: VITAL SIGNS: He is afebrile. Heart rate 64, respiratory rate 16, oximetry is 96, blood pressure 158/85. LUNGS: Clear. HEART: Regular rhythm. ABDOMEN: Soft. IMPRESSION: 1. Pneumonia, clinically doing well. His says he is back to his baseline functional level of dementia. 2. History of throat cancer. 3. History of aspiration. 4. History of tracheostomy. He is doing well on enteral antibiotics. Job ID: [id number]
[2019-05-22] MEDS: Atorvastatin Calcium 40 MG TAB PO SCH (20:17)
[2019-05-22] MEDS: Famotidine/PF 20 mg/2ml Vial SLOW IVP SCH (20:18)
[2019-05-22] MEDS: Acetaminophen 325 MG TAB PO PRN (20:18)
[2019-05-23 07:28] LABS: INR-International Normal Ratio 2.3; Prothrombin Time 25.4 SEC (12.0-14.7)
[2019-05-23] MEDS: Cefdinir 300 MG CAP PO SCH ×2 (08:41→22:22)
[2019-05-23] MEDS: Amlodipine 5 MG TAB PO SCH (08:41)
[2019-05-23] MEDS: Lisinopril 10 MG TAB PO SCH ×2 (08:42→22:23)
[2019-05-23] MEDS: Furosemide 20 MG TAB PO SCH (08:43)
[2019-05-23] MEDS: Carvedilol 6.25 MG TAB PO SCH ×2 (08:43→17:06)
[2019-05-23] MEDS: Divalproex Sodium 125 mg Sprinkle Capsule PO SCH ×2 (08:43→22:22)
[2019-05-23] MEDS: metroNIDAZOLE 500 MG TAB PO SCH ×3 (08:43→22:22)
[2019-05-23] MEDS: predniSONE 20 MG TAB PO SCH (08:43)
[2019-05-23] MEDS: Acetaminophen 325 MG TAB PO PRN (09:56)
--- NOTE | 2019-05-23 11:28 | PQF ---
CLINICAL DOCUMENTATION IMPROVEMENT CLARIFICATION FORM: ICD-10 Updated PLEASE DO AN ADDENDUM TO THE PROGRESS NOTE WITH ANY DOCUMENTATION UPDATES OR ADDITIONS AND CARRY THROUGH TO DC SUMMARY. THANK YOU. DATE: 05/23/2019; 05/24/2019 ATTN: Dr. Atkinson Please exercise your independent, professional judgment in responding to the clarification form. Clinical indicators are provided on the bottom of this form for your review Please check appropriate box(s) to clarify if the following diagnosis has been ruled in or ruled out: SEPSIS . [ x ] Ruled in diagnosis [ ] Continue to treat [ x ] Resolved [ ] Ruled out diagnosis [ ] Cannot rule out diagnosis [ ] Other diagnosis [ ] Unable to determine In addition, please specify: Present on Admission (POA): [ x ] Yes [ ] No [ ] Unable to determine For continuity of documentation, please document condition throughout progress notes and discharge summary. Thank You. CLINICAL INDICATORS - SIGNS / SYMPTOMS / LABS H&P 05/18: White count 21.5 Acute hypoxic respiratory failure secondary to pneumonia. Sepsis. The pt dropped his BP in the ED related to this infection consistent with sepsis along with his significantly elevated white blood cell count. RISKS: H&P: 83 yo pt who lives at Nursing Facility. Hx of throat cancer with radiation and associated dysphagia. Acute hypoxic respiratory failure 2/2 pneumonia. TREATMENT: Order 05/18-05/20:Levaquin 750mg IV Order 05/19-05/20: Cefepime 1 gm IV Q 12 hr MAR:Order 05/20: Omnicef 300 mg po BID MAR: Order 05/19: Flagyl 500 mg po TID Thank you, Jackie (This form is maintained as a part of the permanent medical record) 2014 [employer]. All Rights Reserved Jackie Cuba RN, BSN [email or web address] Office: [phone] [facility]
--- NOTE | 2019-05-23 12:04 | PRG ---
DATE OF SERVICE: 05/23/2019 SUBJECTIVE: He is doing reasonably well. His says he is sleeping a lot. He did eat breakfast this morning, but was not interested in eating lunch. OBJECTIVE: VITAL SIGNS: Temperature is 98.7, pulse 68, blood pressure 159/71, and O2 saturation 96%. HEENT: Unremarkable. NECK: Old tracheostomy site well healed. LUNGS: Clear. CARDIAC: S1 and S2. Regular. ABDOMEN: Soft. EXTREMITIES: No edema. ASSESSMENT: 1. Pneumonia. 2. History of throat cancer. 3. History of aspiration. PLAN: He has been switched to oral antibiotics. He is probably near his baseline and plans needed to be made regarding his discharge. No further Pulmonary/Critical Care issues. We will sign off. Job ID: [id number]
[2019-05-23] MEDS ORDERED: Amlodipine 5 MG TAB PO SCH (14:00)
--- NOTE | 2019-05-23 14:21 | PDOC.HOSPP ---
- Subjective Subjective: 83 y/o male with throat cancer s/p radiation associated with dyphagia, CKD, CAD , CHF and prior DVT admitted due to AMS and hypoxia. Found to have right lung base infiltrate consistent with apiration pneumonia and was started on antimicrobial and oxygen with improvement. Calmer. tolerating dysphagic diet. - Objective Vital Signs & Weight: Vital Signs (12 hours) Temp Pulse Resp BP BP Pulse Ox 05/23/19 12:00 98.6 F 64 18 118/63 96 05/23/19 08:43 159/71 H 05/23/19 08:42 159/71 H 05/23/19 08:41 65 05/23/19 08:00 98.7 F 68 20 192/71 H 96 05/23/19 03:58 98.6 F 55 L 16 145/67 H 99 Weight Weight 201 lb 12.8 oz Most Recent Monitor Data Heart Rate from ECG 73 NIBP 149/77 NIBP BP-Mean 101 Respiration from ECG 20 SpO2 96 I&O: 05/22/19 05/23/19 05/24/19 06:59 06:59 06:59 Intake Total 540 982 120 Balance 540 982 120 Result Diagrams: 05/22/19 05:32 05/22/19 05:32 ROS - Review of Systems All systems: All other ROS were reviewed and found negative. - Medication Medications: Active Medications Generic Name Dose Route Start Last Admin Trade Name Freq PRN Reason Stop Dose Admin Acetaminophen 650 mg 05/18/19 18:49 05/23/19 09:56 Tylenol PO 650 mg Q4H PRN Administration Headache/Fever/Mild Pain (1-3) Atorvastatin Calcium 40 mg 05/18/19 21:00 05/22/19 20:17 Lipitor PO 40 mg HS DAVID Administration Carvedilol 6.25 mg 05/19/19 08:00 05/23/19 08:43 Coreg PO 6.25 mg BID-WM DAVID Administration Cefdinir 300 mg 05/20/19 21:00 05/23/19 08:41 Omnicef PO 300 mg BID DAVID Administration Divalproex Sodium 375 mg 05/19/19 21:00 05/23/19 08:43 Depakote Sprinkle PO 375 mg BID DAVID Administration Famotidine 20 mg 05/19/19 21:00 05/22/19 20:18 Pepcid SLOW IVP 20 mg 2100 DAVID Administration Furosemide 20 mg 05/19/19 09:00 05/23/19 08:43 Lasix PO 20 mg DAILY DAVID Administration Lisinopril 10 mg 05/18/19 21:00 05/23/19 08:42 Zestril PO 10 mg BID DAVID Administration Metronidazole 500 mg 05/19/19 15:00 05/23/19 08:43 Flagyl PO 500 mg TID DAVID Administration Prednisone 20 mg 05/20/19 08:00 05/23/19 08:43 Prednisone PO 05/25/19 08:01 20 mg QAM-WM DAVID Administration Warfarin Sodium 7.5 mg 05/19/19 17:00 05/22/19 18:13 Coumadin PO 7.5 mg 1700 DAVID Administration - Exam awake alert Eye: anicteric sclera ENT: normocephalic atraumatic, moist mucosa Neck: supple, no JVD Heart: RRR, murmur present (soft systolic murmur) Respiratory: no wheezes, no ronchi (fair air entry bilaterally with no crackles. ) Gastrointestinal: soft, non-tender, non-distended, normal bowel sounds Extremities: no edema Neurological: CN's grossly intact, no focal deficits (oriented to self and place at least.) Hosp A/P (1) Acute respiratory failure with hypoxia Code(s): J96.01 - ACUTE RESPIRATORY FAILURE WITH HYPOXIA Status: Acute (2) MARIA (acute kidney injury) Code(s): N17.9 - ACUTE KIDNEY FAILURE, UNSPECIFIED Status: Acute (3) CKD (chronic kidney disease) stage 3, GFR 30-59 ml/min Code(s): N18.3 - CHRONIC KIDNEY DISEASE, STAGE 3 (MODERATE) Status: Acute (4) Seizure Code(s): R56.9 - UNSPECIFIED CONVULSIONS Status: Acute (5) Aspiration pneumonia Code(s): J69.0 - PNEUMONITIS DUE TO INHALATION OF FOOD AND VOMIT Status: Acute (6) Chronic anticoagulation Code(s): Z79.01 - DIRECTOR OF CONTENT AND PROGRAMMING (CURRENT) USE OF ANTICOAGULANTS Status: Chronic (7) Dementia Code(s): F03.90 - UNSPECIFIED DEMENTIA WITHOUT BEHAVIORAL DISTURBANCE Status: Chronic Qualifiers: Dementia type: Alzheimer's disease Alzheimer's disease onset: unspecified onset Dementia behavioral disturbance: without behavioral disturbance Qualified Code(s): G30.9 - Alzheimer's disease, unspecified; F02.80 - Dementia in other diseases classified elsewhere without behavioral disturbance (8) Hypertension Code(s): I10 - ESSENTIAL (PRIMARY) HYPERTENSION Status: Chronic Qualifiers: Hypertension type: essential hypertension Qualified Code(s): I10 - Essential (primary) hypertension (9) Oropharyngeal dysphagia Code(s): R13.12 - DYSPHAGIA, OROPHARYNGEAL PHASE Status: Chronic (10) Acute encephalopathy Code(s): G93.40 - ENCEPHALOPATHY, UNSPECIFIED Status: Resolved (11) Chronic systolic (congestive) heart failure Code(s): I50.22 - CHRONIC SYSTOLIC (CONGESTIVE) HEART FAILURE Status: Acute - Plan Increase amlodipine to 10 mg daily to get adequate BP contyrol. Continue oral antibiotics and other treatments. Placement in progress.
[2019-05-23] MEDS: Warfarin Sodium 7.5 MG TAB PO SCH (17:05)
[2019-05-23] MEDS: Atorvastatin Calcium 40 MG TAB PO SCH (22:23)
[2019-05-23] MEDS: Famotidine/PF 20 mg/2ml Vial SLOW IVP SCH (22:24)
[2019-05-24 05:31] LABS: #Eosinphils 0.1 thou/uL (0.0-0.7); #Lymphocytes 2.3 thou/uL (1.20-3.40); #Monocytes 0.9 thou/uL (0.11-0.59); #Neutrophils 5.9 thou/uL (1.40-6.50); %Basophils 0.5 % (0.0-1.0); %Eosinophils 0.6 % (0.0-10.0); %Lymphocytes 25.1 % (21.0-51.0); %Monocytes 10.1 % (0.0-10.0); %Neutrophils 63.6 % (42.0-75.0); Mean Corpuscular HGB CONC 32.3 g/dL (32.0-36.0); Mean Corpuscular Hemoglobin 30.5 pg (27.0-31.0); Mean Corpuscular Volume 94.5 fL (78.0-98.0); Mean Platelet Volume 9.8 fL (7.4-10.4); Platelet Count 167 thou/uL (130-400); RBC Distribution Width 15.6 % (11.5-14.5); Red Blood Cell (RBC) Count 4.58 mill/uL (4.70-6.10); White Blood Cell (WBC) Count 9.3 thou/uL (4.8-10.8)
[2019-05-24 05:35] LABS: INR-International Normal Ratio 3.1; Prothrombin Time 31.6 SEC (12.0-14.7)
[2019-05-24 05:52] LABS: ALT (SGPT) 13 U/L (8-55); AST (SGOT) 16 U/L (5-34); Albumin 3.2 g/dL (3.4-4.8); Alkaline Phosphatase 67 U/L (40-150); Anion Gap 11 mmol/L (10-20); BUN (Urea Nitrogen) 26 mg/dL (8.4-25.7); Bilirubin, Total 0.7 mg/dL (0.2-1.2); Calc. Creatinine Clearance 64 mL/min (70-130); Carbon Dioxide 32 mmol/L (23-31); Chloride 103 mmol/L (98-107); Estimated GFR-MDRD 64; Globulin 2.8 g/dL (2.4-3.5); Glucose 94 mg/dL (83-110); Potassium 3.7 mmol/L (3.5-5.1); Sodium 142 mmol/L (136-145)
[2019-05-24 08:08] VITALS: BP 178/63; TEMP 98.3
[2019-05-24] MEDS: Lisinopril 10 MG TAB PO SCH (08:26)
[2019-05-24] MEDS: Carvedilol 6.25 MG TAB PO SCH (08:26)
[2019-05-24] MEDS: Cefdinir 300 MG CAP PO SCH (08:26)
[2019-05-24] MEDS: Furosemide 20 MG TAB PO SCH (08:26)
[2019-05-24] MEDS: predniSONE 20 MG TAB PO SCH (08:27)
[2019-05-24] MEDS: metroNIDAZOLE 500 MG TAB PO SCH (08:27)
[2019-05-24] MEDS: Divalproex Sodium 125 mg Sprinkle Capsule PO SCH (08:27)
[2019-05-24] MEDS ORDERED: Amlodipine 10 MG TAB PO SCH (09:00)
[2019-05-24] MEDS ORDERED: Lisinopril 10 MG TAB PO SCH ×2 (10:00→21:00)
--- NOTE | 2019-05-24 13:16 | DIS ---
DATE OF ADMISSION: 05/18/2019 DATE OF DISCHARGE: 05/24/2019 PRIMARY CARE PHYSICIAN: Dr. Maximus Young. DISCHARGE DIAGNOSES: 1. Acute respiratory failure with hypoxia. 2. Aspiration pneumonia. 3. Acute encephalopathy. 4. Oropharyngeal dysphagia. 5. Seizure disorder. 6. Acute kidney injury. 7. Chronic kidney disease stage 3. 8. Chronic systolic heart failure. 9. Hypertension. 10. Dementia. 11. Chronic anticoagulation with Coumadin. 12. Chronic debility (the patient is bed and wheelchair-bound). 13. Sepsis CONSULTS: Pulmonary and Critical Care. HOSPITAL COURSE: An 83-year-old male patient, long-term senior living resident with chronic debility, who is wheelchair bound. The patient has history of throat cancer, status post radiation associated with dysphagia and prior hospitalizations for aspiration and aspiration pneumonia, CKD, coronary artery disease, congestive heart failure, and prior DVT, who was admitted from the senior living due to acute mental status change and hypoxia. Evaluation with image showed right lung base infiltrate consistent with aspiration pneumonia. The patient was started on antimicrobial therapy as well as oxygen supplementation with improvement. Hospital course was complicated by development of acute agitation, which improved with recommencement of usual home medication and some sedatives. Chronic anticoagulation was continued. The patient also was found to have elevation in blood pressure necessitating upward titration of his antihypertensives with better BP control. The patient also was seen by Speech, who on evaluation confirmed previously noted oropharyngeal aspiration and further discussion with the family led to adjustment of diet to dysphagic diet, nectar thick and puree consistency with no straw. The patient remained stable and was subsequently discharged back to the senior living. PHYSICAL EXAMINATION: VITAL SIGNS: Temperature 98.3, pulse 69, respiratory rate 20, SpO2 of 95% on 2 L nasal cannula, blood pressure is 178/63. GENERAL: Comfortable, elderly male, in no distress. Afebrile. Anicteric. Acyanotic. HEENT: Normocephalic, atraumatic. Oral mucosa is moist. CARDIOVASCULAR: Regular rhythm and rate with normal heart sounds. RESPIRATORY: Fair air entry bilaterally with few transmitted sounds. No use of accessory muscles appreciated. GI: Full, soft, nontender, nondistended with normal bowel sounds. EXTREMITIES: Grossly normal looking, atraumatic with no edema, erythema, or cyanosis. NEUROLOGIC: Conscious and alert. The patient is oriented to person at least. He is conversational. Cranial nerves 2 through 12 are grossly intact. The patient moves all extremities but weakly. DISCHARGE DISPOSITION: [facility]. DISCHARGE CONDITION: Improved. FOLLOWUP: Follow up with PCP in 7 days. DISCHARGE MEDICATIONS: See discharge med rec. TIME SPENT: This discharge took more than 35 minutes. Job ID: [id number] [facility]
--- NOTE | 2019-05-24 15:40 | EKG ---
Test Reason : Blood Pressure : / mmHG Vent. Rate : 084 BPM Atrial Rate : 084 BPM P-R Int : 180 ms QRS Dur : 070 ms QT Int : 340 ms P-R-T Axes : 023 -13 043 degrees QTc Int : 401 ms Sinus rhythm with occasional atrial-paced complexes and Premature atrial complexes Minimal voltage criteria for LVH, may be normal variant Inferior infarct , age undetermined No STEMI Abnormal ECG Confirmed by KATERIN Ga, JOSE ([id number]), school photograph editor JOVON LAMB ([id number]) on 05/24/2019 3:40:49 PM Referred By: MD CONKLIN Confirmed By:JOSE CONKLIN M.D.
--- NOTE | 2019-05-25 10:25 | PDOC.HOSPP ---
- Objective Vital Signs & Weight: Weight Weight 201 lb 12.8 oz Most Recent Monitor Data Heart Rate from ECG 73 NIBP 149/77 NIBP BP-Mean 101 Respiration from ECG 20 SpO2 96 I&O: 05/24/19 05/25/19 05/26/19 06:59 06:59 06:59 Intake Total 320 100 Balance 320 100 Result Diagrams: 05/24/19 04:53 05/24/19 04:53 Hosp A/P (1) Acute respiratory failure with hypoxia Code(s): J96.01 - ACUTE RESPIRATORY FAILURE WITH HYPOXIA Status: Acute (2) MARIA (acute kidney injury) Code(s): N17.9 - ACUTE KIDNEY FAILURE, UNSPECIFIED Status: Acute (3) CKD (chronic kidney disease) stage 3, GFR 30-59 ml/min Code(s): N18.3 - CHRONIC KIDNEY DISEASE, STAGE 3 (MODERATE) Status: Acute (4) Seizure Code(s): R56.9 - UNSPECIFIED CONVULSIONS Status: Acute (5) Aspiration pneumonia Code(s): J69.0 - PNEUMONITIS DUE TO INHALATION OF FOOD AND VOMIT Status: Acute (6) Chronic anticoagulation Code(s): Z79.01 - CORRECTION (CURRENT) USE OF ANTICOAGULANTS Status: Chronic (7) Dementia Code(s): F03.90 - UNSPECIFIED DEMENTIA WITHOUT BEHAVIORAL DISTURBANCE Status: Chronic Qualifiers: Dementia type: Alzheimer's disease Alzheimer's disease onset: unspecified onset Dementia behavioral disturbance: without behavioral disturbance Qualified Code(s): G30.9 - Alzheimer's disease, unspecified; F02.80 - Dementia in other diseases classified elsewhere without behavioral disturbance (8) Hypertension Code(s): I10 - ESSENTIAL (PRIMARY) HYPERTENSION Status: Chronic Qualifiers: Hypertension type: essential hypertension Qualified Code(s): I10 - Essential (primary) hypertension (9) Oropharyngeal dysphagia Code(s): R13.12 - DYSPHAGIA, OROPHARYNGEAL PHASE Status: Chronic (10) Acute encephalopathy Code(s): G93.40 - ENCEPHALOPATHY, UNSPECIFIED Status: Resolved (11) Chronic systolic (congestive) heart failure Code(s): I50.22 - CHRONIC SYSTOLIC (CONGESTIVE) HEART FAILURE Status: Acute (12) NSTEMI (non-ST elevated myocardial infarction) Code(s): I21.4 - NON-ST ELEVATION (NSTEMI) MYOCARDIAL INFARCTION Status: Acute
== END 2019-05-24 15:29 | DRG 871 ==
LOC: ERS 13:45 → ERHOLD 17:03 → IMCU/EMU 21:33 → T4-B 05-21 14:24
PROVIDERS: ADMIT Internal Medicine; ATTEND Internal Medicine
DX: A41.9 Sepsis, unspecified organism (principal); J69.0 Pneumonitis due to inhalation of food and vomit; J96.01 Acute respiratory failure with hypoxia; I13.0 Hypertensive heart and chronic kidney disease with heart failure and stage 1 through stage 4 chronic kidney disease, or unspecified chronic kidney disease; N17.9 Acute kidney failure, unspecified; G93.40 Encephalopathy, unspecified; I50.22 Chronic systolic (congestive) heart failure; M19.90 Unspecified osteoarthritis, unspecified site; R65.20 Severe sepsis without septic shock; F03.90 Unspecified dementia, unspecified severity, without behavioral disturbance, psychotic disturbance, mood disturbance, and anxiety; M10.9 Gout, unspecified; I25.10 Atherosclerotic heart disease of native coronary artery without angina pectoris; N40.0 Benign prostatic hyperplasia without lower urinary tract symptoms; G40.901 Epilepsy, unspecified, not intractable, with status epilepticus; F41.9 Anxiety disorder, unspecified; F32.9 Major depressive disorder, single episode, unspecified; R13.12 Dysphagia, oropharyngeal phase; N18.3 Chronic kidney disease, stage 3 (moderate); I73.9 Peripheral vascular disease, unspecified; K21.9 Gastro-esophageal reflux disease without esophagitis; I25.2 Old myocardial infarction; Z90.49 Acquired absence of other specified parts of digestive tract; Z88.0 Allergy status to penicillin; Z88.2 Allergy status to sulfonamides; Z86.73 Personal history of transient ischemic attack (TIA), and cerebral infarction without residual deficits; Z99.3 Dependence on wheelchair; Z74.01 Bed confinement status
CPT/HCPCS: 36415; 51701; 71045; 80048; 80053; 81003; 81015; 83605; 85025; 85610; 87040; 87086; 93005; 94760; 96361; 96365; 96367; J0360; J0692; J1956; J2185; J3370; J3490; J7512; S0028

== ENCOUNTER 2019-07-25 16:16 | Inpatient (IN) | payer MEDICARE, MEDICAID ==
[~2019-07-25 16:16] MED LIST: Heparin 1,000 UNITS/ML VIAL ONE
--- NOTE | 2019-07-25 17:05 | RAD ---
PORTABLE CHEST ONE VIEW: 07/25/2019 4:37 p.m. HISTORY: Cough. COMPARISON: 05/18/2019 FINDINGS: The heart size is stable. There is stable elevation of the left hemidiaphragm. Evidence of old granul omatous disease is redemonstrated. No lobar consolidation, pneumothoraces, hailey pulmonary edema or p leural effusions is seen. IMPRESSION: No acute process. POS: OFF
[2019-07-25 17:13] LABS: #Lymphocytes 0.9 thou/uL (1.20-3.40); #Monocytes 2.1 thou/uL (0.11-0.59); #Neutrophils 13.1 thou/uL (1.40-6.50); %Eosinophils 0.2 % (0.0-10.0); %Lymphocytes 5.7 % (21.0-51.0); %Monocytes 12.7 % (0.0-10.0); %Neutrophils 81.3 % (42.0-75.0); Hemoglobin 12.8 g/dL (14.0-18.0); Mean Corpuscular HGB CONC 34.1 g/dL (32.0-36.0); Mean Corpuscular Hemoglobin 31.6 pg (27.0-31.0); Mean Corpuscular Volume 92.6 fL (78.0-98.0); Mean Platelet Volume 9.5 fL (7.4-10.4); Platelet Count 147 thou/uL (130-400); RBC Distribution Width 13.8 % (11.5-14.5); Red Blood Cell (RBC) Count 4.07 mill/uL (4.70-6.10); White Blood Cell (WBC) Count 16.1 thou/uL (4.8-10.8)
[2019-07-25 17:20] LABS: INR-International Normal Ratio 1.7; PTT 36.1 SEC (22.9-36.1); Prothrombin Time 19.5 SEC (12.0-14.7)
--- NOTE | 2019-07-25 17:34 | CT ---
CT Brain WO Con History: Altered mental status Comparison: CT brain October 2018 Findings: Markedly ventriculomegaly, unchanged from the comparison exam. Severe atrophy. Extra-axial CSF space cyst left parietal calvarium is similar. No midline shift. No acute hemorrhage. No acute territorial infarct. Severe periventricular and deep white matter microangiopathic changes. Impression: Severe chronic changes. No acute intracranial abnormality.
[2019-07-25 17:40] LABS: ALT (SGPT) 12 U/L (8-55); AST (SGOT) 11 U/L (5-34); Albumin 3.2 g/dL (3.4-4.8); Alkaline Phosphatase 87 U/L (40-110); Anion Gap 11 mmol/L (10-20); BUN (Urea Nitrogen) 26 mg/dL (8.4-25.7); Bilirubin, Total 0.7 mg/dL (0.2-1.2); Calc. Creatinine Clearance 0 mL/min (70-130); Calcium 8.6 mg/dL (7.8-10.44); Carbon Dioxide 28 mmol/L (23-31); Chloride 104 mmol/L (98-107); Estimated GFR-MDRD 61; Globulin 3.2 g/dL (2.4-3.5); Glucose 144 mg/dL (83-110); Potassium 3.4 mmol/L (3.5-5.1); Protein, Total 6.4 g/dL (5.8-8.1); Sodium 140 mmol/L (136-145)
[2019-07-25 17:55] LABS: CKMB 0.7 ng/mL (0-6.6)
[2019-07-25 18:25] LABS: Bilirubin Small (Negative); Blood, Urine Moderate (Negative); Glucose, Urine (Dipstick) Negative (Negative); Leukocyte Small (Negative); Nitrite Negative (Negative); Protein, Urine (Dipstick) > or equal to 300 mg/dL (Neg-Trace)
[2019-07-25 18:29] LABS: Clarity Cloudy (Clear)
[2019-07-25 18:40] LABS: RBC/HPF Greater than 50 HPF (0-3); WBC/HPF Greater Than 50 HPF (0-3)
[2019-07-25 18:41] LABS: Bacteria/HPF 4+ HPF (None Seen); Squamous Epithelial 0-3 HPF (0-3)
[2019-07-25] MEDS ORDERED: Enoxaparin Sodium 80 MG/0.8 ML SYRINGE ONE (19:38)
[2019-07-25] MEDS ORDERED: Cefepime 2 GM VIAL ONE (20:06)
[2019-07-25 21:16] LABS: Troponin I 0.123 ng/mL (< 0.028)
[2019-07-25] MEDS ORDERED: Vancomycin HCl 1.5 GM in Sodium Chloride 0.9% 250 ML 300 ML IVPB SCH (21:30)
[2019-07-25 23:33] LABS: Troponin I 0.126 ng/mL (< 0.028)
[2019-07-26 01:18] VITALS: BMI 28.0
[2019-07-26] MEDS ORDERED: Senokot S 8.6-50 MG TAB PO PRN (11:38)
[2019-07-26] MEDS ORDERED: Bisacodyl 10 MG SUPP PR PRN (11:38)
[2019-07-26] MEDS ORDERED: Acetaminophen 650 MG Suppository PR PRN (11:38)
[2019-07-26] MEDS ORDERED: Ondansetron PF 4 MG/2 ML Vial IVP PRN (11:38)
[2019-07-26] MEDS ORDERED: Guaifenesin DM 100-10/5 ML UDCUP PO PRN (11:38)
[2019-07-26] MEDS: Sodium Chloride 0.9% 1,000 ML IV SCH (12:37)
--- NOTE | 2019-07-26 12:44 | HP ---
REASON FOR ADMISSION: Sepsis, UTI, acute metabolic encephalopathy. HISTORY OF PRESENTING ILLNESS: Please note majority of this history is obtained by talking to the patient's , Ms. Drea Brown and [facility] records and prior medical records as the patient is not fully oriented. He does not know why he is brought here to the hospital. Per , the patient had a fever of 101 degrees at the [facility] yesterday evening. He was also agitated and not responding to questions. They gave him a shower which kind of settled him a little bit and he started to sweat with fever coming down, but the patient started back with agitation. This concerned the staff at [facility] and the patient was brought to emergency room. No complaints of cough or expectoration. The patient does not know if he has any burning urination or increased frequency, but he knows that they took his urine to check for bladder infection. 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 PERSONAL HISTORY: Does not abuse alcohol or drugs. No history of smoking. He is currently a resident of [facility]. FAMILY HISTORY: Mother at the age of 85. Father at the age of 76. Had 3 brothers, all of them are . Has a sister with leukemia and coronary artery disease. ALLERGIES: DOXYCYCLINE, PENICILLIN, AND SULFA. CURRENT MEDICATIONS: Per [facility] records, the patient is on: 1. Aspirin 81 mg p.o. daily. 2. Lisinopril 10 mg twice daily. 3. Coumadin 5 and 10 mg per protocol. 4. Allopurinol 300 mg p.o. daily. 5. Gabapentin 800 mg p.o. twice daily. 6. Trazodone 50 mg p.o. at bedtime. 7. Norvasc 10 mg daily. 8. Atorvastatin 40 mg p.o. daily. 9. Coreg 6.25 mg twice daily. 10. Depakote 125 mg twice daily. 11. Lasix 20 mg daily. 12. Melatonin 3 mg p.o. at bedtime. 13. MiraLAX 17 g daily. 14. Potassium chloride 10 mEq p.o. daily. 15. Colace 100 mg daily. 16. DuoNebs q.2 hourly p.r.n. CODE STATUS: The patient is a do not attempt to resuscitate. Power of senior attorney is his , Ms. Drea Brown, number to reach her is [phone]. REVIEW OF SYSTEMS: Cannot be obtained as the patient is not oriented. PHYSICAL EXAMINATION: GENERAL: The patient is an 83-year-old male, who is currently not in any acute distress. VITAL SIGNS: Blood pressure 106/54, pulse 86 per minute, respiratory rate 20 per minute, temperature 100 degrees Fahrenheit, and saturating 96% on room air. NECK: Supple. No elevated JVD. HEENT: Eyes; extraocular muscles intact. Pupils are reacting to light. Oral cavity, mucous membranes are dry. No exudates or congestion. CARDIOVASCULAR SYSTEM: S1 and S2 heard, regular rhythm. RESPIRATORY SYSTEM: Air entry 1+ bilateral. No rales or rhonchi. ABDOMEN: Soft. Bowel sounds heard. No tenderness, rigidity, or guarding. EXTREMITIES: Mild peripheral edema. No calf tenderness. VASCULAR SYSTEM: Peripheral pulses 1+ bilateral. No ischemic ulcerations or gangrene. CENTRAL NERVOUS SYSTEM: The patient is not oriented, but responds to verbal questions. He does not seem to remember much. No gross focal deficits noted. The patient is lethargic, but moves all extremities. PSYCHIATRIC SYSTEM: No obvious hallucinations or delusions. LABORATORY DATA: CT of brain without contrast done shows severe periventricular and deep white matter microangiopathic changes. No acute intracranial abnormality. No bleed or acute territorial infarct seen. Chest x-ray portable done shows no acute process. UA is positive for UTI. Preliminary blood cultures drawn yesterday have not grown any organism so for. Albumin is 3.2, BUN 26, creatinine 1.1, serum glucose 144. Liver enzymes within normal limits. Potassium is 3.4. PT/INR 19.5 and 1.7, PTT 36. White count of 16, hemoglobin and hematocrit of 12 and 37, platelet count 147 with 81% neutrophils and MCV 92. CLINICAL IMPRESSION AND PLAN: The patient will be admitted to medical floor for sepsis, urinary tract infection, acute metabolic encephalopathy. He also appears to be moderately dehydrated. We will gently hydrate him with normal saline at 60 mL/hour. The patient has received a liter of IV fluid in the ER. He has gotten a dose of vancomycin, cefepime, and Levaquin in the ER. We will continue him on Levaquin and vancomycin for now. We will await urine culture results. The patient is slowly coming around per , who is here at bedside. He was agitated and confused totally yesterday, but he is responding to questions at present and is slowly coming around. I have discussed code status with her and she wants him to be a do not attempt to resuscitate. We will continue Norvasc, aspirin, allopurinol , Lipitor, Coreg, gabapentin, melatonin, trazodone, and Coumadin as before. He will be on pureed and Coumadin prudent diet. Overall prognosis is guarded given age of 83, underlying severe white matter ischemic disease, prior cancer, and being a [facility] resident with underlying dementia as well. Job ID: [id number] [facility]
[2019-07-26] MEDS: Warfarin Sodium 7.5 MG TAB PO SCH (18:40)
[2019-07-26] MEDS: Famotidine 20 MG TAB PO SCH (20:47)
[2019-07-26] MEDS: Gabapentin 400 MG CAP PO SCH (20:47)
[2019-07-26] MEDS: Melatonin 3 MG TAB PO SCH (20:48)
[2019-07-26] MEDS: traZODone HCl 50 MG TAB PO SCH (20:48)
[2019-07-26] MEDS: Carvedilol 6.25 MG TAB PO SCH (20:48)
[2019-07-26] MEDS ORDERED: FLU VACC TS2019-20(65YR UP)/PF 180 MCG/0.5 ML SYRINGE IM ONE (21:00)
[2019-07-26] MEDS ORDERED: Prevnar 13-Val Conj/PF 0.5 ML SYRINGE IM ONE (21:00)
[2019-07-26] MEDS ORDERED: Vancomycin HCl 1 GM in Premix Bag 1 BAG IVPB SCH (21:00)
[2019-07-26] MEDS ORDERED: Vancomycin HCl 1.25 GM in Sodium Chloride 0.9% 250 ML 250 ML IVPB SCH (22:00)
[2019-07-27] MEDS: Acetaminophen 325 MG TAB PO PRN (00:28)
[2019-07-27 06:12] LABS: Prothrombin Time 22.6 SEC (12.0-14.7)
[2019-07-27 06:17] LABS: #Lymphocytes 0.8 thou/uL (1.20-3.40); #Monocytes 1.5 thou/uL (0.11-0.59); %Basophils 0.1 % (0.0-1.0); %Eosinophils 0.2 % (0.0-10.0); %Lymphocytes 6.8 % (21.0-51.0); %Monocytes 11.9 % (0.0-10.0); Hemoglobin 10.4 g/dL (14.0-18.0); Mean Corpuscular HGB CONC 33.9 g/dL (32.0-36.0); Mean Corpuscular Hemoglobin 31.8 pg (27.0-31.0); Mean Corpuscular Volume 93.6 fL (78.0-98.0); Mean Platelet Volume 10.3 fL (7.4-10.4); Platelet Count 117 thou/uL (130-400); RBC Distribution Width 13.7 % (11.5-14.5); Red Blood Cell (RBC) Count 3.27 mill/uL (4.70-6.10); White Blood Cell (WBC) Count 12.4 thou/uL (4.8-10.8)
[2019-07-27 06:27] LABS: Anion Gap 11 mmol/L (10-20); BUN (Urea Nitrogen) 22 mg/dL (8.4-25.7); Calc. Creatinine Clearance 56 mL/min (70-130); Calcium 8.1 mg/dL (7.8-10.44); Carbon Dioxide 27 mmol/L (23-31); Chloride 108 mmol/L (98-107); Estimated GFR-MDRD 59; Glucose 112 mg/dL (83-110); Potassium 3.2 mmol/L (3.5-5.1); Sodium 143 mmol/L (136-145)
[2019-07-27] MEDS: Docusate 100 MG CAP PO SCH (08:41)
[2019-07-27] MEDS: Polyethylene Glycol 3350 17 GM Packet PO SCH (08:41)
[2019-07-27] MEDS: Atorvastatin Calcium 40 MG TAB PO SCH (08:41)
[2019-07-27] MEDS: Famotidine 20 MG TAB PO SCH ×2 (08:41→20:12)
[2019-07-27] MEDS: Carvedilol 6.25 MG TAB PO SCH ×2 (08:41→20:08)
[2019-07-27] MEDS: Allopurinol 300 MG TAB PO SCH (08:41)
[2019-07-27] MEDS: Amlodipine 10 MG TAB PO SCH (08:41)
[2019-07-27] MEDS: Aspirin 81 mg Enteric Coated Tablet PO SCH (08:41)
[2019-07-27] MEDS: Sodium Chloride 0.9% 1,000 ML IV SCH ×2 (08:46→23:47)
[2019-07-27] MEDS: Gabapentin 400 MG CAP PO SCH ×2 (09:57→20:12)
[2019-07-27] MEDS: MEROPENEM 1 GM/50 ML 1 GM in Premix Bag 1 BAG IVPB SCH ×2 (09:57→21:51)
[2019-07-27] MEDS ORDERED: Meropenem 1 GM in Sodium Chloride 0.9% 100 ML IVPB SCH (10:00)
--- NOTE | 2019-07-27 11:00 | PRG ---
DATE OF SERVICE: 07/27/2019 SUBJECTIVE: The patient is seen and examined at the bedside. He is quite slow to respond, but he follows my commands. OBJECTIVE: VITAL SIGNS: Blood pressure is 119/64, pulse is 52, temperature is 97.7, O2 saturation is 98% on room air, and respiratory rate is around 20. HEENT: His pupils are responding to light properly. Sclerae are nonicteric. Conjunctivae are pinkish. Oral mucosa is slightly dry. NECK: Supple. LUNGS: Clear. HEART: S1 and S2, normal. No S3. No S4. Somewhat irregular. ABDOMEN: Soft, nontender, nondistended. EXTREMITIES: No clubbing, cyanosis, or edema. NEUROLOGIC: He follows my commands. He is alert and oriented x0. He is able to move his all 4 extremities. LABORATORY DATA: Labs showed white count of 12.4, hemoglobin of 10.4, hematocrit 30.6, platelet count is 117,000. INR 2.0, sodium 143, potassium 3.2, chloride 108, CO2 of 27, BUN 22, creatinine 1.18, glucose 112, and calcium 8.1. Troponin 0.126. Microbiology, urine culture is growing E coli, which is very resistant to most antibiotics, but sensitive to meropenem, Zosyn, gentamicin, cefoxitin, and amikacin. IMPRESSION: 1. Sepsis, most likely urinary tract infection is the source. 2. Urinary tract infection with E coli, which is multiresistant pathogen. We are going to switch his antibiotics to meropenem. 3. Acute metabolic encephalopathy, improved. 4. Hypokalemia for supplementation. 5. History of aspiration pneumonia. 6. Dementia. 7. History of transient ischemic attacks. 8. 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 9. Peripheral vascular disease, chronic, stable. 10. Hypertension, chronic, stable. 11. Glaucoma. 12. BPH. 13. Osteoarthritis. 14. History of seizure disorder. 15. History of anxiety and depression. 16. Bowel and bladder incontinence. 17. Coronary artery disease, chronic, stable. 18. History of pulmonary embolism. PLAN: To switch his antibiotics from Levaquin and vancomycin to meropenem. Continue his warfarin. His INR is 2.0 this morning. We will also continue his gabapentin, carvedilol, atorvastatin, amlodipine, aspirin, and Tylenol p.r.n. for fever/pain. We will get PT and OT to work with him. Job ID: [id number]
[2019-07-27] MEDS: Warfarin Sodium 10 MG TAB PO SCH (18:11)
[2019-07-27] MEDS: traZODone HCl 50 MG TAB PO SCH (20:10)
[2019-07-27] MEDS: Melatonin 3 MG TAB PO SCH (20:10)
[2019-07-28 06:27] LABS: INR-International Normal Ratio 2.1; Prothrombin Time 23.4 SEC (12.0-14.7)
[2019-07-28] MEDS: Gabapentin 400 MG CAP PO SCH ×2 (10:16→20:20)
[2019-07-28] MEDS: Aspirin 81 mg Enteric Coated Tablet PO SCH (10:16)
[2019-07-28] MEDS: Allopurinol 300 MG TAB PO SCH (10:17)
[2019-07-28] MEDS: Famotidine 20 MG TAB PO SCH ×2 (10:17→20:20)
[2019-07-28] MEDS: Amlodipine 10 MG TAB PO SCH (10:17)
[2019-07-28] MEDS: Docusate 100 MG CAP PO SCH (10:17)
[2019-07-28] MEDS: Carvedilol 6.25 MG TAB PO SCH ×2 (10:20→20:20)
[2019-07-28] MEDS: Polyethylene Glycol 3350 17 GM Packet PO SCH (10:20)
[2019-07-28] MEDS: Atorvastatin Calcium 40 MG TAB PO SCH (10:20)
[2019-07-28] MEDS ORDERED: Divalproex Sodium 250 MG (DR) TAB PO SCH ×2 (11:15→21:00)
[2019-07-28] MEDS: MEROPENEM 1 GM/50 ML 1 GM in Premix Bag 1 BAG IVPB SCH ×2 (11:46→21:55)
[2019-07-28] MEDS ORDERED: Valproate Sodium 250 mg/5 ml UD Cup PO SCH (14:30)
--- NOTE | 2019-07-28 14:50 | CT ---
Exam: Chest CT scan without IV contrast: Abdomen and pelvic CT scan without IV contrast: HISTORY: Cough, dementia, fever, urinary tract infection. Admitted for sepsis. COMPARISON: Chest CT scan 02/01/2019 FINDINGS: Small left pleural effusion with some elevation of the left hemidiaphragm with some minimal chronic a ppearing pleural-based parenchymal changes in the left chest and less so in the right base evidence for pleural thickening or chronic subsegmental atelectasis. Old right-sided granulomatous calcificati ons. No evidence for pneumonia. No mediastinal mass or adenopathy. 3 vessel coronary calcific disease. In the abdomen there is a contracted gallbladder with some heterogeneous increased attenuation densit y, nonspecific possibly representing sludge or faint stones which is a new appearance of compared to the prior study. Small stable liver cyst. Pancreas spleen adrenal glands are unremarkable. Bilateral renal cysts up to 6.8 cm on the left side as well as a 2.6 cm diameter left renal mass which has some mixed attenuation. This could potentially represent a complicated hemorrhagic cyst or partially calcified cyst or a mixed attenuati on complex mass. Depending upon concern, nonemergent follow-up CT with renal mass protocol with and without contrast might be of benefit. No evidence for ascites or abnormal fluid collection or abscess within the abdomen or pelvis. There is some abnormal rectal wall thickening, evidence for nonspecific proctitis. Bilateral fat-containing hernias. Enlarged prostate gland. Normal-appearing ap pendix. Lumbar spine spondylosis with postoperative changes of the lower lumbar spine. IMPRESSION: Abnormal wall thickening of the rectum evidence for nonspecific proctitis. Somewhat contracted gallbl adder with heterogeneous attenuation, possibly gallstones versus sludge without overt pericholecystic edema or fat stranding. Incompletely characterized mass in the left kidney as above. Numerous other findings as above.
--- NOTE | 2019-07-28 15:08 | CON ---
DATE OF CONSULTATION: 07/28/2019 REASON FOR CONSULTATION: Fever, possible UTI. HISTORY OF PRESENT ILLNESS: An 83-year-old, whom I had seen in the past for other issues and now has developed worsening cognitive dysfunction. He has been admitted to retirement. At this time, the perceived altered mental status and flushing of the face with perception of warm skin and possible fever in the [facility] and EMS brought the patient to the hospital. There had been some cough. Recently, his regimen for dietary intake has been changed to soft mechanical diet by the speech therapist at the retirement. On arrival, his BP was 108/55, pulse 85, respirations 20, temperature 100, and O2 saturation was 96%. He was oriented to person only, which is usual baseline. Remainder aspect of the examination was not particularly remarkable. His initial labs with a white cell count 16,000, hemoglobin 12, platelets 147. INR 1.7. Chemistry with creatinine 1.14. Liver profile normal. Albumin 3.2. Troponin 0.097. Urinalysis with greater than 50 wbc's. The patient had a brain CT, which was not remarkable and the chest x-ray with no acute process. The patient has been given initial antimicrobial therapy treatment with levofloxacin, cefepime, and vancomycin and subsequently was switched about 2 days later to meropenem after cultures were received, which identified resistant strain of E coli. The patient had T-max of 103 on July 27. Currently, he is lying on his right lateral position. is in the room with him. Has had no diarrhea, not much in terms of respiratory symptoms. He is nonambulatory, pretty much stays in the wheelchair all day long. PAST MEDICAL HISTORY: Dementia, gout, dysphagia, TIA, prior pulmonary embolism, laminectomy, CHF, and coronary artery disease with prior VT. SURGICAL HISTORY: Hemorrhoidectomy, throat cancer with resection, reverse tracheostomy, radiation therapy, and gastrostomy tube placement and removal. SOCIAL HISTORY: Lives in [facility]. No smoking history reported. ALLERGIES: DOXYCYCLINE, PENICILLIN, AND SULFA DRUGS. FAMILY HISTORY: Noncontributory. CURRENT MEDICATIONS: 1. Tylenol. 2. Zyloprim. 3. Norvasc. 4. Ecotrin. 5. Lipitor. 6. Dulcolax. 7. Coreg. 8. Meropenem. PHYSICAL EXAMINATION: VITAL SIGNS: He has been afebrile for the past 24 hours. BP 150/61, pulse 76, respirations 18 to 20, and O2 saturation 92%. SKIN: Shows areas of hyperpigmentation in lower extremities. He has peripheral IV access and is voiding in the diaper. No lymphadenopathy. HEENT: Ocular movements conjugate. Sclerae white. Oral cavity with no remarkable findings. Still has quite a few teeth in place with some decay. NECK: Supple to all directions. No jugular vein distention. LUNGS: Symmetric air entry. HEART: S1 and S2. Regular rate without murmurs. ABDOMEN: Soft, not distended or tender. No ascites. No bladder distention. EXTREMITIES: No joint inflammatory activity. He is weak in all 4 extremities. He has some atrophy of interosseous muscles. Plantar responses are indifferent. He does not establish eye contact. He follows commands and mumbles unintelligible sounds. LABORATORY DATA: The latest white cell count 12.4, hemoglobin 10.4, platelets 117,000. Creatinine is 1.18. GFR is 59, potassium 3.2. Urinalysis has been noted above and microbiology as well. Blood culture, no growth in 48 hours. ASSESSMENT: 1. Dementia. 2. Previous pulmonary embolism, on Coumadin. 3. Fever, abnormal urinalysis. DISCUSSION: The differential diagnosis includes BPH with urinary obstruction and in a retention with cystitis and possible pyelonephritis. Bacteremia has not been detected yet. Obstructive uropathy needs to be ruled out as well as retention of urine. The other possibility would be respiratory tract complication in view of his prior episodes of swallowing difficulty, which required dietary modification. He is already on treatment for prior thromboembolism, so we do not have to worry about that. No evidence of other intraabdominal inflammatory process or bone and joint inflammatory process either. Check CT chest, abdomen, and pelvis without contrast. Continue meropenem. Probably, we will need a PICC line placement and meropenem for at least 10 to 14 days. If findings are significant in the CT scan, then we will have to address them particularly in reference to possibility of urinary tract obstruction or pneumonia. Job ID: [id number]
[2019-07-28] MEDS: Sodium Chloride 0.9% 1,000 ML IV SCH (15:50)
[2019-07-28] MEDS: Warfarin Sodium 7.5 MG TAB PO SCH (15:50)
--- NOTE | 2019-07-28 16:34 | PDOC.HOSPP ---
- Subjective Encounter Date: 07/28/19 Encounter Time: 09:00 Subjective: Pt seen for followup re: sepsis. Denies chest pain, shortness of breath, fevers or chills. - Objective Vital Signs & Weight: Vital Signs (12 hours) Temp Pulse Resp BP BP Pulse Ox 07/28/19 10:20 151/65 H 07/28/19 10:17 76 151/65 H 07/28/19 08:00 98.9 F 80 20 168/69 H 92 L 07/28/19 05:34 98.2 F 98 18 172/72 H 92 L Weight Weight 190 lb 4.8 oz I&O: 07/27/19 07/28/19 07/29/19 06:59 06:59 06:59 Intake Total 735 790 Output Total 1 Balance 739 789 Result Diagrams: 07/27/19 05:17 07/27/19 05:17 Additional Labs: Labs and MARs reviewed by vt Hospitalist ROS - Review of Systems Cardiovascular: denies: chest pain, palpitations, orthopnea, paroxysmal noc. dyspnea, edema, light headedness Gastrointestinal: denies: nausea, vomiting, abdominal pain, diarrhea, constipation, melena, hematochezia - Medication Medications: Active Medications Generic Name Dose Route Start Last Admin Trade Name Freq PRN Reason Stop Dose Admin Acetaminophen 650 mg 07/26/19 11:38 07/27/19 00:28 Tylenol PO 650 mg Q4H PRN Administration Headache/Fever/Mild Pain (1-3) Allopurinol 300 mg 07/27/19 09:00 07/28/19 10:17 Zyloprim PO 300 mg DAILY DAVID Administration Amlodipine Besylate 10 mg 07/27/19 09:00 07/28/19 10:17 Norvasc PO 10 mg DAILY DAVID Administration Aspirin 81 mg 07/27/19 09:00 07/28/19 10:16 Ecotrin PO 81 mg DAILY DAVID Administration Atorvastatin Calcium 40 mg 07/27/19 09:00 07/28/19 10:20 Lipitor PO 40 mg DAILY DAVID Administration Carvedilol 6.25 mg 07/26/19 21:00 07/28/19 10:20 Coreg PO 6.25 mg BID DAVID Administration Docusate Sodium 100 mg 07/27/19 09:00 07/28/19 10:17 Colace PO 100 mg DAILY DAVID Administration Famotidine 20 mg 07/26/19 21:00 07/28/19 10:17 Pepcid PO 20 mg BID DAVID Administration Gabapentin 800 mg 07/26/19 21:00 07/28/19 10:16 Neurontin PO 800 mg BID DAVID Administration Sodium Chloride 1,000 mls @ 60 mls/hr 07/26/19 11:45 07/28/19 15:50 Normal Saline 0.9% IV 1,000 mls .[id number] DAVID Administration Meropenem 1 gm/ Device 50 mls @ 200 mls/hr 07/27/19 10:00 07/28/19 11:46 IVPB 50 mls 1000,2200 DAVID Administration Melatonin 3 mg 07/26/19 21:00 07/27/19 20:10 Melatonin PO Not Given HS DAVID Polyethylene Glycol 17 gm 07/27/19 09:00 07/28/19 10:20 Miralax PO 17 gm DAILY DAVID Administration Trazodone HCl 50 mg 07/26/19 21:00 07/27/19 20:10 Desyrel PO Not Given HS DAVID Warfarin Sodium 7.5 mg 07/26/19 17:00 07/28/19 15:50 Coumadin PO 7.5 mg SuMoTuThSa DAVID Administration Warfarin Sodium 10 mg 07/27/19 17:00 07/27/19 18:11 Coumadin PO 10 mg WeFr DAVID Administration - Exam General Appearance: NAD Eye: anicteric sclera ENT: moist mucosa Neck: supple, symmetric Heart: RRR, no rubs Respiratory: CTAB, no wheezes Gastrointestinal: soft, non-tender Neurological: cranial nerve grossly intact Musculoskeletal: no muscle wasting Psychiatric: normal affect, normal behavior Hosp A/P (1) Sepsis Code(s): A41.9 - SEPSIS, UNSPECIFIED ORGANISM Status: Acute (2) UTI (urinary tract infection) Status: Acute Qualifiers: (3) Hypokalemia Code(s): E87.6 - HYPOKALEMIA Status: Acute (4) Acute myocardial infarction Code(s): I21.9 - ACUTE MYOCARDIAL INFARCTION, UNSPECIFIED Status: Acute Qualifiers: Myocardial infarction type: type 2 Qualified Code(s): I21.A1 - Myocardial infarction type 2 (5) Dementia Code(s): F03.90 - UNSPECIFIED DEMENTIA WITHOUT BEHAVIORAL DISTURBANCE Status: Chronic Qualifiers: (6) Gout Code(s): M10.9 - GOUT, UNSPECIFIED Status: Chronic (7) Hypertension Code(s): I10 - ESSENTIAL (PRIMARY) HYPERTENSION Status: Chronic Qualifiers: - Plan plan discussed w/ family, continue antibiotics, out of bed/ambulate Sepsis secondary to UTI from multidrug resistant E. coli. Consult ID for opinion and help with management. Monitor vital signs, titrate antihypertensives as needed. Dementia stable.
[2019-07-28] MEDS: traZODone HCl 50 MG TAB PO SCH (20:20)
[2019-07-28] MEDS: Melatonin 3 MG TAB PO SCH (20:20)
[2019-07-28] MEDS: Acetaminophen 325 MG TAB PO PRN (20:20)
[2019-07-28] MEDS: Valproate Sodium 250 mg/5 ml UD Cup PO SCH (20:23)
[2019-07-29] MEDS: Sodium Chloride 0.9% 1,000 ML IV SCH (00:12)
[2019-07-29 06:54] LABS: #Eosinphils 0.3 thou/uL (0.0-0.7); #Lymphocytes 1.5 thou/uL (1.20-3.40); #Monocytes 0.9 thou/uL (0.11-0.59); #Neutrophils 5.5 thou/uL (1.40-6.50); %Basophils 0.4 % (0.0-1.0); %Eosinophils 3.3 % (0.0-10.0); %Lymphocytes 17.7 % (21.0-51.0); %Monocytes 11.4 % (0.0-10.0); %Neutrophils 67.2 % (42.0-75.0); Hemoglobin 12.6 g/dL (14.0-18.0); Mean Corpuscular HGB CONC 33.8 g/dL (32.0-36.0); Mean Corpuscular Hemoglobin 31.7 pg (27.0-31.0); Mean Corpuscular Volume 93.7 fL (78.0-98.0); Mean Platelet Volume 10.5 fL (7.4-10.4); Platelet Count 129 thou/uL (130-400); RBC Distribution Width 13.8 % (11.5-14.5); Red Blood Cell (RBC) Count 3.98 mill/uL (4.70-6.10); White Blood Cell (WBC) Count 8.2 thou/uL (4.8-10.8)
[2019-07-29 07:00] LABS: INR-International Normal Ratio 2.6; Prothrombin Time 27.3 SEC (12.0-14.7)
[2019-07-29] MEDS: Polyethylene Glycol 3350 17 GM Packet PO SCH (08:23)
[2019-07-29] MEDS: Valproate Sodium 250 mg/5 ml UD Cup PO SCH ×2 (08:23→20:54)
[2019-07-29] MEDS: Atorvastatin Calcium 40 MG TAB PO SCH (08:24)
[2019-07-29] MEDS: Docusate 100 MG CAP PO SCH (08:24)
[2019-07-29] MEDS: Gabapentin 400 MG CAP PO SCH ×2 (08:24→20:54)
[2019-07-29] MEDS: Aspirin 81 mg Enteric Coated Tablet PO SCH (08:24)
[2019-07-29] MEDS: Allopurinol 300 MG TAB PO SCH (08:25)
[2019-07-29] MEDS: Famotidine 20 MG TAB PO SCH ×2 (08:25→20:54)
[2019-07-29] MEDS: Amlodipine 10 MG TAB PO SCH (08:28)
[2019-07-29] MEDS: Carvedilol 6.25 MG TAB PO SCH ×2 (08:28→20:54)
[2019-07-29] MEDS: MEROPENEM 1 GM/50 ML 1 GM in Premix Bag 1 BAG IVPB SCH ×2 (10:52→21:00)
--- NOTE | 2019-07-29 11:08 | CT ---
CT Abdomen W WO Con History: Renal mass protocol to evaluate kidney lesions. Comparison: CT prior day Findings: Moderate layering left pleural effusion. Heart size is enlarged. Pulmonary trunk and pulmon momo arteries are large. Compressive atelectasis left lung base. Multiple left renal cysts. There is a mass inferior pole left kidney which measures 36 Hounsfield uni ts on the precontrast, 80 Hounsfield units on the postcontrast, and 65 Hounsfield units on the delayed phase concerning for malignancy. Mass is nearly completely exophytic measures up to 1.9 cm. Renal cortices are thin. Mild third spacing of fluid. No abnormal enhancing urothelial mass although there is mildly thickened urothelium of the left renal pelvis. There is abnormal peripheral wall thickening of the large exophytic left renal cyst some low-grade pe ripheral enhancement. Small left retroperitoneal periaortic lymph nodes just above the renal arteries measure up to 5 mm in short axis. Numerous small hypodensities of the liver too small fully characterize. Portal vein is patent. Pancre as is unremarkable. Abnormal elevation left hemidiaphragm. Remainder of the findings are unchanged from yesterday's study . Impression: 1. Solid inferior pole left renal mass measuring up to 1.8 cm has imaging characteristics of renal ce ll carcinoma. The mass is greater than 75% exophytic of the anterior cortex. 2. Abnormal wall thickening of a large cyst of the interpolar left kidney along the anterior margin w ith continuity of the cortex. This is is concerning for a cystic renal cell carcinoma. Overall the size of the cyst including the peripheral wall thickening measures 7 cm. 3. Mildly thickened urothelium of the left renal pelvis. This could be sequelae of pyelitis versus le ss likely an infiltrating transitional cell carcinoma.
--- NOTE | 2019-07-29 16:07 | SPC ---
Sonographic guided left upper extremity PICC HISTORY: Urinary tract infection. FINDINGS: After explaining the procedure and answering all questions, the left upper extremity was pr epped and draped in usual sterile fashion. Sterile technique, buffered local anesthesia, sonographic guidance, and a 22-gauge needle were used to carefully access the left basilic vein. Vinod dard technique was used to place the tip of a 5 [place]yanese single lumen PICC so that the tip is at the level of the superior vena cava. Catheter was flushed and secured externally. Fluoroscopy time 0 lesley torin. IMPRESSION: Left upper extremity PICC is ready for use.
[2019-07-29] MEDS: Warfarin Sodium 10 MG TAB PO SCH (17:33)
--- NOTE | 2019-07-29 17:59 | PDOC.HOSPP ---
- Subjective Encounter Date: 07/29/19 Encounter Time: 10:00 Subjective: Pt seen for followup re; UTI. Sleepy but arousable, no complaints. - Objective Vital Signs & Weight: Vital Signs (12 hours) Temp Pulse Resp BP BP Pulse Ox 07/29/19 08:28 61 162/62 H 07/29/19 08:00 98.2 F 65 20 146/75 H 95 Weight Weight 190 lb 4.8 oz I&O: 07/28/19 07/29/19 07/30/19 06:59 06:59 06:59 Intake Total 790 761 Output Total 1 Balance 789 761 Result Diagrams: 07/29/19 06:17 07/27/19 05:17 Additional Labs: Labs and MARs reviewed by id Hospitalist ROS - Review of Systems Cardiovascular: denies: chest pain, palpitations, orthopnea, paroxysmal noc. dyspnea, edema, light headedness Gastrointestinal: denies: nausea, vomiting, abdominal pain, diarrhea, constipation, melena, hematochezia Skin: denies: rash, lesions, margie, bruising - Medication Medications: Active Medications Generic Name Dose Route Start Last Admin Trade Name Freq PRN Reason Stop Dose Admin Acetaminophen 650 mg 07/26/19 11:38 07/28/19 20:20 Tylenol PO 650 mg Q4H PRN Administration Headache/Fever/Mild Pain (1-3) Allopurinol 300 mg 07/27/19 09:00 07/29/19 08:25 Zyloprim PO 300 mg DAILY DAVID Administration Amlodipine Besylate 10 mg 07/27/19 09:00 07/29/19 08:28 Norvasc PO 10 mg DAILY DAVID Administration Aspirin 81 mg 07/27/19 09:00 07/29/19 08:24 Ecotrin PO 81 mg DAILY DAVID Administration Atorvastatin Calcium 40 mg 07/27/19 09:00 07/29/19 08:24 Lipitor PO 40 mg DAILY DAVID Administration Carvedilol 6.25 mg 07/26/19 21:00 07/29/19 08:28 Coreg PO 6.25 mg BID DAVID Administration Docusate Sodium 100 mg 07/27/19 09:00 07/29/19 08:24 Colace PO 100 mg DAILY DAVID Administration Famotidine 20 mg 07/26/19 21:00 07/29/19 08:25 Pepcid PO 20 mg BID DAVID Administration Gabapentin 800 mg 07/26/19 21:00 07/29/19 08:24 Neurontin PO 800 mg BID DAVID Administration Sodium Chloride 1,000 mls @ 60 mls/hr 07/26/19 11:45 07/29/19 00:12 Normal Saline 0.9% IV 1,000 mls .[id number] DAVID Administration Meropenem 1 gm/ Device 50 mls @ 200 mls/hr 07/27/19 10:00 07/29/19 10:52 IVPB 50 mls 1000,2200 DAVID Administration Melatonin 3 mg 07/26/19 21:00 07/28/19 20:20 Melatonin PO 3 mg HS DAVID Administration Polyethylene Glycol 17 gm 07/27/19 09:00 07/29/19 08:23 Miralax PO 17 gm DAILY DAVID Administration Trazodone HCl 50 mg 07/26/19 21:00 07/28/19 20:20 Desyrel PO 50 mg HS DAVID Administration Valproic Acid 375 mg 07/28/19 21:00 07/29/19 08:23 Depakene Liquid PO 375 mg BID DAVID Administration Warfarin Sodium 7.5 mg 07/26/19 17:00 07/28/19 15:50 Coumadin PO 7.5 mg SuMoTuThSa DAVID Administration Warfarin Sodium 10 mg 07/27/19 17:00 07/29/19 17:33 Coumadin PO 10 mg WeFr DAVID Administration - Exam General Appearance: NAD Eye: anicteric sclera ENT: moist mucosa Neck: supple Heart: RRR Respiratory: CTAB, no rales Gastrointestinal: soft, non-tender Extremities: no clubbing Musculoskeletal: no muscle wasting Psychiatric: normal behavior Hosp A/P (1) UTI (urinary tract infection) Status: Acute Qualifiers: (2) Hypokalemia Code(s): E87.6 - HYPOKALEMIA Status: Acute (3) Acute myocardial infarction Code(s): I21.9 - ACUTE MYOCARDIAL INFARCTION, UNSPECIFIED Status: Acute Qualifiers: Myocardial infarction type: type 2 Qualified Code(s): I21.A1 - Myocardial infarction type 2 (4) Dementia Code(s): F03.90 - UNSPECIFIED DEMENTIA WITHOUT BEHAVIORAL DISTURBANCE Status: Chronic Qualifiers: (5) Gout Code(s): M10.9 - GOUT, UNSPECIFIED Status: Chronic (6) Hypertension Code(s): I10 - ESSENTIAL (PRIMARY) HYPERTENSION Status: Chronic Qualifiers: (7) Sepsis Code(s): A41.9 - SEPSIS, UNSPECIFIED ORGANISM Status: Resolved - Plan continue antibiotics, out of bed/ambulate Continue meropenem for UTI from multidrug resistant E. coli. PICC line. Replace potassium. Monitor vital signs, titrate antihypertensives as needed. Dementia stable.
[2019-07-29] MEDS ORDERED: Potassium Chloride 20 MEQ TAB PO SCH (18:15)
[2019-07-29] MEDS: Melatonin 3 MG TAB PO SCH (20:54)
[2019-07-29] MEDS: traZODone HCl 50 MG TAB PO SCH (20:54)
[2019-07-30] MEDS: Sodium Chloride 0.9% 1,000 ML IV SCH ×2 (04:08→18:41)
[2019-07-30 07:45] LABS: INR-International Normal Ratio 3.4; Prothrombin Time 33.7 SEC (12.0-14.7)
[2019-07-30] MEDS: MEROPENEM 1 GM/50 ML 1 GM in Premix Bag 1 BAG IVPB SCH ×2 (10:52→23:03)
[2019-07-30] MEDS: Polyethylene Glycol 3350 17 GM Packet PO SCH (11:14)
[2019-07-30] MEDS: Valproate Sodium 250 mg/5 ml UD Cup PO SCH ×2 (11:14→22:03)
[2019-07-30] MEDS: Aspirin 81 mg Enteric Coated Tablet PO SCH (11:15)
[2019-07-30] MEDS: Famotidine 20 MG TAB PO SCH ×2 (11:15→22:02)
[2019-07-30] MEDS: Gabapentin 400 MG CAP PO SCH ×2 (11:15→22:02)
[2019-07-30] MEDS: Atorvastatin Calcium 40 MG TAB PO SCH (11:15)
[2019-07-30] MEDS: Allopurinol 300 MG TAB PO SCH (11:16)
[2019-07-30] MEDS: Docusate 100 MG CAP PO SCH (11:16)
[2019-07-30] MEDS: Carvedilol 6.25 MG TAB PO SCH ×2 (11:34→22:02)
[2019-07-30] MEDS: Amlodipine 10 MG TAB PO SCH (11:34)
--- NOTE | 2019-07-30 13:21 | PDOC.HOSPP ---
- Subjective Encounter Date: 07/30/19 Encounter Time: 10:00 Subjective: Pt seen for followup re:renal mass. No complaints today. - Objective Vital Signs & Weight: Vital Signs (12 hours) Temp Pulse Resp BP BP Pulse Ox 07/30/19 11:34 65 163/66 H 07/30/19 08:00 95 07/30/19 07:57 98.7 F 68 20 160/64 H 95 Weight Weight 190 lb 4.8 oz I&O: 07/29/19 07/30/19 07/31/19 06:59 06:59 06:59 Intake Total 761 863 Balance 761 863 Result Diagrams: 07/29/19 06:17 07/27/19 05:17 Additional Labs: labs and MARs reviewed by ut Hospitalist ROS - Review of Systems Constitutional: denies: fever, chills, sweats, weakness, malaise Gastrointestinal: denies: nausea, vomiting, abdominal pain, diarrhea, constipation, melena, hematochezia - Medication Medications: Active Medications Generic Name Dose Route Start Last Admin Trade Name Freq PRN Reason Stop Dose Admin Acetaminophen 650 mg 07/26/19 11:38 07/28/19 20:20 Tylenol PO 650 mg Q4H PRN Administration Headache/Fever/Mild Pain (1-3) Allopurinol 300 mg 07/27/19 09:00 07/30/19 11:16 Zyloprim PO 300 mg DAILY DAVID Administration Amlodipine Besylate 10 mg 07/27/19 09:00 07/30/19 11:34 Norvasc PO 10 mg DAILY DAVID Administration Aspirin 81 mg 07/27/19 09:00 07/30/19 11:15 Ecotrin PO 81 mg DAILY DAVID Administration Atorvastatin Calcium 40 mg 07/27/19 09:00 07/30/19 11:15 Lipitor PO 40 mg DAILY DAVID Administration Carvedilol 6.25 mg 07/26/19 21:00 07/30/19 11:34 Coreg PO 6.25 mg BID DAVID Administration Docusate Sodium 100 mg 07/27/19 09:00 07/30/19 11:16 Colace PO 100 mg DAILY DAVID Administration Famotidine 20 mg 07/26/19 21:00 07/30/19 11:15 Pepcid PO 20 mg BID DAVID Administration Gabapentin 800 mg 07/26/19 21:00 07/30/19 11:15 Neurontin PO 800 mg BID DAVID Administration Sodium Chloride 1,000 mls @ 60 mls/hr 07/26/19 11:45 07/30/19 04:08 Normal Saline 0.9% IV 1,000 mls .[id number] DAVID Administration Meropenem 1 gm/ Device 50 mls @ 200 mls/hr 07/27/19 10:00 07/29/19 21:00 IVPB 50 mls 1000,2200 DAVID Administration Melatonin 3 mg 07/26/19 21:00 07/29/19 20:54 Melatonin PO 3 mg HS DAVID Administration Polyethylene Glycol 17 gm 07/27/19 09:00 07/30/19 11:14 Miralax PO 17 gm DAILY DAVID Administration Trazodone HCl 50 mg 07/26/19 21:00 07/29/19 20:54 Desyrel PO 50 mg HS DAVID Administration Valproic Acid 375 mg 07/28/19 21:00 07/30/19 11:14 Depakene Liquid PO 375 mg BID DAVID Administration - Exam General Appearance: NAD Eye: anicteric sclera ENT: moist mucosa Neck: supple Heart: RRR Respiratory: CTAB Gastrointestinal: soft, non-tender Extremities: no cyanosis Psychiatric: normal affect, normal behavior Hosp A/P (1) Renal mass Code(s): N28.89 - OTHER SPECIFIED DISORDERS OF KIDNEY AND URETER Status: Acute (2) UTI (urinary tract infection) Status: Acute Qualifiers: (3) Acute myocardial infarction Code(s): I21.9 - ACUTE MYOCARDIAL INFARCTION, UNSPECIFIED Status: Acute Qualifiers: Myocardial infarction type: type 2 Qualified Code(s): I21.A1 - Myocardial infarction type 2 (4) Dementia Code(s): F03.90 - UNSPECIFIED DEMENTIA WITHOUT BEHAVIORAL DISTURBANCE Status: Chronic Qualifiers: (5) Gout Code(s): M10.9 - GOUT, UNSPECIFIED Status: Chronic (6) Hypertension Code(s): I10 - ESSENTIAL (PRIMARY) HYPERTENSION Status: Chronic Qualifiers: (7) Sepsis Code(s): A41.9 - SEPSIS, UNSPECIFIED ORGANISM Status: Resolved - Plan plan discussed w/ family, continue antibiotics Consult nephrology re: renal mass. Continue meropenem for UTI. PICC line placed. Monitor vital signs, titrate antihypertensives as needed. Dementia stable. updated re; CT findings. Continue warfarin for PE.
--- NOTE | 2019-07-30 16:51 | PRG ---
DATE OF SERVICE: 07/30/2019 SUBJECTIVE: The patient is still not interacting with examiner. OBJECTIVE: VITAL SIGNS: His temperature has been normal since the , blood pressure 160/66, pulse 65. GENERAL: Keeps eyes closed, does not appear in distress. LUNGS: Symmetric, clear breath sounds. HEART: S1 and S2. Regular rate. ABDOMEN: Flat, soft. LABORATORY DATA: White cell count is down to 8.2, hemoglobin 12.6, platelets 129. Creatinine is 1.18. Microbiology with E coli with ESBL phenotype. IMAGING STUDIES: Abdominal CT, the initial one on the with chest CT showed abnormal wall thickening of the rectum and a mass incompletely characterized in the left kidney. The repeat study was done the next day with contrast and it showed a solid left renal mass consistent with renal cell carcinoma and also a large cyst in the left kidney along the anterior margin concerning for cystic renal cell cancer and a markedly thickened urothelium in the left renal pelvis. ASSESSMENT AND DISCUSSION: Dementia, pulmonary embolism history, fever, abnormal urinalysis, and the abnormalities noted on CT scan. The patient will be treated with Invanz and Urology consultation, although not sure he would be eligible for surgical treatment of the lesion noted on CT scan. The initial one on the showed a renal mass and some other less important findings. The repeat scan with contrast on the showed likely renal cell cancer in the inferior pole as well as cystic in the superior pole of the left kidney. the left kidney abnormality suggestive of renal cell cancer in 2 different sites. The patient will continue with IV carbapenem, eventually transitioned to ertapenem. Urology consultation, although he may be probably not a candidate for surgical intervention. We will need PICC line placement for IV ertapenem for another 7 days approximately. Job ID: [id number]
[2019-07-30] MEDS ORDERED: Warfarin Sodium 7.5 MG TAB PO SCH (17:00)
--- NOTE | 2019-07-30 19:39 | CON ---
DATE OF CONSULTATION: 07/30/2019 REASON FOR CONSULTATION: 1. Multiple renal cysts including high-density Bosniak 4 cyst. 2. Recurrent urinary tract infections. HISTORY OF PRESENT ILLNESS: Mr. Kevin Montana is a pleasant 83-year-old white male with a longstanding history of dementia. He was initially cared for by his for about 15 years and later has been in nursing homes. Most recently, he has been in the [facility]. The patient was brought in with what his described as possible urinary tract infection with a subjective fever and now foul smelling urine. The patient has an apparent extended-spectrum E coli UTI and has been evaluated by Dr. Barbosa with regard to that. From a urologic standpoint, the patient previously had benign prostatic hypertrophy and underwent 2 previous transurethral resections of the prostate gland most recently by Dr. Antoine Bowie. The patient was briefly a patient of Dr. Issa Coon after Dr. Bowie's snf. Over the last few years, Mr. Montana has developed increasing frequency of urinary tract infection. He presents on this visit with that as a primary complaint. I am consulted to see the patient though more specifically about some renal cysts, which were present in both left and right kidney. I did review the patient's CT scan of the abdomen and pelvis performed on 07/29/2019, which shows a large cyst, which consisted of multiple cystic nodules on the posterior aspect of the left kidney and an exophytic anteriorly located cyst on the left kidney, which does take a contrast. The anteriorly located cyst, which is approximately mid-kidney is a Bosniak class 4 cyst. The larger cyst is Bosniak class 3 due to multiple septated areas including area of wall thickening. The patient's kidneys showed general overall atrophy from most likely medical renal disease based on age. Mr. 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 The patient was initially PEG tube fed, but has been on thickened liquids over the years and did have 1 aspiration pneumonia episode earlier in the year. PAST MEDICAL HISTORY: 1. 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 2. Aspiration pneumonia. 3. Longstanding dementia probably more than 15 years in duration. 4. History of TIA. 5. 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 6. Peripheral vascular disease. 7. Hypertension. 8. Lymphedema. 9. Glaucoma. 10. Benign prostatic hypertrophy requiring transurethral resection x2. 11. Osteoarthritis. 12. History of hemorrhoids. 13. History of seizure disorder. 14. Depression. 15. Trigeminal neuralgia. 16. Bowel and urinary incontinence. 17. History of skin cancer. 18. Coronary artery disease. 19. Pulmonary embolus. 20. Prior tracheostomy with reversal. 21. Right knee replacement. PAST SURGICAL HISTORY: 1. PEG tube placement. 2. Tracheostomy. 3. Right knee replacement. 4. Transurethral resection of prostate gland. 5. Previous hemorrhoidectomy. SOCIAL HISTORY: Not currently a smoker. No history of alcohol or drug use. FAMILY MEDICAL HISTORY: The patient's mother at age 85, father at age 76. All the patient's brothers are . The patient's is alive and is a partial provider for the patient. There is a sister with leukemia and coronary artery disease. ALLERGIES: DOXYCYCLINE, PENICILLIN, AND SULFA. MEDICATIONS: Complete outpatient medication list, please see the medication reconciliation. PHYSICAL EXAMINATION: VITAL SIGNS: The patient is currently afebrile with temperature 98.7, pulse 65, blood pressure 163/66, O2 saturation on room air is 95%. GENERAL: This is an awake, alert, white male, who is able to answer simple questions for us, but is not a reliable historian. HEAD, EYES, EARS, NOSE, AND THROAT: Extraocular movements are intact. Sclerae anicteric. Oropharynx is clear. NECK: Shows consequences of extensive radiation therapy. There is an old tracheostomy site, which is well healed and closed at the present time. LUNGS: Clear to auscultation bilaterally. CARDIAC: There is regular rate and rhythm. ABDOMEN: Soft and nontender. The patient is relatively cachectic. 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 The foreskin cannot be retracted enough to see the urethral meatus. Testes are present bilaterally in the scrotum. They are smooth, anodular, nontender. Palpation of inguinal canals finds no evidence of inguinal canal hernia. Digital rectal examination finds a post TUR prostate gland irregularity associated with it. It is not particularly tender today. There is some tenderness associated with the rectum due to previous hemorrhoidectomy. EXTREMITIES: The patient is able to move his toes on the right side, not able to move the left foot at all, which appears to be flaccid to examination by patient's 's report due to radiation therapy and effects on the spinal cord. LABORATORY STUDIES: The patient's white count on admission was 16,100, now down to 8200, left shift is improved from 81.3% to 67.2% on 07/29/2019. The ANC is now in a normal range of 5500, down from 13.1 at admission. Serum chemistry showed the patient's blood urea nitrogen at 22 and creatinine 1.18 with an estimated glomerular filtration rate of 59, blood glucose at 112, potassium of 3.2. A urinalysis obtained at admission showed a small amount of leukocyte esterase, red cells greater than 50, and white cells greater than 50 with 4+ bacteria observed on urinalysis. Urine gravity at the time of admission was 1.025. Urine was orange in color at that point, cloudy. Microbiology; a urine culture obtained on admission shows an extended spectrum antibiotic resistance pattern E coli. Radiologic studies; CT scan of the abdomen and pelvis was reviewed as previously described. This shows the presence of bilateral renal cysts; a relatively small simple appearing cyst on the right kidney posteriorly. On the left kidney, there is a very large complex cyst, which has septations as well as wall thickening making this a potentially Bosniak class 3 cyst. Inferiorly and anteriorly on the patient's left kidney is an exophytic cyst measuring about 2 cm in diameter, which is isodense on the noncontrast phase and also nearly isodense on the contrast phase indicating contrast uptake placing this cyst in category class 4 Bosniak cyst. ASSESSMENT AND PLAN: 1. Recurrent urinary tract infections. Certainly, the patient deserves urologic evaluation for voiding function. This would be ideally a postvoid residual assessment, which could be obtained after the patient voids in the hospital. Due to his cognitive dysfunction, this may be difficult to obtain. Cystoscopic evaluation of the patient may also be beneficial in identifying possible stricture, scar, bladder neck contracture, or other cause for the patient's recurrent urinary tract infections. 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 A dense phimotic band is easily visible on retraction of the foreskin. Any of these factors may contribute to the development of recurrent urinary tract infections. Incomplete bladder emptying would be the most concerning and would fit into the constellation of post radiation neurologic change resulting in incomplete bladder emptying and neurogenic bladder. I know the patient has had multiple urinary tract infections over the last year and in preceding years. The patient is under evaluation and treatment by Dr. Barbosa or he has a left arm PICC line, will be treated as an outpatient on appropriate antibiotic therapy. 2. Bosniak class 4 renal cyst and multiple lower Bosniak class cysts of the left kidney. The patient's anterior located exophytic cyst is a Bosniak class 4. Due to the patient's cyst size below 3 cm, age, and life expectancy, I do not recommend intervention for this lesion. This lesion was to undergo intervention, laparoscopic exposure would be required due to its anterior location, thus requiring a surgery. This lesion is not directly amenable to CT-guided radiofrequency ablation or cryotherapy. The patient's large posteriorly located cyst mostly appears benign, but due to multiple septations and some wall thickening, would be placed in at least Bosniak class 2F and possibly in Bosniak class 3, which I think probably fits it better. At the present time, no intervention is advised or entertained for these lesions. This rationale and reasoning with respect to this were discussed with the patient's and the patient in person, though his cognition level suggests he probably would not be able to understand the consequences or reasoning here. Over 70 minutes of initial consultation and assessment time was spent in evaluation of this patient today. Job ID: [id number]
[2019-07-30] MEDS: Melatonin 3 MG TAB PO SCH (22:03)
[2019-07-30] MEDS: traZODone HCl 50 MG TAB PO SCH (22:03)
[2019-07-31 07:41] LABS: INR-International Normal Ratio 3.8
[2019-07-31] MEDS: Valproate Sodium 250 mg/5 ml UD Cup PO SCH ×2 (07:56→21:40)
[2019-07-31] MEDS: Carvedilol 6.25 MG TAB PO SCH ×2 (07:57→21:36)
[2019-07-31] MEDS: Allopurinol 300 MG TAB PO SCH (07:57)
[2019-07-31] MEDS: Aspirin 81 mg Enteric Coated Tablet PO SCH (07:57)
[2019-07-31] MEDS: Docusate 100 MG CAP PO SCH (07:57)
[2019-07-31] MEDS: Gabapentin 400 MG CAP PO SCH ×2 (07:57→21:36)
[2019-07-31] MEDS: Famotidine 20 MG TAB PO SCH ×2 (07:58→21:36)
[2019-07-31] MEDS: Amlodipine 10 MG TAB PO SCH (07:58)
[2019-07-31] MEDS: Atorvastatin Calcium 40 MG TAB PO SCH (07:58)
[2019-07-31] MEDS: Polyethylene Glycol 3350 17 GM Packet PO SCH (07:58)
[2019-07-31] MEDS: MEROPENEM 1 GM/50 ML 1 GM in Premix Bag 1 BAG IVPB SCH ×2 (10:10→21:50)
[2019-07-31] MEDS: Sodium Chloride 0.9% 1,000 ML IV SCH (10:11)
--- NOTE | 2019-07-31 11:25 | RAD ---
Chest one view HISTORY: Aspiration. Dyspnea. COMPARISON: 07/28/2019. FINDINGS: Cardiac silhouette is magnified, enlarged, and partially obscured by the elevated left ayleen diaphragm and left basilar atelectasis that are similar in appearance to the previous exam. Mediastinum is rotated rightward with the patient. Left upper extremity PICC and calcified mediastina l lymph nodes are again demonstrated. Pulmonary vasculature is upper limits of normal. No evidence of pneumothorax. IMPRESSION: Left hemidiaphragm elevation, left basilar atelectasis, and pulmonary vascular congestion are stable. Cardiomegaly.
[2019-07-31 15:58] LABS: ALT (SGPT) 15 U/L (8-55); AST (SGOT) 14 U/L (5-34); Albumin 2.7 g/dL (3.4-4.8); Alkaline Phosphatase 78 U/L (40-110); Anion Gap 9 mmol/L (10-20); BUN (Urea Nitrogen) 14 mg/dL (8.4-25.7); Bilirubin, Total 0.6 mg/dL (0.2-1.2); Calc. Creatinine Clearance 72 mL/min (70-130); Calcium 8.3 mg/dL (7.8-10.44); Carbon Dioxide 30 mmol/L (23-31); Chloride 106 mmol/L (98-107); Estimated GFR-MDRD 79; Glucose 106 mg/dL (83-110); Potassium 3.9 mmol/L (3.5-5.1); Protein, Total 5.7 g/dL (5.8-8.1); Sodium 141 mmol/L (136-145)
--- NOTE | 2019-07-31 16:04 | CT ---
EXAM: Brain CT scan Without contrast: HISTORY: Altered mental status COMPARISON: 07/25/2019 FINDINGS: Marked stable ventriculomegaly. Atrophy and chronic white matter ischemic change. No focal mass or midline shift. No intra or extra-axial hemorrhage. Ethmoid sinus mucosal disease. The mastoids are clear of acute process IMPRESSION: No mass or bleed or other significant acute intracranial process. Overall stable exam.
--- NOTE | 2019-07-31 18:46 | PDOC.HOSPP ---
- Subjective Encounter Date: 07/31/19 Encounter Time: 10:00 Subjective: Pt seen for followup re: UTI. Pt not answering questions, unable to complete ROS. - Objective Vital Signs & Weight: Vital Signs (12 hours) Temp Pulse Resp BP BP Pulse Ox 07/31/19 08:00 96 07/31/19 07:58 75 153/75 H 07/31/19 07:57 153/75 H 07/31/19 07:25 98.3 F 75 18 153/75 H 96 Weight Weight 190 lb 4.8 oz I&O: 07/30/19 07/31/19 08/01/19 06:59 06:59 06:59 Intake Total 863 2009 Balance 863 2009 Result Diagrams: 07/29/19 06:17 07/31/19 15:21 Additional Labs: labs and MARs reviewed by [place] Hospitalist ROS - Review of Systems ROS unobtainable: due to mental status - Medication Medications: Active Medications Generic Name Dose Route Start Last Admin Trade Name Freq PRN Reason Stop Dose Admin Acetaminophen 650 mg 07/26/19 11:38 07/28/19 20:20 Tylenol PO 650 mg Q4H PRN Administration Headache/Fever/Mild Pain (1-3) Allopurinol 300 mg 07/27/19 09:00 07/31/19 07:57 Zyloprim PO 300 mg DAILY DAVID Administration Amlodipine Besylate 10 mg 07/27/19 09:00 07/31/19 07:58 Norvasc PO 10 mg DAILY DAVID Administration Aspirin 81 mg 07/27/19 09:00 07/31/19 07:57 Ecotrin PO 81 mg DAILY DAVID Administration Atorvastatin Calcium 40 mg 07/27/19 09:00 07/31/19 07:58 Lipitor PO 40 mg DAILY DAVID Administration Carvedilol 6.25 mg 07/26/19 21:00 07/31/19 07:57 Coreg PO 6.25 mg BID DAVID Administration Docusate Sodium 100 mg 07/27/19 09:00 07/31/19 07:57 Colace PO 100 mg DAILY DAVID Administration Famotidine 20 mg 07/26/19 21:00 07/31/19 07:58 Pepcid PO 20 mg BID DAVID Administration Gabapentin 800 mg 07/26/19 21:00 07/31/19 07:57 Neurontin PO 800 mg BID DAVID Administration Sodium Chloride 1,000 mls @ 60 mls/hr 07/26/19 11:45 07/31/19 10:11 Normal Saline 0.9% IV Not Given .[id number] DAVID Meropenem 1 gm/ Device 50 mls @ 200 mls/hr 07/27/19 10:00 07/31/19 10:10 IVPB 50 mls 1000,2200 DAVID Administration Melatonin 3 mg 07/26/19 21:00 07/30/19 22:03 Melatonin PO 3 mg HS DAVID Administration Polyethylene Glycol 17 gm 07/27/19 09:00 07/31/19 07:58 Miralax PO 17 gm DAILY DAVID Administration Trazodone HCl 50 mg 07/26/19 21:00 07/30/19 22:03 Desyrel PO 50 mg HS DAVID Administration Valproic Acid 375 mg 07/28/19 21:00 07/31/19 07:56 Depakene Liquid PO 375 mg BID DAVID Administration - Exam General Appearance: NAD Eye: anicteric sclera ENT: moist mucosa Neck: supple, no JVD Heart: RRR, no gallops Respiratory: CTAB, no rales Gastrointestinal: soft, non-tender Musculoskeletal: no muscle wasting Psychiatric - other findings: Unable to assess Hosp A/P (1) UTI (urinary tract infection) Status: Acute Qualifiers: (2) Renal mass Code(s): N28.89 - OTHER SPECIFIED DISORDERS OF KIDNEY AND URETER Status: Acute (3) Acute myocardial infarction Code(s): I21.9 - ACUTE MYOCARDIAL INFARCTION, UNSPECIFIED Status: Acute Qualifiers: Myocardial infarction type: type 2 Qualified Code(s): I21.A1 - Myocardial infarction type 2 (4) Dementia Code(s): F03.90 - UNSPECIFIED DEMENTIA WITHOUT BEHAVIORAL DISTURBANCE Status: Chronic Qualifiers: (5) Gout Code(s): M10.9 - GOUT, UNSPECIFIED Status: Chronic (6) Hypertension Code(s): I10 - ESSENTIAL (PRIMARY) HYPERTENSION Status: Chronic Qualifiers: (7) Sepsis Code(s): A41.9 - SEPSIS, UNSPECIFIED ORGANISM Status: Resolved - Plan plan discussed w/ family, continue antibiotics, PT/OT Appreciate urology service input re: renal mass. Continue IV meropenem for UTI. PICC line placed during this hospitalization. Monitor vital signs, titrate antihypertensives as needed. Dementia stable. reports righrt shoulder twitches, will check lytes and CT brain. INR is supratherapeutic. Pharmacy is dosing warfarin for PE.
[2019-07-31 19:00] LABS: Phosphorus 2.2 mg/dL (2.3-4.7)
[2019-07-31] MEDS: traZODone HCl 50 MG TAB PO SCH (21:36)
[2019-07-31] MEDS: Melatonin 3 MG TAB PO SCH (21:36)
[2019-07-31] MEDS: Latanoprost 0.005% Ophth Soln 2.5 ml Bottle EA EYE SCH (21:37)
[2019-07-31] MEDS: Nystatin Powder 15 GM BOT TOP SCH (21:37)
[2019-08-01] MEDS: Sodium Chloride 0.9% 1,000 ML IV SCH ×2 (02:50→17:11)
[2019-08-01 06:51] LABS: INR-International Normal Ratio 3.8; Prothrombin Time 36.8 SEC (12.0-14.7)
[2019-08-01 08:20] LABS: #Basophils 0.1 thou/uL (0.0-0.2); #Eosinphils 0.2 thou/uL (0.0-0.7); #Lymphocytes 1.5 thou/uL (1.20-3.40); #Monocytes 1.1 thou/uL (0.11-0.59); #Neutrophils 7.5 thou/uL (1.40-6.50); %Basophils 0.6 % (0.0-1.0); %Lymphocytes 14.1 % (21.0-51.0); %Monocytes 10.8 % (0.0-10.0); %Neutrophils 72.5 % (42.0-75.0); Hemoglobin 12.1 g/dL (14.0-18.0); Mean Corpuscular HGB CONC 34.3 g/dL (32.0-36.0); Mean Corpuscular Hemoglobin 31.8 pg (27.0-31.0); Mean Corpuscular Volume 92.7 fL (78.0-98.0); Mean Platelet Volume 9.2 fL (7.4-10.4); Platelet Count 175 thou/uL (130-400); RBC Distribution Width 13.8 % (11.5-14.5); White Blood Cell (WBC) Count 10.3 thou/uL (4.8-10.8)
[2019-08-01] MEDS: Allopurinol 300 MG TAB PO SCH (08:42)
[2019-08-01] MEDS: Gabapentin 400 MG CAP PO SCH ×2 (08:42→21:49)
[2019-08-01] MEDS: Docusate 100 MG CAP PO SCH (08:42)
[2019-08-01] MEDS: Famotidine 20 MG TAB PO SCH ×2 (08:42→21:50)
[2019-08-01] MEDS: Aspirin 81 mg Enteric Coated Tablet PO SCH (08:42)
[2019-08-01] MEDS: Valproate Sodium 250 mg/5 ml UD Cup PO SCH ×2 (08:43→21:51)
[2019-08-01] MEDS: Atorvastatin Calcium 40 MG TAB PO SCH (08:43)
[2019-08-01 08:45] LABS: ALT (SGPT) 13 U/L (8-55); AST (SGOT) 12 U/L (5-34); Albumin 2.6 g/dL (3.4-4.8); Alkaline Phosphatase 74 U/L (40-110); Anion Gap 9 mmol/L (10-20); BUN (Urea Nitrogen) 14 mg/dL (8.4-25.7); Bilirubin, Total 0.6 mg/dL (0.2-1.2); Calc. Creatinine Clearance 77 mL/min (70-130); Calcium 8.2 mg/dL (7.8-10.44); Carbon Dioxide 30 mmol/L (23-31); Chloride 107 mmol/L (98-107); Estimated GFR-MDRD 85; Globulin 2.9 g/dL (2.4-3.5); Glucose 86 mg/dL (83-110); Magnesium 1.8 mg/dL (1.6-2.6); Phosphorus 2.2 mg/dL (2.3-4.7); Potassium 3.8 mmol/L (3.5-5.1); Protein, Total 5.5 g/dL (5.8-8.1); Sodium 142 mmol/L (136-145)
[2019-08-01] MEDS: Amlodipine 10 MG TAB PO SCH (08:45)
[2019-08-01] MEDS: Carvedilol 6.25 MG TAB PO SCH ×2 (08:45→21:50)
[2019-08-01] MEDS: Nystatin Powder 15 GM BOT TOP SCH ×2 (08:46→21:51)
[2019-08-01] MEDS: Polyethylene Glycol 3350 17 GM Packet PO SCH (08:49)
[2019-08-01] MEDS: MEROPENEM 1 GM/50 ML 1 GM in Premix Bag 1 BAG IVPB SCH ×2 (10:43→21:49)
[2019-08-01] MEDS: K-Phos Neutral 250 MG TAB PO SCH ×2 (12:07→17:06)
[2019-08-01] MEDS ORDERED: PARoxetine 20 MG TAB ONE (21:45)
[2019-08-01] MEDS: Melatonin 3 MG TAB PO SCH (21:49)
[2019-08-01] MEDS: traZODone HCl 50 MG TAB PO SCH (21:49)
[2019-08-01] MEDS: Latanoprost 0.005% Ophth Soln 2.5 ml Bottle EA EYE SCH (21:52)
[2019-08-02] MEDS: Sodium Chloride 0.9% 1,000 ML IV SCH ×2 (03:36→20:18)
[2019-08-02 06:12] LABS: INR-International Normal Ratio 3.5; Prothrombin Time 34.7 SEC (12.0-14.7)
--- NOTE | 2019-08-02 08:48 | PDOC.HOSPP ---
- Subjective Encounter Date: 08/01/19 Encounter Time: 12:00 Subjective: Patient seen and examined for Sepsis/Encephalopathy. No new complaints. No overnight events - Objective Vital Signs & Weight: Vital Signs (12 hours) BP 08/01/19 21:50 150/69 H Weight Weight 190 lb 4.8 oz I&O: 08/01/19 08/02/19 08/03/19 06:59 06:59 06:59 Intake Total 1720 1643 Balance 1720 1643 Result Diagrams: 08/01/19 08:04 08/01/19 08:04 Hospitalist ROS - Review of Systems Respiratory: denies: cough, dry, shortness of breath, hemoptysis, SOB with excertion, pleuritic pain, sputum, wheezing, other Cardiovascular: denies: chest pain, palpitations, orthopnea, paroxysmal noc. dyspnea, edema, light headedness, other - Medication Medications: Active Medications Generic Name Dose Route Start Last Admin Trade Name Freq PRN Reason Stop Dose Admin Acetaminophen 650 mg 07/26/19 11:38 07/28/19 20:20 Tylenol PO 650 mg Q4H PRN Administration Headache/Fever/Mild Pain (1-3) Allopurinol 300 mg 07/27/19 09:00 08/01/19 08:42 Zyloprim PO 300 mg DAILY DAVID Administration Amlodipine Besylate 10 mg 07/27/19 09:00 08/01/19 08:45 Norvasc PO 10 mg DAILY DAVID Administration Aspirin 81 mg 07/27/19 09:00 08/01/19 08:42 Ecotrin PO 81 mg DAILY DAVID Administration Atorvastatin Calcium 40 mg 07/27/19 09:00 08/01/19 08:43 Lipitor PO 40 mg DAILY DAVID Administration Carvedilol 6.25 mg 07/26/19 21:00 08/01/19 21:50 Coreg PO 6.25 mg BID DAVID Administration Docusate Sodium 100 mg 07/27/19 09:00 08/01/19 08:42 Colace PO 100 mg DAILY DAVID Administration Famotidine 20 mg 07/26/19 21:00 08/01/19 21:50 Pepcid PO 20 mg BID DAVID Administration Gabapentin 800 mg 07/26/19 21:00 08/01/19 21:49 Neurontin PO 800 mg BID DAVID Administration Sodium Chloride 1,000 mls @ 60 mls/hr 07/26/19 11:45 08/02/19 03:36 Normal Saline 0.9% IV 1,000 mls .[id number] DAVID Administration Meropenem 1 gm/ Device 50 mls @ 200 mls/hr 07/27/19 10:00 08/01/19 21:49 IVPB 50 mls 1000,2200 DAVID Administration Latanoprost 1 drop 07/31/19 21:00 08/01/19 21:52 Xalatan 0.005% Ophth Soln EA EYE 1 drop HS DAVID Administration Melatonin 3 mg 07/26/19 21:00 08/01/19 21:49 Melatonin PO 3 mg HS DAVID Administration Nystatin 1 gm 07/31/19 21:00 08/01/19 21:51 Mycostatin Powder TOP 1 applic BID DAVID Administration Phosphorus 250 mg 08/01/19 12:00 08/01/19 17:06 Kphos Neutral PO 250 mg TID-WM DAVID Administration Polyethylene Glycol 17 gm 07/27/19 09:00 08/01/19 08:49 Miralax PO 17 gm DAILY DAVID Administration Trazodone HCl 50 mg 07/26/19 21:00 08/01/19 21:49 Desyrel PO 50 mg HS DAVID Administration Valproic Acid 375 mg 07/28/19 21:00 08/01/19 21:51 Depakene Liquid PO 375 mg BID DAVID Administration - Exam General Appearance: NAD Heart: RRR, no gallops Respiratory: CTAB, no rales Gastrointestinal: soft, non-tender, normal bowel sounds Extremities: no edema Hosp A/P - Plan Sepsis due to ESBL UTI Toxic Metabolic Encephalopathy h/o PE on Warfarin/Supratherapeutic INR HTN Dementia Swallow dysfunction Renal mass PLAN: Cont Atbx per ID Warfarin on hold AM labs Conservative mngt per Urology
[2019-08-02] MEDS: MEROPENEM 1 GM/50 ML 1 GM in Premix Bag 1 BAG IVPB SCH ×2 (09:16→21:11)
[2019-08-02] MEDS: Gabapentin 400 MG CAP PO SCH ×2 (09:17→20:19)
[2019-08-02] MEDS: Valproate Sodium 250 mg/5 ml UD Cup PO SCH ×2 (09:17→20:18)
[2019-08-02] MEDS: K-Phos Neutral 250 MG TAB PO SCH ×3 (09:17→16:55)
[2019-08-02] MEDS: Acetaminophen 325 MG TAB PO PRN (09:17)
[2019-08-02] MEDS: Amlodipine 10 MG TAB PO SCH (09:18)
[2019-08-02] MEDS: Carvedilol 6.25 MG TAB PO SCH ×2 (09:19→20:19)
[2019-08-02] MEDS: Allopurinol 300 MG TAB PO SCH (09:21)
[2019-08-02] MEDS: Aspirin 81 mg Enteric Coated Tablet PO SCH (09:21)
[2019-08-02] MEDS: Polyethylene Glycol 3350 17 GM Packet PO SCH (09:21)
[2019-08-02] MEDS: Atorvastatin Calcium 40 MG TAB PO SCH (09:21)
[2019-08-02] MEDS: Famotidine 20 MG TAB PO SCH ×2 (09:22→20:18)
[2019-08-02] MEDS: Docusate 100 MG CAP PO SCH (09:22)
[2019-08-02] MEDS: Nystatin Powder 15 GM BOT TOP SCH ×2 (09:22→20:21)
[2019-08-02] MEDS: Melatonin 3 MG TAB PO SCH (20:18)
[2019-08-02] MEDS: traZODone HCl 50 MG TAB PO SCH (20:18)
[2019-08-02] MEDS: Latanoprost 0.005% Ophth Soln 2.5 ml Bottle EA EYE SCH (20:20)
[2019-08-03 05:51] LABS: #Basophils 0.1 thou/uL (0.0-0.2); #Eosinphils 0.4 thou/uL (0.0-0.7); #Lymphocytes 1.7 thou/uL (1.20-3.40); #Monocytes 0.8 thou/uL (0.11-0.59); #Neutrophils 5.2 thou/uL (1.40-6.50); %Basophils 0.6 % (0.0-1.0); %Lymphocytes 20.3 % (21.0-51.0); %Monocytes 9.8 % (0.0-10.0); %Neutrophils 64.3 % (42.0-75.0); Hemoglobin 11.4 g/dL (14.0-18.0); Mean Corpuscular HGB CONC 34.1 g/dL (32.0-36.0); Mean Corpuscular Hemoglobin 31.6 pg (27.0-31.0); Mean Corpuscular Volume 92.6 fL (78.0-98.0); Mean Platelet Volume 9.3 fL (7.4-10.4); Platelet Count 202 thou/uL (130-400); RBC Distribution Width 13.6 % (11.5-14.5); Red Blood Cell (RBC) Count 3.59 mill/uL (4.70-6.10); White Blood Cell (WBC) Count 8.1 thou/uL (4.8-10.8)
[2019-08-03 05:52] LABS: INR-International Normal Ratio 3.9; Prothrombin Time 38.1 SEC (12.0-14.7)
[2019-08-03 06:23] LABS: Albumin 2.4 g/dL (3.4-4.8); Anion Gap 8 mmol/L (10-20); BUN (Urea Nitrogen) 11 mg/dL (8.4-25.7); BUN/Creatinine Ratio 14.67; Calc. Creatinine Clearance 88 mL/min (70-130); Carbon Dioxide 29 mmol/L (23-31); Chloride 107 mmol/L (98-107); Estimated GFR-MDRD Greater than 90; Glucose 82 mg/dL (83-110); Magnesium 1.9 mg/dL (1.6-2.6); Phosphorus 2.3 mg/dL (2.3-4.7); Potassium 3.8 mmol/L (3.5-5.1); Sodium 140 mmol/L (136-145)
[2019-08-03] MEDS: Sodium Chloride 0.9% 1,000 ML IV SCH ×2 (06:31→20:21)
[2019-08-03] MEDS: K-Phos Neutral 250 MG TAB PO SCH ×3 (09:07→15:53)
[2019-08-03] MEDS: Acetaminophen 325 MG TAB PO PRN (09:07)
[2019-08-03] MEDS: Famotidine 20 MG TAB PO SCH ×2 (09:08→20:21)
[2019-08-03] MEDS: Amlodipine 10 MG TAB PO SCH (09:08)
[2019-08-03] MEDS: Gabapentin 400 MG CAP PO SCH ×2 (09:08→20:20)
[2019-08-03] MEDS: Atorvastatin Calcium 40 MG TAB PO SCH (09:09)
[2019-08-03] MEDS: Carvedilol 6.25 MG TAB PO SCH ×2 (09:09→20:21)
[2019-08-03] MEDS: Allopurinol 300 MG TAB PO SCH (09:09)
[2019-08-03] MEDS: Nystatin Powder 15 GM BOT TOP SCH ×2 (09:09→20:22)
[2019-08-03] MEDS: Docusate 100 MG CAP PO SCH (09:09)
[2019-08-03] MEDS: Aspirin 81 mg Enteric Coated Tablet PO SCH (09:09)
[2019-08-03] MEDS: Polyethylene Glycol 3350 17 GM Packet PO SCH (09:10)
[2019-08-03] MEDS: MEROPENEM 1 GM/50 ML 1 GM in Premix Bag 1 BAG IVPB SCH ×2 (09:10→21:26)
[2019-08-03] MEDS: Valproate Sodium 250 mg/5 ml UD Cup PO SCH ×2 (09:10→20:20)
--- NOTE | 2019-08-03 09:36 | PDOC.HOSPP ---
- Subjective Encounter Date: 08/02/19 Encounter Time: 12:30 Subjective: Patient seen and examined for Sepsis. No GI bleeding. Mentation improving. Denies any pain. No new complaints. No overnight events - Objective Vital Signs & Weight: Vital Signs (12 hours) Temp Pulse Resp BP BP Pulse Ox 08/03/19 09:09 149/60 H 08/03/19 09:08 67 08/03/19 07:57 98.5 F 67 18 149/60 H 93 L Weight Weight 190 lb 4.8 oz I&O: 08/02/19 08/03/19 08/04/19 06:59 06:59 06:59 Intake Total 1643 2710 Balance 1643 2710 Result Diagrams: 08/03/19 04:58 08/03/19 04:58 Hospitalist ROS - Review of Systems Respiratory: denies: cough, dry, shortness of breath, hemoptysis, SOB with excertion, pleuritic pain, sputum, wheezing, other Cardiovascular: denies: chest pain, palpitations, orthopnea, paroxysmal noc. dyspnea, edema, light headedness, other - Medication Medications: Active Medications Generic Name Dose Route Start Last Admin Trade Name Freq PRN Reason Stop Dose Admin Acetaminophen 650 mg 07/26/19 11:38 08/03/19 09:07 Tylenol PO 650 mg Q4H PRN Administration Headache/Fever/Mild Pain (1-3) Allopurinol 300 mg 07/27/19 09:00 08/03/19 09:09 Zyloprim PO 300 mg DAILY DAVID Administration Amlodipine Besylate 10 mg 07/27/19 09:00 08/03/19 09:08 Norvasc PO 10 mg DAILY DAVID Administration Aspirin 81 mg 07/27/19 09:00 08/03/19 09:09 Ecotrin PO 81 mg DAILY DAVID Administration Atorvastatin Calcium 40 mg 07/27/19 09:00 08/03/19 09:09 Lipitor PO 40 mg DAILY DAVID Administration Carvedilol 6.25 mg 07/26/19 21:00 08/03/19 09:09 Coreg PO 6.25 mg BID DAVID Administration Docusate Sodium 100 mg 07/27/19 09:00 08/03/19 09:09 Colace PO 100 mg DAILY DAVID Administration Famotidine 20 mg 07/26/19 21:00 08/03/19 09:08 Pepcid PO 20 mg BID DAVID Administration Gabapentin 800 mg 07/26/19 21:00 08/03/19 09:08 Neurontin PO 800 mg BID DAVID Administration Sodium Chloride 1,000 mls @ 60 mls/hr 07/26/19 11:45 08/03/19 06:31 Normal Saline 0.9% IV Not Given .[id number] DAVID Meropenem 1 gm/ Device 50 mls @ 200 mls/hr 07/27/19 10:00 08/03/19 09:10 IVPB 50 mls 1000,2200 DAVID Administration Latanoprost 1 drop 07/31/19 21:00 08/02/19 20:20 Xalatan 0.005% Ophth Soln EA EYE 1 drop HS DAVID Administration Melatonin 3 mg 07/26/19 21:00 08/02/19 20:18 Melatonin PO 3 mg HS DAVID Administration Nystatin 1 gm 07/31/19 21:00 08/03/19 09:09 Mycostatin Powder TOP 1 applic BID DAVID Administration Phosphorus 250 mg 08/01/19 12:00 08/03/19 09:07 Kphos Neutral PO 250 mg TID-WM DAVID Administration Polyethylene Glycol 17 gm 07/27/19 09:00 08/03/19 09:10 Miralax PO 17 gm DAILY DAIVD Administration Trazodone HCl 50 mg 07/26/19 21:00 08/02/19 20:18 Desyrel PO 50 mg HS DAVID Administration Valproic Acid 375 mg 07/28/19 21:00 08/03/19 09:10 Depakene Liquid PO 375 mg BID DAVID Administration - Exam Heart: negative: RRR, no murmur, no gallops, no rubs, normal peripheral pulses, irregular, diminshed peripheral pulses, murmur present, II/IV, III/IV Respiratory: negative: CTAB, no wheezes, no rales, no ronchi, normal chest expansion, no tachypnea, normal percussion, rales, rhonchi, tachypneic, wheezes Hosp A/P - Plan Sepsis due to ESBL UTI Toxic Metabolic Encephalopathy h/o PE on Warfarin/Supratherapeutic INR HTN Dementia Swallow dysfunction Renal mass PLAN: Cont IV Meropenem Warfarin on hold due to suprratherapeutic INR INR in AM Cont other meds
--- NOTE | 2019-08-03 13:45 | PRG ---
DATE OF SERVICE: 08/03/2019 SUBJECTIVE: The patient is a little bit less confused. Denies any shortness of breath or chest pain. No abdominal pain or diarrhea. OBJECTIVE: VITAL SIGNS: Temperature max 98.8, blood pressure 140/60, and pulse 67. GENERAL: The patient is awake, in no distress. LUNGS: Symmetric. Clear breath sounds. HEART: S1 and S2, regular rate. ABDOMEN: Soft. Not distended or tender. LABORATORY DATA: White cell count is 8.1, hemoglobin 11.4, platelets 202. Creatinine 0.75. Microbiology with E. coli has ESBL phenotype. ASSESSMENT AND DISCUSSION: Dementia, pulmonary embolism history, fever, abnormal urinalysis, and the abnormalities of kidney masses and cyst. The patient will complete treatment with ertapenem for a week. No further urological intervention has been recommended. Job ID: [id number]
[2019-08-03] MEDS: Melatonin 3 MG TAB PO SCH (20:20)
[2019-08-03] MEDS: traZODone HCl 50 MG TAB PO SCH (20:20)
[2019-08-03] MEDS: Latanoprost 0.005% Ophth Soln 2.5 ml Bottle EA EYE SCH (20:21)
--- NOTE | 2019-08-03 23:32 | PDOC.HOSPP ---
- Subjective Encounter Date: 08/03/19 Encounter Time: 14:00 Subjective: Patient seen and examined for Sepsis/Encephalopathy. No new complaints. No overnight events - Objective Vital Signs & Weight: Vital Signs (12 hours) Temp Pulse Resp BP BP Pulse Ox 08/03/19 20:21 151/53 H 08/03/19 20:00 98.5 F 63 18 151/53 H 95 Weight Weight 190 lb 4.8 oz I&O: 08/02/19 08/03/19 08/04/19 06:59 06:59 06:59 Intake Total 1643 2710 1620 Balance 1643 2710 1620 Result Diagrams: 08/03/19 04:58 08/03/19 04:58 Hospitalist ROS - Review of Systems Respiratory: denies: cough, dry, shortness of breath, hemoptysis, SOB with excertion, pleuritic pain, sputum, wheezing, other Cardiovascular: denies: chest pain, palpitations, orthopnea, paroxysmal noc. dyspnea, edema, light headedness, other - Medication Medications: Active Medications Generic Name Dose Route Start Last Admin Trade Name Freq PRN Reason Stop Dose Admin Acetaminophen 650 mg 07/26/19 11:38 08/03/19 09:07 Tylenol PO 650 mg Q4H PRN Administration Headache/Fever/Mild Pain (1-3) Allopurinol 300 mg 07/27/19 09:00 08/03/19 09:09 Zyloprim PO 300 mg DAILY DAVID Administration Amlodipine Besylate 10 mg 07/27/19 09:00 08/03/19 09:08 Norvasc PO 10 mg DAILY DAVID Administration Aspirin 81 mg 07/27/19 09:00 08/03/19 09:09 Ecotrin PO 81 mg DAILY DAVID Administration Atorvastatin Calcium 40 mg 07/27/19 09:00 08/03/19 09:09 Lipitor PO 40 mg DAILY DAVID Administration Carvedilol 6.25 mg 07/26/19 21:00 08/03/19 20:21 Coreg PO 6.25 mg BID DAVID Administration Docusate Sodium 100 mg 07/27/19 09:00 08/03/19 09:09 Colace PO 100 mg DAILY DAVID Administration Famotidine 20 mg 07/26/19 21:00 08/03/19 20:21 Pepcid PO 20 mg BID DAVID Administration Gabapentin 800 mg 07/26/19 21:00 08/03/19 20:20 Neurontin PO 800 mg BID DAVID Administration Sodium Chloride 1,000 mls @ 60 mls/hr 07/26/19 11:45 08/03/19 20:21 Normal Saline 0.9% IV Not Given .[id number] DAVID Meropenem 1 gm/ Device 50 mls @ 200 mls/hr 07/27/19 10:00 08/03/19 21:26 IVPB 50 mls 1000,2200 DAVID Administration Latanoprost 1 drop 07/31/19 21:00 08/03/19 20:21 Xalatan 0.005% Ophth Soln EA EYE 1 drop HS DAVID Administration Melatonin 3 mg 07/26/19 21:00 08/03/19 20:20 Melatonin PO 3 mg HS DAVID Administration Nystatin 1 gm 07/31/19 21:00 08/03/19 20:22 Mycostatin Powder TOP 1 applic BID DAVID Administration Phosphorus 250 mg 08/01/19 12:00 08/03/19 15:53 Kphos Neutral PO 250 mg TID-WM DAVID Administration Polyethylene Glycol 17 gm 07/27/19 09:00 08/03/19 09:10 Miralax PO 17 gm DAILY DAVID Administration Trazodone HCl 50 mg 07/26/19 21:00 08/03/19 20:20 Desyrel PO 50 mg HS DAVID Administration Valproic Acid 375 mg 07/28/19 21:00 08/03/19 20:20 Depakene Liquid PO 375 mg BID DAVID Administration - Exam General Appearance: NAD Neck: supple, no JVD Heart: RRR, no gallops Respiratory: CTAB, no rales Gastrointestinal: soft, non-tender, normal bowel sounds Extremities: no edema Hosp A/P - Plan Sepsis due to ESBL UTI Toxic Metabolic Encephalopathy h/o PE on Warfarin/Supratherapeutic INR (3.9) HTN Dementia Swallow dysfunction Renal mass PLAN: Cont IV Meropenem - Change to Ertapenem at dc Warfarin on hold due to suprratherapeutic INR Can try Vit K in AM if INR still supratherapeutic PT/INR in AM Cont other meds
[2019-08-04] MEDS: Sodium Chloride 0.9% 1,000 ML IV SCH (05:35)
[2019-08-04 06:56] LABS: INR-International Normal Ratio 3.2; Prothrombin Time 32.8 SEC (12.0-14.7)
[2019-08-04] MEDS ORDERED: PARoxetine 20 MG TAB ONE ×2 (08:29)
[2019-08-04] MEDS: K-Phos Neutral 250 MG TAB PO SCH ×2 (08:53→13:24)
[2019-08-04] MEDS: Valproate Sodium 250 mg/5 ml UD Cup PO SCH (08:55)
[2019-08-04] MEDS: Nystatin Powder 15 GM BOT TOP SCH (08:56)
[2019-08-04] MEDS: Polyethylene Glycol 3350 17 GM Packet PO SCH (08:56)
[2019-08-04] MEDS: Carvedilol 6.25 MG TAB PO SCH (08:57)
[2019-08-04] MEDS: Amlodipine 10 MG TAB PO SCH (08:57)
[2019-08-04] MEDS: Atorvastatin Calcium 40 MG TAB PO SCH (08:57)
[2019-08-04] MEDS: Allopurinol 300 MG TAB PO SCH (08:58)
[2019-08-04] MEDS: Famotidine 20 MG TAB PO SCH (08:58)
[2019-08-04] MEDS: Docusate 100 MG CAP PO SCH (08:58)
[2019-08-04] MEDS: Gabapentin 400 MG CAP PO SCH (08:58)
[2019-08-04] MEDS: MEROPENEM 1 GM/50 ML 1 GM in Premix Bag 1 BAG IVPB SCH (09:03)
[2019-08-04 16:52] VITALS: BP 153/70; TEMP 98.1
--- NOTE | 2019-08-05 10:52 | DIS ---
DATE OF ADMISSION: 07/25/2019 DATE OF DISCHARGE: 08/04/2019 DIAGNOSES AT THE TIME OF ADMISSION: 1. Sepsis. 2. Urinary tract infection. 3. Acute metabolic encephalopathy. 4. Dehydration. FINAL DIAGNOSES: 1. Sepsis due to extended spectrum beta-lactamase urinary tract infection. 2. Urinary tract infection caused by extended spectrum beta-lactamase Escherichia coli. 3. Toxic metabolic encephalopathy, resolved. 4. History of pulmonary embolism, on anticoagulation. 5. Supratherapeutic INR. 6. Hypertension. 7. Dementia. 8. Renal mass, which measures 1.8 cm and is located in the inferior pole of the left kidney and it has some imaging characteristics of renal cell carcinoma. 9. Myocardial infarction type 2. 10. Gout, chronic. 11. Hypertension. CONSULTANTS: Dr. Davion Barbosa, Infectious Diseases Service. Dr. Sandro Sommers, Urology Service. HOSPITAL COURSE: The patient was an 83[facility] resident, who apparently had some fever of 101 degrees at the [facility]. He was agitated and not very responsive while in the emergency room getting evaluated. His lab work showed creatinine of 1.1, BUN of 26, potassium 3.4, INR was 1.7, white count was 16, hemoglobin and hematocrit [address] of the brain without contrast showed severe periventricular and deep white matter microangiopathic changes. There was no acute intracranial abnormality. No bleed or acute territorial infarct seen. Chest x-ray showed no acute process. Urinalysis showed UTI most likely and preliminary blood cultures showed no growth. The patient got admitted to the hospital here. He was given vancomycin, cefepime, and Levaquin. In the emergency room, we continued his Levaquin and vancomycin. The patient was confused and agitated. His urine culture came back positive for growth of ESBL E coli. His antibiotic regimen was switched to meropenem since E coli was sensitive to and the patient was seen by Dr. Barbosa for Infectious Diseases consultation. He recommended to rule out any obstructive uropathy, so the CT of the abdomen was done and the pelvis without contrast which showed abnormal wall thickening of the rectum, evidence for nonspecific proctitis, somewhat contracted gallbladder with heterogeneous attenuation, possibly gallstone versus sludge without overt pericholecystic edema or fat stranding. Also, there was some incompletely characterized mass in the left kidney and the designated CT of the abdomen was recommended to assess renal mass. The patient underwent this testing which showed: 1. Solid inferior pole left renal mass measuring up to 1.8 cm, which had imaging characteristics of renal cell carcinoma. 2. Abnormal wall thickening of a large cyst of the interpolar left kidney along the anterior margin with continuity of the cortex along with mildly thickened urothelium of the left renal pelvis. The Urology consultation was requested and the patient was seen by Dr. Sommers, who did not recommend any further interventions because of the patient's advanced age and mental status. He agreed with IV antibiotics and the PICC line was placed and the [facility] he is going to receive additional week of IV piggyback Invanz 1 g every 24 hours. DIET: He is going to stay on heart healthy diet. ACTIVITIES: As tolerated. MEDICATIONS: At the time of discharge: 1. Ertapenem 1 g every 24 hours x7 days. 2. Tylenol 325 mg 2 tablets q.4 hours as needed. 3. Allopurinol 300 mg once a day. 4. Amlodipine 10 mg once a day. 5. Aspirin 81 mg once a day. 6. Atorvastatin 40 mg at bedtime. 7. Carvedilol 6.25 mg twice a day. 8. Colace 100 mg daily. 9. Gabapentin 800 mg twice a day. 10. Melatonin 3 mg at bedtime. 11. Polyethylene glycol 17 g every day. 12. Travatan one drop to each eye at bedtime. 13. Trazodone 50 mg at bedtime. 14. ointment one application as directed. 15. Calcium carbonate 500 mg daily. 16. DuoNeb q.2 hours p.r.n. as needed. 17. Ketoconazole 2% cream one application twice a day. 18. Magnesium hydroxide p.r.n. for constipation, 30 mL daily. 19. Senokot 2 tablets twice a day p.r.n. 20. Valproate sodium 375 mg twice a day. 21. Warfarin 7.5 mg once a day. FOLLOWUP: The patient should have PT and INR checked on Mondays and and results sent to his primary doctor for the next 2 weeks, then weekly, then monthly after his INR is stabilized and the patient will follow up with PCP in 1 week after the discharge from the place where he goes to. Job ID: [id number]
== END 2019-08-04 16:50 | DRG 871 ==
LOC: ERS 16:16 → T4-B 22:53
PROVIDERS: ADMIT Hospitalist; ATTEND Hospitalist
PROC: 02HV33Z Insertion of Infusion Device into Superior Vena Cava, Percutaneous Approach (ICD-10-PCS; principal; 2019-07-25)
PROC: B548ZZA Ultrasonography of Superior Vena Cava, Guidance (ICD-10-PCS; 2019-07-25)
DX: A41.51 Sepsis due to Escherichia coli [E. coli] (principal); I21.A1 Myocardial infarction type 2; G92 Toxic encephalopathy; C64.2 Malignant neoplasm of left kidney, except renal pelvis; C64.1 Malignant neoplasm of right kidney, except renal pelvis; N39.0 Urinary tract infection, site not specified; Z66 Do not resuscitate; F03.90 Unspecified dementia, unspecified severity, without behavioral disturbance, psychotic disturbance, mood disturbance, and anxiety; M19.91 Primary osteoarthritis, unspecified site; F41.9 Anxiety disorder, unspecified; F32.9 Major depressive disorder, single episode, unspecified; N40.0 Benign prostatic hyperplasia without lower urinary tract symptoms; G40.909 Epilepsy, unspecified, not intractable, without status epilepticus; B96.20 Unspecified Escherichia coli [E. coli] as the cause of diseases classified elsewhere; E87.6 Hypokalemia; I73.9 Peripheral vascular disease, unspecified; I25.10 Atherosclerotic heart disease of native coronary artery without angina pectoris; I11.0 Hypertensive heart disease with heart failure; I50.9 Heart failure, unspecified; M10.9 Gout, unspecified; Z85.828 Personal history of other malignant neoplasm of skin; Z86.73 Personal history of transient ischemic attack (TIA), and cerebral infarction without residual deficits; Z79.02 Long term (current) use of antithrombotics/antiplatelets; Z86.711 Personal history of pulmonary embolism; I25.2 Old myocardial infarction; Z79.899 Other long term (current) drug therapy; Z88.0 Allergy status to penicillin; Z88.8 Allergy status to other drugs, medicaments and biological substances; Z79.82 Long term (current) use of aspirin
CPT/HCPCS: 36415; 36569; 51701; 70450; 71045; 71250; 74170; 74177; 80048; 80053; 80069; 81003; 81015; 82553; 83605; 83735; 84100; 84484; 85025; 85610; 85730; 87040; 87077; 87086; 87186; 90471; 90662; 93005; 96365; 96366; 96367; 96368; 96372; C1751; G0008; J0692; J1644; J1650; J1956; J2185; J3370; J7050

== ENCOUNTER 2019-08-22 12:35 | Inpatient (IN) | payer MEDICARE, MEDICAID ==
[2019-08-22 13:30] LABS: Bilirubin Small (Negative); Blood, Urine Moderate (Negative); Clarity Clear (Clear); Glucose, Urine (Dipstick) Negative (Negative); Leukocyte Negative (Negative); Nitrite Negative (Negative); Protein, Urine (Dipstick) 100 mg/dL (Neg-Trace)
[2019-08-22] MEDS ORDERED: Cefepime 2 GM VIAL ONE (13:30)
[2019-08-22 13:31] LABS: #Lymphocytes 1.1 thou/uL (1.20-3.40); #Monocytes 0.7 thou/uL (0.11-0.59); #Neutrophils 14.8 thou/uL (1.40-6.50); %Basophils 0.2 % (0.0-1.0); %Eosinophils 0.2 % (0.0-10.0); %Lymphocytes 6.6 % (21.0-51.0); %Monocytes 4.2 % (0.0-10.0); %Neutrophils 88.7 % (42.0-75.0); Hemoglobin 10.8 g/dL (14.0-18.0); Mean Corpuscular HGB CONC 33.6 g/dL (32.0-36.0); Mean Corpuscular Hemoglobin 30.6 pg (27.0-31.0); Mean Corpuscular Volume 91.1 fL (78.0-98.0); Mean Platelet Volume 8.5 fL (7.4-10.4); Platelet Count 227 thou/uL (130-400); RBC Distribution Width 13.8 % (11.5-14.5); Red Blood Cell (RBC) Count 3.52 mill/uL (4.70-6.10); White Blood Cell (WBC) Count 16.7 thou/uL (4.8-10.8)
[2019-08-22 13:42] LABS: RBC/HPF 21-50 HPF (0-3)
[2019-08-22 13:43] LABS: Bacteria/HPF None Seen HPF (None Seen); Mucous/LPF 1+ LPF (<2+); Squamous Epithelial 0-3 HPF (0-3); WBC/HPF 0-3 HPF (0-3)
[2019-08-22 13:49] LABS: ALT (SGPT) 9 U/L (8-55); AST (SGOT) 14 U/L (5-34); Albumin 2.7 g/dL (3.4-4.8); Alkaline Phosphatase 87 U/L (40-110); Anion Gap 11 mmol/L (10-20); BUN (Urea Nitrogen) 16 mg/dL (8.4-25.7); Bilirubin, Total 0.6 mg/dL (0.2-1.2); Calc. Creatinine Clearance 0 mL/min (70-130); Calcium 8.5 mg/dL (7.8-10.44); Carbon Dioxide 31 mmol/L (23-31); Chloride 104 mmol/L (98-107); Estimated GFR-MDRD 66; Globulin 3.7 g/dL (2.4-3.5); Glucose 102 mg/dL (83-110); Potassium 4.7 mmol/L (3.5-5.1); Protein, Total 6.4 g/dL (5.8-8.1); Sodium 141 mmol/L (136-145)
--- NOTE | 2019-08-22 14:00 | RAD ---
EXAM: CHEST ONE VIEW HISTORY: Cough COMPARISON: 07/31/2019 FINDINGS: Cardiac silhouette remains magnified by projection but does appear enlarged. There is persistent elev ation of the left hemidiaphragm with mild atelectasis at the left lung base. Calcified granuloma is seen at the right lung base with calcified right paramediastinal lymph node present. Portion of the i nferior aspect right lateral costophrenic angle is excluded from view. No consolidation is seen. Degenerative changes are seen in the spine. Vascular calcifications are again noted in the thoracic a joaquin. IMPRESSION: 1. Persistent elevation left hemidiaphragm with left basilar atelectasis. 2. Cardiomegaly.
[2019-08-22] MEDS ORDERED: Gentamicin Sulfate 400 MG in Sodium Chloride 0.9% 100 ML IVPB SCH (14:45)
[2019-08-22] MEDS ORDERED: Guaifenesin DM 100-10/5 ML UDCUP PO PRN (15:36)
[2019-08-22] MEDS ORDERED: Bisacodyl 10 MG SUPP PR PRN (15:36)
[2019-08-22] MEDS ORDERED: Acetaminophen 325 MG TAB PO PRN (15:36)
[2019-08-22] MEDS ORDERED: Senokot S 8.6-50 MG TAB PO PRN (15:36)
[2019-08-22 16:38] LABS: Lactic Acid 2.2 mmol/L (0.5-2.2)
[2019-08-22] MEDS: Sodium Chloride 0.9% 1,000 ML IV SCH (17:25)
[2019-08-22 17:51] LABS: INR-International Normal Ratio 2.5; Prothrombin Time 26.9 SEC (12.0-14.7)
[2019-08-22] MEDS ORDERED: Bacteriostatic Water 30 ML VIAL FS PRN (20:36)
--- NOTE | 2019-08-22 21:11 | HP ---
REASON FOR ADMISSION: Aspiration pneumonia and sepsis. HISTORY OF PRESENTING ILLNESS: Please note majority of this history is obtained by talking to the patient's , Ms. Shepard, who is here at bedside, prior records , and [facility] records as patient is not fully oriented. He has been saying that he is not feeling good from weekend. Per , patient was also getting agitated at the [facility] from last 2 days. He had a temperature of 101 this morning. They gave him Tylenol. Still, the temperature remained high and he also got increasingly agitated, hence a decision was made to send him to the ER. He is on a soft pureed nectar thick diet. He has known history of aspiration risk with prior radiation therapy. PAST MEDICAL AND SURGICAL HISTORY: The patient was recently hospitalized for urinary tract infection with E coli and was on ertapenem with PICC line. History of throat cancer with prior radiation therapy and dysphagia. 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 CURRENT MEDICATIONS: The patient is on; 1. Allopurinol 300 mg p.o. daily. 2. Aspirin 81 mg p.o. daily. 3. Lipitor 40 mg p.o. daily. 4. Calcium carbonate p.r.n. 5. Coreg 6.25 mg twice daily. 6. Colace 100 mg daily. 7. Gabapentin 800 mg twice daily. 8. DuoNebs q.6 hourly. 9. Melatonin 3 mg p.o. at bedtime. 10. MiraLAX 17 g daily. 11. Travatan eyedrops to both eyes at bedtime. 12. Trazodone 50 mg p.o. at bedtime. 13. Coumadin 7.5 mg on Thursday, Thursday, Thursday, , and Thursday and 10 mg on the other two days. 14. Valproic acid 375 mg twice daily. 15. Norvasc 10 mg daily. ALLERGIES: ALLERGIC TO DOXYCYCLINE, PENICILLIN, AND SULFA. PERSONAL HISTORY: Patient is currently [facility] resident. Does not abuse alcohol or drugs. Does not smoke now. FAMILY HISTORY: Mother at the age of 85. Father at the age of 76. CODE STATUS: Do not attempt to resuscitate. This was discussed with the patient's and power of attorney lawyer, Ms. Rubén Shepard, at bedside. REVIEW OF SYSTEMS: Cannot be obtained as the patient is not oriented. PHYSICAL EXAMINATION: GENERAL: Patient is an 83-year-old male who is currently not in any acute distress. VITAL SIGNS: Blood pressure 126/56, pulse 78 per minute, respiratory rate 24 per minute, temperature 99.7 degrees Fahrenheit, and saturating 96% on 2 L nasal cannula. NECK: Supple. No elevated JVD. HEENT: Eyes; extraocular muscles intact. Pupils reacting to light. Oral cavity, mucous membranes are dry. No exudates or congestion. CARDIOVASCULAR SYSTEM: S1-S2 heard. Regular rhythm. RESPIRATORY SYSTEM: Diffuse rhonchi plus bilateral wheezes plus bilateral. ABDOMEN: Soft. Bowel sounds heard. No tenderness, rigidity, or guarding. EXTREMITIES: There is nonpitting edema in both lower extremities. Peripheral pulses are 1+ bilateral. No ischemic ulcerations or gangrene. CENTRAL NERVOUS SYSTEM: No new focal deficits noted. Patient is not fully oriented, but responds well to verbal questions with yes or no answers. PSYCHIATRIC: No obvious hallucinations or delusions. LABORATORY DATA: White count of 16, H and H 10 and 32, platelet count 227, MCV is 91 with 88% neutrophils. PT/INR 26 and 2.5. Electrolytes stable. BUN 16, creatinine 1.0. Lactic acid 2.4. Liver enzymes are within normal limits. Albumin is 2.7. UA shows 21 to 50 rbc's with moderate blood. Chest x-ray done shows cardiomegaly with persistent elevation of left hemidiaphragm with left basilar atelectasis. CLINICAL IMPRESSION AND PLAN: Patient will be admitted to medical floor for recurrent aspiration with sepsis at present. He has had a fever of 101 at the [facility]. He also has elevated white count. He has known history of dysphagia and is on soft pureed nectar thick diet, which is unclear if he follows. He will be on cefepime 1 g q.12 and vancomycin 1 g q.12. We will also give him a short course of steroids and normal saline at 70 mL per hour. We will continue his Norvasc, zyloprim, aspirin, Coumadin, Lipitor, Coreg, Colace, gabapentin, melatonin, MiraLAX, and valproic acid at home doses as before. We will obtain consultation with Dr. Barbosa. Blood and urine cultures will be obtained. We will continue to closely monitor him on medical floor. His overall prognosis is guarded. Job ID: [id number] [facility]
[2019-08-22] MEDS: Valproate Sodium 250 mg/5 ml UD Cup PO SCH (21:16)
[2019-08-22] MEDS: Melatonin 3 MG TAB PO SCH (21:17)
[2019-08-22] MEDS: traZODone HCl 50 MG TAB PO SCH (21:18)
[2019-08-22] MEDS: Latanoprost 0.005% Ophth Soln 2.5 ml Bottle EA EYE SCH (21:18)
[2019-08-22] MEDS: methylPREDNISolone Sod Succ 40 MG VIAL IVP SCH (21:19)
[2019-08-22] MEDS: Warfarin Sodium 7.5 MG TAB PO SCH (21:35)
[2019-08-22] MEDS: Famotidine 20 MG TAB PO SCH (21:35)
[2019-08-22] MEDS: Carvedilol 6.25 MG TAB PO SCH (21:35)
[2019-08-22] MEDS: Atorvastatin Calcium 40 MG TAB PO SCH (21:35)
[2019-08-22] MEDS: Gabapentin 400 MG CAP PO SCH (21:35)
[2019-08-22] MEDS: Vancomycin HCl 1 GM in Premix Bag 1 BAG IVPB SCH (23:44)
[2019-08-23] MEDS: Cefepime 1 GM in Sodium Chloride 0.9% 100 ML IVPB SCH ×3 (01:54→14:59)
[2019-08-23] MEDS ORDERED: Cefepime 1 GM in Sodium Chloride 0.9% 100 ML IVPB SCH (02:15)
[2019-08-23] MEDS: methylPREDNISolone Sod Succ 40 MG VIAL IVP SCH ×3 (05:52→21:42)
[2019-08-23] MEDS: Sodium Chloride 0.9% 1,000 ML IV SCH ×3 (05:53→19:52)
[2019-08-23 06:42] LABS: #Lymphocytes 0.7 thou/uL (1.20-3.40); #Monocytes 0.1 thou/uL (0.11-0.59); #Neutrophils 10.5 thou/uL (1.40-6.50); %Basophils 0.2 % (0.0-1.0); %Eosinophils 0.1 % (0.0-10.0); %Lymphocytes 6.1 % (21.0-51.0); %Monocytes 0.8 % (0.0-10.0); %Neutrophils 92.8 % (42.0-75.0); Hemoglobin 11.2 g/dL (14.0-18.0); Mean Corpuscular HGB CONC 32.9 g/dL (32.0-36.0); Mean Corpuscular Hemoglobin 30.5 pg (27.0-31.0); Mean Corpuscular Volume 92.7 fL (78.0-98.0); Platelet Count 204 thou/uL (130-400); RBC Distribution Width 13.7 % (11.5-14.5); Red Blood Cell (RBC) Count 3.67 mill/uL (4.70-6.10); White Blood Cell (WBC) Count 11.4 thou/uL (4.8-10.8)
[2019-08-23 07:11] LABS: INR-International Normal Ratio 2.7; Prothrombin Time 28.3 SEC (12.0-14.7)
[2019-08-23 07:12] LABS: Anion Gap 14 mmol/L (10-20); BUN (Urea Nitrogen) 17 mg/dL (8.4-25.7); Calc. Creatinine Clearance 75 mL/min (70-130); Calcium 8.1 mg/dL (7.8-10.44); Carbon Dioxide 20 mmol/L (23-31); Chloride 109 mmol/L (98-107); Estimated GFR-MDRD 85; Glucose 109 mg/dL (83-110); Potassium 5.1 mmol/L (3.5-5.1); Sodium 138 mmol/L (136-145)
[2019-08-23] MEDS: Carvedilol 6.25 MG TAB PO SCH ×2 (09:00→19:44)
[2019-08-23] MEDS: Valproate Sodium 250 mg/5 ml UD Cup PO SCH ×2 (09:00→19:45)
[2019-08-23] MEDS: Gabapentin 400 MG CAP PO SCH ×2 (09:00→19:44)
[2019-08-23] MEDS: Famotidine 20 MG TAB PO SCH ×3 (09:00→19:44)
[2019-08-23] MEDS: Enoxaparin Sodium 40 MG/0.4 ML SYRINGE SC SCH (09:35)
[2019-08-23] MEDS: Vancomycin HCl 1 GM in Premix Bag 1 BAG IVPB SCH (11:32)
--- NOTE | 2019-08-23 14:33 | PDOC.HOSPP ---
- Subjective Encounter Date: 08/23/19 Encounter Time: 10:30 Subjective: pt up in bed wants to eat, at bedside. - Objective Vital Signs & Weight: Vital Signs (12 hours) Temp Pulse Resp BP Pulse Ox 08/23/19 11:27 98.2 F 83 18 155/63 H 94 L 08/23/19 09:02 94 L 08/23/19 08:00 99.2 F 83 20 147/56 H 94 L 08/23/19 04:20 98.5 F 71 17 115/56 L 97 Weight Weight 185 lb I&O: 08/22/19 08/23/19 08/24/19 06:59 06:59 06:59 Intake Total 1210 Balance 1210 Result Diagrams: 08/23/19 06:25 08/23/19 06:25 Hospitalist ROS - Review of Systems Other: unable to obtain - Medication Medications: Active Medications Generic Name Dose Route Start Last Admin Trade Name Freq PRN Reason Stop Dose Admin Atorvastatin Calcium 40 mg 08/22/19 21:00 08/22/19 21:35 Lipitor PO Not Given HS DAVID Carvedilol 6.25 mg 08/22/19 21:00 08/23/19 09:00 Coreg PO Not Given BID DAVID Enoxaparin Sodium 40 mg 08/23/19 09:00 08/23/19 09:35 Lovenox SC 40 mg 0900 DAVID Administration Famotidine 20 mg 08/22/19 21:00 08/23/19 09:00 Pepcid PO Not Given BID DAVID Gabapentin 800 mg 08/22/19 21:00 08/23/19 09:00 Neurontin PO Not Given BID DAVID Sodium Chloride 1,000 mls @ 70 mls/hr 08/22/19 15:36 08/23/19 09:36 Normal Saline 0.9% IV 1,000 mls .[id number] DAVID Administration Vancomycin HCl 1 gm/ Device 200 mls @ 200 mls/hr 08/23/19 00:00 08/23/19 11: 32 IVPB 200 mls 0000,1200 DAVID Administration Latanoprost 1 drop 08/22/19 21:00 08/22/19 21:18 Xalatan 0.005% Ophth Soln EA EYE 1 drop HS DAVID Administration Melatonin 3 mg 08/22/19 21:00 08/22/19 21:17 Melatonin PO Not Given HS DAVID Methylprednisolone Sodium Succinate 20 mg 08/22/19 22:00 08/23/19 05:52 Solu-Medrol IVP 20 mg Q8HR DAVID Administration Sodium Chloride 10 ml 08/22/19 19:57 08/22/19 21:19 Flush - Normal Saline IVF 10 ml PRN PRN Administration Saline Flush Trazodone HCl 50 mg 08/22/19 21:00 08/22/19 21:18 Desyrel PO Not Given HS DAVID Valproic Acid 375 mg 08/22/19 21:00 08/23/19 09:00 Depakene Liquid PO Not Given BID DAVID Warfarin Sodium 7.5 mg 08/22/19 17:00 08/22/19 21:35 Coumadin PO Not Given [address] [facility] - Exam Heart: negative: RRR, no murmur, no gallops, no rubs, normal peripheral pulses, irregular, diminshed peripheral pulses, murmur present, II/IV, III/IV Respiratory: negative: CTAB, no wheezes, no rales, no ronchi, normal chest expansion, no tachypnea, normal percussion, rales, rhonchi, tachypneic, wheezes Gastrointestinal: negative: soft, non-tender, non-distended, normal bowel sounds , no palpable masses, no hepatomegaly, no splenomegaly, no bruit, no guarding, no rigidity, tender to palpation, distended, diminished bowl sounds, voluntary guarding Hosp A/P (1) Sepsis Code(s): A41.9 - SEPSIS, UNSPECIFIED ORGANISM Status: Acute (2) Aspiration pneumonia Code(s): J69.0 - PNEUMONITIS DUE TO INHALATION OF FOOD AND VOMIT Status: Acute (3) Chronic anticoagulation Code(s): Z79.01 - [employer]STRUMENTAL [employer]IC [employer] (CURRENT) USE OF ANTICOAGULANTS Status: Chronic (4) Dementia Code(s): F03.90 - UNSPECIFIED DEMENTIA WITHOUT BEHAVIORAL DISTURBANCE Status: Chronic Qualifiers: (5) Acute encephalopathy Code(s): G93.40 - ENCEPHALOPATHY, UNSPECIFIED Status: Resolved - Plan will continue broad spectrum abx for now. He has had a peg tube but pt's states that his pipe connector states that he cannot get another one due to anesthesia risk on his heart. will get speech to see him.
[2019-08-23] MEDS: Allopurinol 300 MG TAB PO SCH (15:03)
[2019-08-23] MEDS: Amlodipine 10 MG TAB PO SCH (15:03)
[2019-08-23] MEDS: Aspirin 81 mg Enteric Coated Tablet PO SCH (15:04)
[2019-08-23] MEDS: Docusate 100 MG CAP PO SCH (15:05)
[2019-08-23] MEDS: Polyethylene Glycol 3350 17 GM Packet PO SCH (15:06)
[2019-08-23] MEDS ORDERED: Haloperidol Lactate 5 MG/ML VIAL SLOW IVP SCH (16:00)
--- NOTE | 2019-08-23 17:25 | CON ---
DATE OF CONSULTATION: 08/23/2019 REASON FOR CONSULTATION: Fever. HISTORY OF PRESENT ILLNESS: An 83-year-old, whom I had seen recently just a few days ago when he presented with a history of cognitive dysfunction, [facility] resident with worsening mental state and possibility of fever from [facility]. He had some respiratory symptoms and recently, the dietary intake was changed to soft mechanical diet by speech therapist. After evaluation, we felt that the urinary tract is more likely scenario. He did have pyuria and positive urine cultures with a quite resistant E coli. Imaging study done during this initial admission was consistent with renal mass, left side, with the imaging characteristics of renal cell cancer. He also had a large cyst in the left kidney concerning for cystic renal cell cancer. The patient has received 2 weeks, I believe, of meropenem and [facility] to the [facility], and now is brought back here with episode of fever up to 101.7 at the [facility], had some coughing spells, but other than that, no diarrhea, no aspiration that was obvious. No genitourinary symptoms. PAST MEDICAL HISTORY: Dementia; osteoarthritis; gout; oropharyngeal dysphagia; glaucoma; cataracts; TIA; ulcers; hypertension; PVD; pulmonary embolism, on chronic warfarin; UTI; renal mass, consistent with renal cell cancer, left side. SOCIAL HISTORY: [facility]. No smoking history. ALLERGIES: DOXYCYCLINE, PENICILLIN, AND SULFA DRUGS. CURRENT MEDICATIONS: 1. Tylenol. 2. Zyloprim. 3. Norvasc. 4. Ecotrin. 5. Lipitor. 6. Dulcolax. 7. Coreg. 8. Cefepime. 9. Lovenox. 10. Pepcid. 11. Neurontin. 12. Robitussin. 13. Haldol. 14. Xalatan. 15. Melatonin. 17. Florastor. 18. Senokot. 19. Vancomycin. PHYSICAL EXAMINATION: VITAL SIGNS: He has been afebrile since admission, blood pressure 150/63, pulse 83, respirations 18, O2 saturation 94. SKIN: Peripheral IV access. He is voiding in the diaper. No other skin abnormalities noted. No lymphadenopathy. Alopecia. HEENT: Ocular movements conjugate. Conjunctivae normal. Oral cavity not remarkable. No white earth teeth remaining. NECK: Supple. LUNGS: With fairly clear breath sounds. HEART: S1 and S2, irregular rate. No murmurs. ABDOMEN: Soft. Not distended or tender. No ascites. No bladder distention. : No genital abnormalities. EXTREMITIES: He is able to move extremities on command. PSYCHIATRIC: Kind of cantankerous and not very cooperative during the examination. Some delusional thinking process. LABORATORY STUDIES: White cell count 16.7 and now 11.4, hemoglobin 10.8, platelets 227, and 88% neutrophils. INR 2.5 and 2.7. Chemistry was normal except for lactic acid 2.4, globulin 3.7, albumin 2.7. Urinalysis with 0 to 3 wbc's. Microbiology, 1/2 sets of blood cultures with coagulase negative Staph, likely contaminant. Urine culture, no growth in 24 hours. Chest x-ray, elevation of left hemidiaphragm and cardiomegaly. ASSESSMENT: 1. Dementia. 2. Prior thromboembolism, on therapeutic warfarin. 3. Renal cell cancer, who is not eligible for treatment. 4. Fever, some cough at the [facility]. DISCUSSION: Differential diagnosis includes respiratory tract infection, maybe a viral etiology versus early bacterial pneumonia versus an alternate source. The urinary tract does not seem to be involved this time, although renal cell cancer can sometimes be associated with tumor associated fever that is a diagnosis of exclusion. No evidence of bone or joint inflammatory activity at this time. We will check his respiratory virus PCR. Discontinue vancomycin. Job ID: [id number] [facility]
[2019-08-23] MEDS: Warfarin Sodium 7.5 MG TAB PO SCH (17:55)
[2019-08-23] MEDS: Melatonin 3 MG TAB PO SCH (19:44)
[2019-08-23] MEDS: traZODone HCl 50 MG TAB PO SCH (19:45)
[2019-08-23] MEDS: Atorvastatin Calcium 40 MG TAB PO SCH (19:45)
[2019-08-23] MEDS: Latanoprost 0.005% Ophth Soln 2.5 ml Bottle EA EYE SCH (19:45)
[2019-08-23 23:58] LABS: Vancomycin, Trough 18.1 ug/mL
[2019-08-24] MEDS: Cefepime 1 GM in Sodium Chloride 0.9% 100 ML IVPB SCH ×2 (01:50→13:47)
[2019-08-24] MEDS: methylPREDNISolone Sod Succ 40 MG VIAL IVP SCH (05:03)
[2019-08-24 06:15] LABS: INR-International Normal Ratio 3.5; Prothrombin Time 35.1 SEC (12.0-14.7)
[2019-08-24] MEDS: Polyethylene Glycol 3350 17 GM Packet PO SCH (09:03)
[2019-08-24] MEDS: Famotidine 20 MG TAB PO SCH ×2 (09:03→19:49)
[2019-08-24] MEDS: Valproate Sodium 250 mg/5 ml UD Cup PO SCH ×2 (09:03→19:49)
[2019-08-24] MEDS: Gabapentin 400 MG CAP PO SCH ×2 (09:04→19:49)
[2019-08-24] MEDS: Amlodipine 10 MG TAB PO SCH (09:04)
[2019-08-24] MEDS: Allopurinol 300 MG TAB PO SCH (09:04)
[2019-08-24] MEDS: Carvedilol 6.25 MG TAB PO SCH ×2 (09:04→19:48)
[2019-08-24] MEDS: Saccharomyces boulardii 250 MG CAP PO SCH (09:05)
[2019-08-24] MEDS: Docusate 100 MG CAP PO SCH (09:05)
[2019-08-24] MEDS: Enoxaparin Sodium 40 MG/0.4 ML SYRINGE SC SCH (09:05)
[2019-08-24] MEDS: Aspirin 81 mg Enteric Coated Tablet PO SCH (09:05)
[2019-08-24] MEDS: Sodium Chloride 0.9% 1,000 ML IV SCH (10:22)
--- NOTE | 2019-08-24 15:13 | PDOC.HOSPP ---
- Subjective Encounter Date: 08/24/19 Encounter Time: 10:30 Subjective: pt up in bed confused. at bedside - Objective Vital Signs & Weight: Vital Signs (12 hours) Temp Pulse Resp BP BP Pulse Ox 08/24/19 09:04 80 162/79 H 08/24/19 08:00 98.2 F 64 18 128/64 96 08/24/19 06:34 95 Weight Weight 185 lb I&O: 08/23/19 08/24/19 08/25/19 06:59 06:59 06:59 Intake Total 1210 Balance 1210 Result Diagrams: 08/23/19 06:25 08/23/19 06:25 Hospitalist ROS - Review of Systems Other: unable to obtain - Medication Medications: Active Medications Generic Name Dose Route Start Last Admin Trade Name Freq PRN Reason Stop Dose Admin Acetaminophen 650 mg 08/22/19 15:36 08/24/19 05:04 Tylenol PO 650 mg Q4H PRN Administration Headache/Fever/Mild Pain (1-3) Allopurinol 300 mg 08/23/19 09:00 08/24/19 09:04 Zyloprim PO 300 mg DAILY DAVID Administration Amlodipine Besylate 10 mg 08/23/19 09:00 08/24/19 09:04 Norvasc PO 10 mg DAILY DAVID Administration Aspirin 81 mg 08/23/19 09:00 08/24/19 09:05 Ecotrin PO 81 mg DAILY DAVID Administration Atorvastatin Calcium 40 mg 08/22/19 21:00 08/23/19 19:45 Lipitor PO 40 mg HS DAVID Administration Carvedilol 6.25 mg 08/22/19 21:00 08/24/19 09:04 Coreg PO 6.25 mg BID DAVID Administration Docusate Sodium 100 mg 08/23/19 09:00 08/24/19 09:05 Colace PO 100 mg DAILY DAVID Administration Enoxaparin Sodium 40 mg 08/23/19 09:00 08/24/19 09:05 Lovenox SC 40 mg 0900 DAVID Administration Famotidine 20 mg 08/22/19 21:00 08/24/19 09:03 Pepcid PO 20 mg BID DAVID Administration Gabapentin 800 mg 08/22/19 21:00 08/24/19 09:04 Neurontin PO 800 mg BID DAVID Administration Sodium Chloride 1,000 mls @ 70 mls/hr 08/22/19 15:36 08/24/19 10:22 Normal Saline 0.9% IV 1,000 mls .[id number] DAVID Administration Cefepime HCl 1 gm/ Sodium 100 mls @ 200 mls/hr 08/23/19 14:00 08/24/19 13:47 Chloride IVPB 100 mls 0200,1400 DAVID Administration Latanoprost 1 drop 08/22/19 21:00 08/23/19 19:45 Xalatan 0.005% Ophth Soln EA EYE Not Given HS DAVID Melatonin 3 mg 08/22/19 21:00 08/23/19 19:44 Melatonin PO 3 mg HS DAVID Administration Polyethylene Glycol 17 gm 08/23/19 09:00 08/24/19 09:03 Miralax PO 17 gm DAILY DAVID Administration Saccharomyces Boulardii 250 mg 08/24/19 09:00 08/24/19 09:05 Florastor PO 250 mg DAILY DAVID Administration Sodium Chloride 10 ml 08/22/19 19:57 08/22/19 21:19 Flush - Normal Saline IVF 10 ml PRN PRN Administration Saline Flush Trazodone HCl 50 mg 08/22/19 21:00 08/23/19 19:45 Desyrel PO 50 mg HS DAVID Administration Valproic Acid 375 mg 08/22/19 21:00 08/24/19 09:03 Depakene Liquid PO 375 mg BID DAVID Administration - Exam Heart: negative: RRR, no murmur, no gallops, no rubs, normal peripheral pulses, irregular, diminshed peripheral pulses, murmur present, II/IV, III/IV Respiratory: negative: CTAB, no wheezes, no rales, no ronchi, normal chest expansion, no tachypnea, normal percussion, rales, rhonchi, tachypneic, wheezes Gastrointestinal: negative: soft, non-tender, non-distended, normal bowel sounds , no palpable masses, no hepatomegaly, no splenomegaly, no bruit, no guarding, no rigidity, tender to palpation, distended, diminished bowl sounds, voluntary guarding Hosp A/P (1) Sepsis Code(s): A41.9 - SEPSIS, UNSPECIFIED ORGANISM Status: Acute (2) Aspiration pneumonia Code(s): J69.0 - PNEUMONITIS DUE TO INHALATION OF FOOD AND VOMIT Status: Acute (3) Renal mass Code(s): N28.89 - OTHER SPECIFIED DISORDERS OF KIDNEY AND URETER Status: Acute (4) Dementia Code(s): F03.90 - UNSPECIFIED DEMENTIA WITHOUT BEHAVIORAL DISTURBANCE Status: Chronic Qualifiers: (5) Hypertension Code(s): I10 - ESSENTIAL (PRIMARY) HYPERTENSION Status: Chronic Qualifiers: - Plan 08/24 will continue abx for now. viral study negative. will await urine cx. will monitor for now. pt's is suppose to follow up with urology for his renal mass. pt's wants pt to have palliative care but she will initiate that at the assisted.
[2019-08-24] MEDS ORDERED: Warfarin Sodium 7.5 MG TAB PO SCH (17:00)
[2019-08-24] MEDS: Latanoprost 0.005% Ophth Soln 2.5 ml Bottle EA EYE SCH (18:55)
[2019-08-24] MEDS: traZODone HCl 50 MG TAB PO SCH (19:48)
[2019-08-24] MEDS: Melatonin 3 MG TAB PO SCH (19:49)
[2019-08-24] MEDS: Atorvastatin Calcium 40 MG TAB PO SCH (19:49)
[2019-08-25] MEDS: Sodium Chloride 0.9% 1,000 ML IV SCH (00:38)
[2019-08-25] MEDS: Cefepime 1 GM in Sodium Chloride 0.9% 100 ML IVPB SCH ×2 (01:43→13:48)
[2019-08-25 05:40] LABS: Prothrombin Time 47.1 SEC (12.0-14.7)
[2019-08-25 05:42] LABS: INR-International Normal Ratio 5.2
[2019-08-25] MEDS: Valproate Sodium 250 mg/5 ml UD Cup PO SCH ×2 (08:53→19:53)
[2019-08-25] MEDS: Docusate 100 MG CAP PO SCH (08:54)
[2019-08-25] MEDS: Aspirin 81 mg Enteric Coated Tablet PO SCH (08:54)
[2019-08-25] MEDS: Allopurinol 300 MG TAB PO SCH (08:54)
[2019-08-25] MEDS: Famotidine 20 MG TAB PO SCH ×2 (08:54→19:53)
[2019-08-25] MEDS: Gabapentin 400 MG CAP PO SCH ×2 (08:54→19:53)
[2019-08-25] MEDS: Saccharomyces boulardii 250 MG CAP PO SCH (08:55)
[2019-08-25] MEDS: Carvedilol 6.25 MG TAB PO SCH ×2 (08:57→19:52)
[2019-08-25] MEDS: Amlodipine 10 MG TAB PO SCH (08:57)
[2019-08-25] MEDS: Polyethylene Glycol 3350 17 GM Packet PO SCH (08:58)
[2019-08-25 09:09] LABS: #Lymphocytes 1.2 thou/uL (1.20-3.40); #Monocytes 0.5 thou/uL (0.11-0.59); #Neutrophils 4.2 thou/uL (1.40-6.50); %Basophils 0.3 % (0.0-1.0); %Eosinophils 0.2 % (0.0-10.0); %Lymphocytes 20.3 % (21.0-51.0); %Neutrophils 71.1 % (42.0-75.0); Hemoglobin 10.8 g/dL (14.0-18.0); Mean Corpuscular HGB CONC 31.8 g/dL (32.0-36.0); Mean Corpuscular Hemoglobin 29.6 pg (27.0-31.0); Mean Corpuscular Volume 93.1 fL (78.0-98.0); Mean Platelet Volume 9.2 fL (7.4-10.4); Platelet Count 170 thou/uL (130-400); RBC Distribution Width 13.9 % (11.5-14.5); Red Blood Cell (RBC) Count 3.66 mill/uL (4.70-6.10); White Blood Cell (WBC) Count 5.9 thou/uL (4.8-10.8)
[2019-08-25 09:15] LABS: Prothrombin Time 46.4 SEC (12.0-14.7)
[2019-08-25 09:26] LABS: ALT (SGPT) Less than 7 U/L (8-55); AST (SGOT) 9 U/L (5-34); Albumin 2.6 g/dL (3.4-4.8); Alkaline Phosphatase 66 U/L (40-110); Anion Gap 10 mmol/L (10-20); BUN (Urea Nitrogen) 19 mg/dL (8.4-25.7); Bilirubin, Total 0.3 mg/dL (0.2-1.2); Calc. Creatinine Clearance 78 mL/min (70-130); Calcium 8.2 mg/dL (7.8-10.44); Carbon Dioxide 28 mmol/L (23-31); Chloride 107 mmol/L (98-107); Estimated GFR-MDRD 89; Globulin 3.1 g/dL (2.4-3.5); Glucose 90 mg/dL (83-110); Potassium 4.6 mmol/L (3.5-5.1); Protein, Total 5.7 g/dL (5.8-8.1); Sodium 140 mmol/L (136-145)
[2019-08-25 09:28] LABS: INR-International Normal Ratio 5.1
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
--- NOTE | 2019-08-25 17:16 | PRG ---
DATE OF SERVICE: 08/25/2019 SUBJECTIVE: The patient keeps repeating that his nose is bothering him. It is not clear to me what the problem is. He is tearing a little bit. He has a little bit of conjunctival hyperemia. His corneas are okay. OBJECTIVE: VITAL SIGNS: His vital signs are pretty stable. He has been afebrile since admission to this hospital. Blood pressure 170/68, pulse 62, respirations 18, O2 saturation 94% to 95%. HEENT: The eye exam is normal except for mild conjunctival hyperemia. I do not see any abnormality in the nose area. LUNGS: Symmetric air entry. HEART: S1 and S2, regular rate. ABDOMEN: Soft not distended. He is incontinent. LABORATORY DATA: White cell count is 5.9, hemoglobin 10.8, and platelets. Chemistry not particularly remarkable. Microbiology with negative respiratory virus PCR panel. Previously noted chest x-ray with persistent elevation of left hemidiaphragm and left basilar atelectases. ASSESSMENT AND DISCUSSION: 1. Dementia. 2. Prior thromboembolism, on therapeutic warfarin. 3. Renal cell cancer, not eligible for treatment. 4. F[facility], [facility], which seems to have resolved. At this point, we will discontinue all antimicrobials and follow up clinical course, will be transferred back to long-term soon. He remains stable. Job ID: [id number] [facility]
[2019-08-25] MEDS: Latanoprost 0.005% Ophth Soln 2.5 ml Bottle EA EYE SCH (19:15)
[2019-08-25] MEDS: Atorvastatin Calcium 40 MG TAB PO SCH (19:52)
[2019-08-25] MEDS: traZODone HCl 50 MG TAB PO SCH (19:53)
[2019-08-25] MEDS: Melatonin 3 MG TAB PO SCH (19:53)
[2019-08-26 06:42] LABS: #Lymphocytes 1.6 thou/uL (1.20-3.40); #Monocytes 0.6 thou/uL (0.11-0.59); #Neutrophils 3.6 thou/uL (1.40-6.50); %Basophils 0.3 % (0.0-1.0); %Eosinophils 0.5 % (0.0-10.0); %Lymphocytes 26.7 % (21.0-51.0); %Monocytes 10.6 % (0.0-10.0); %Neutrophils 61.9 % (42.0-75.0); Hemoglobin 10.5 g/dL (14.0-18.0); Mean Corpuscular HGB CONC 32.4 g/dL (32.0-36.0); Mean Corpuscular Hemoglobin 29.9 pg (27.0-31.0); Mean Corpuscular Volume 92.3 fL (78.0-98.0); Mean Platelet Volume 9.1 fL (7.4-10.4); Platelet Count 185 thou/uL (130-400); RBC Distribution Width 13.8 % (11.5-14.5); Red Blood Cell (RBC) Count 3.52 mill/uL (4.70-6.10); White Blood Cell (WBC) Count 5.8 thou/uL (4.8-10.8)
[2019-08-26 06:46] LABS: Prothrombin Time 40.7 SEC (12.0-14.7)
[2019-08-26 06:57] LABS: INR-International Normal Ratio 4.3
[2019-08-26 07:13] LABS: ALT (SGPT) Less than 7 U/L (8-55); AST (SGOT) 9 U/L (5-34); Albumin 2.4 g/dL (3.4-4.8); Alkaline Phosphatase 66 U/L (40-110); Anion Gap 9 mmol/L (10-20); BUN (Urea Nitrogen) 16 mg/dL (8.4-25.7); Bilirubin, Total 0.4 mg/dL (0.2-1.2); Calc. Creatinine Clearance 79 mL/min (70-130); Calcium 8.1 mg/dL (7.8-10.44); Carbon Dioxide 32 mmol/L (23-31); Chloride 105 mmol/L (98-107); Estimated GFR-MDRD Greater than 90; Glucose 84 mg/dL (83-110); Protein, Total 5.4 g/dL (5.8-8.1); Sodium 142 mmol/L (136-145)
[2019-08-26] MEDS: Carvedilol 6.25 MG TAB PO SCH ×2 (08:51→08:53)
[2019-08-26] MEDS: Amlodipine 10 MG TAB PO SCH (08:51)
[2019-08-26] MEDS: Gabapentin 400 MG CAP PO SCH (08:51)
[2019-08-26] MEDS: Saccharomyces boulardii 250 MG CAP PO SCH (08:51)
[2019-08-26] MEDS: Famotidine 20 MG TAB PO SCH (08:51)
[2019-08-26] MEDS: Allopurinol 300 MG TAB PO SCH (08:51)
[2019-08-26] MEDS: Docusate 100 MG CAP PO SCH (08:51)
[2019-08-26] MEDS: Aspirin 81 mg Enteric Coated Tablet PO SCH (08:51)
[2019-08-26] MEDS: Polyethylene Glycol 3350 17 GM Packet PO SCH (08:52)
[2019-08-26] MEDS: Valproate Sodium 250 mg/5 ml UD Cup PO SCH (08:52)
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
[2019-08-26 11:26] VITALS: BP 113/51; TEMP 98.3
--- NOTE | 2019-08-26 11:30 | DIS ---
DATE OF ADMISSION: 08/22/2019 DATE OF DISCHARGE: 08/26/2019 PRIMARY CARE PHYSICIAN: [facility] Call Admission. DISCHARGE DISPOSITION: [facility] home. PRIMARY DISCHARGE DIAGNOSES: Sepsis, resolved; aspiration pneumonia, treated in the hospital; warfarin induced coagulopathy. SECONDARY DISCHARGE DIAGNOSES: Chronic kidney disease, stage 3; history of chronic systolic heart failure; chronic anticoagulation; anxiety and depression; glaucoma; dementia; gout; moderate mitral valve regurgitation. PRIMARY PROCEDURE/OPERATION: None. RADIOLOGICAL INVESTIGATION: Chest x-ray on admission showed elevated left hemidiaphragm and left basilar atelectasis, cardiomegaly. SIGNIFICANT LABORATORY DATA: WBC 5.8, hemoglobin 10.5, platelets 185. INR 4.3. Sodium 142, creatinine 0.81, albumin 2.4. Urinalysis unremarkable. Blood culture negative. Respiratory virus panel negative. Urine culture negative. DISCHARGE MEDICATIONS: 1. DuoNeb q.2 hourly p.r.n. 2. Tylenol 500 mg q.8 hourly p.r.n. 3. Allopurinol 300 mg daily. 4. Aspirin 81 mg daily. 5. Lipitor 40 mg daily. 6. Tums 500 mg daily p.r.n. 7. Coreg 6.25 mg b.i.d. 8. Colace 100 mg daily. 9. Gabapentin 800 mg b.i.d. 10. Milk of magnesia 30 mL daily p.r.n. 11. Melatonin 3 mg p.o. at bedtime. 12. MiraLAX 17 g daily. 13. Travatan Z one drop each eye at bedtime. 14. Trazodone 50 mg at bedtime. 15. Warfarin as per previous home dose, but that will be resumed on August 29, 2019. The patient will need PT/INR check every week. 16. Amlodipine 10 mg daily. 17. Senokot-S two tablets b.i.d. p.r.n. 18. Valproic acid 375 mg b.i.d. CONTRAINDICATION: None. CODE STATUS: DNR. INPATIENT LIGHT ARMORED VEHICLE OFFICER: Dr. Barbosa was consulted for suspected sepsis and he recommended that this patient does not have any evidence of ongoing sepsis and he recommended to discontinue antibiotic therapy. ALLERGIES: DOXYCYCLINE, PENICILLIN, AND SULFA DRUGS. DISCHARGE PLAN: Posthospital, [facility]. Subsequently, the patient will follow up with primary care physician. HOSPITAL COURSE: An 83-year-old male with above-mentioned medical problem, who lives at [facility], who was admitted by Dr. Davis. Please see his H and P for further details. The patient was having fever at [facility] and he was found with leukocytosis, and his chest x-ray showed left basilar infiltration and that is why he was treated as if it is aspiration pneumonia. Dr. Barbosa was consulted and he checked respiratory virus panel and it came back negative. Dr. Barbosa was not impressed with any sepsis picture, but he recommended to discontinue antibiotic therapy, pretty much thinking was that like the patient most likely had a viral illness that improved. He did not require any further antibiotic therapy. He had supratherapeutic INR and that is why we hold the warfarin therapy while in hospital and the patient will resume warfarin on August 29, 2019. The patient is hemodynamically stable up to his baseline level. Rest of medication, he will continue there. Paperwork for discharge done. Discharge medication reconciliation done. Overall, the patient is medically stable for discharge. Job ID: [id number]
== END 2019-08-26 13:41 | DRG 177 ==
LOC: ERS 12:35 → T4-A 15:11
PROVIDERS: ADMIT Internal Medicine; ATTEND Internal Medicine
DX: J69.0 Pneumonitis due to inhalation of food and vomit (principal); A41.9 Sepsis, unspecified organism; I50.22 Chronic systolic (congestive) heart failure; G93.40 Encephalopathy, unspecified; E87.2 Acidosis; D68.9 Coagulation defect, unspecified; I13.0 Hypertensive heart and chronic kidney disease with heart failure and stage 1 through stage 4 chronic kidney disease, or unspecified chronic kidney disease; J98.11 Atelectasis; F03.90 Unspecified dementia, unspecified severity, without behavioral disturbance, psychotic disturbance, mood disturbance, and anxiety; M19.90 Unspecified osteoarthritis, unspecified site; M10.9 Gout, unspecified; I73.9 Peripheral vascular disease, unspecified; Z96.651 Presence of right artificial knee joint; Z66 Do not resuscitate; N40.0 Benign prostatic hyperplasia without lower urinary tract symptoms; G40.909 Epilepsy, unspecified, not intractable, without status epilepticus; F32.9 Major depressive disorder, single episode, unspecified; F41.9 Anxiety disorder, unspecified; I25.10 Atherosclerotic heart disease of native coronary artery without angina pectoris; H40.9 Unspecified glaucoma; I34.0 Nonrheumatic mitral (valve) insufficiency; T45.515A Adverse effect of anticoagulants, initial encounter; N18.3 Chronic kidney disease, stage 3 (moderate); Z85.828 Personal history of other malignant neoplasm of skin; Z86.711 Personal history of pulmonary embolism; Z79.51 Long term (current) use of inhaled steroids; Z87.891 Personal history of nicotine dependence; Z85.528 Personal history of other malignant neoplasm of kidney; Z85.21 Personal history of malignant neoplasm of larynx; Z95.5 Presence of coronary angioplasty implant and graft; Z88.1 Allergy status to other antibiotic agents; Z88.0 Allergy status to penicillin; Z88.2 Allergy status to sulfonamides; Z88.8 Allergy status to other drugs, medicaments and biological substances; Z79.82 Long term (current) use of aspirin; Z79.899 Other long term (current) drug therapy; Z86.73 Personal history of transient ischemic attack (TIA), and cerebral infarction without residual deficits
CPT/HCPCS: 36415; 51701; 71045; 80048; 80053; 80202; 81003; 81015; 83605; 85025; 85610; 87040; 87086; 87149; 87633; 94760; 96365; 96367; J0692; J1630; J1650; J2920; J3370; J3490